=== PATIENT | female | born 1960 | race Caucasian/White ===

== ENCOUNTER 2021-02-21 13:26 | Emergency (ER) | payer OTHER ==
--- OUTSIDE RECORDS SUMMARY | 2021-02-21 13:32 | XMS REPORT | Encounter Summary ---
Author Author [facility] Address Unknown Phone Unavailable Care Team Providers Care Marine Design Engineer Name Role Phone Evan Sierra MD PCP Ashley Merrill MD Unavailable [phone] Encounter Details Care Team Description Date Type [place] [address] [place] [address] Malignant neoplasm of overlapping sites of both breasts in female, estrogen receptor positive (HCC) (Primary Dx); Encounter for screening laboratory testing for COVID-19 virus in asymptomatic patient 02/07/2021 Prep for Case General Surgery: In [facility] [address] [place] [phone] Social History Date Tobacco Use Types Packs/Day Years Used Former Smoker Smokeless Tobacco: Never Used Comments: quit 19 years ago Comments Alcohol Use Standard Drinks/Week Not Currently 0 (1 standard drink = 0.6 o z pure alcohol) Alcohol Habits Answer Date Recorded How often do you have a drink containing alcohol? Never 06/10/2020 How many drinks containing alcohol do you have on No t asked a typical day when you are drinking? How often do you have six or more drinks on one Not asked occasion? Comment: Not asked Sex Assigned at Date Recorded Female 02/14/2021 9:03 AM SHOP TEACHER Date Recorded COVID-19 Exposure Response 02/10/2021 12:36 PM SHOP TEACHER In the last month, have you been in contact with No / Unsure someone who was confirmed or suspected to have Coronavirus / COVID-19? documented as of this encounter Functional Status Date of Assessment Functional Status Response 06/13/2020 Does the patient have a hearing impairment: No 06/13/2020 Does the patient have a visual impairment: Yes documented as of this encounter Plan of Treatment Order Schedule Name Type Priority Associated Diag noses Expected: 02/15/2021 (Approximate), Expi res: 02/07/2022 COVID-19 (SARS-COV-2) PCR Microbiology Routine Enco unter for screening laboratory testing for COVID-19 virus in asymptomatic patient documented as of this encounter Visit Diagnoses Diagnosis Malignant neoplasm of overlapping sites of both breasts in female, estrogen receptor positive (HCC) - Primary Encounter for screening laboratory test ing for COVID-19 virus in asymptomatic patient documented in this encounter Orders First Ordered Date Case Request Count Last Ordered Date CASE REQUEST 1 02/07/2021 documented in this encounter Additional Health Concerns Noted Time Assessment 02/07/2021 10:00 AM SHOP TEACHER A fall risk assessment has been complet ed for the patient documented as of this encounter Care Teams Start Date End Date Marine Design Engineer Relationship Specialty 06/07/20 Evan Sierra MD PCP - General Family [address] [place] [id number] 07/21/20 Segun Merrill MD [address] [place] [address] documented as of this encounter
--- OUTSIDE RECORDS SUMMARY | 2021-02-21 13:32 | XMS REPORT | Encounter Summary ---
Author Author [facility] Address Unknown Phone Unavailable Care Team Providers Care Intelligence Director Name Role Phone Evan Sierra MD PCP Ashley Merrill MD Unavailable [phone] Encounter Details Care Team Description Date Type Department Sharonda Maya MD [id number] [place], [place] [id number] 02/17/2021 Anesthesia Operating Room: [facility] [place] [phone] Anesthesia Record Responsible Anesthesiologist Anesthesia Start Time Anesthesi a Stop Time Procedure Name Sharonda Maya MD 02/17/21 1334 02/17/21 1407 placement of port-a-cath with fluoroscopy (Right Chest) Date Time Event Comment 1244 1316 AN Equip Check 1333 Out of Pre Procedure 1334 Anes Start 1336 In Room 1337 An Start Data 1338 Start Supplemental O2 1341 Antibiotic Given 1343 Anesthesia Ready 1345 Proc Start 1404 an stop data 1407 Handoff to RN I completed my SBAR handoff to the receiving nurse. 1407 An Stop Meds Name Total midazolam (VERSED) 1 mg/mL injection 2 mg fentaNYL PF (SUBLIMAZE) injection 50 mcg propofol (DIPRIVAN) infusion 149.28 mg ceFAZolin (ANCEF) injection 2 g 2 g lidocaine PF (2%) 100mg/5mL 50 mg lactated ringers infusion 400 mL * Name O2 N2O Inspired * No blood administrations on file. Removal Type Details Placement Wounds 02/17/21; 1351; Surgical incision; 1351 by Severino, Right; Chest MEGGAN Bergman Portacath 02/17/21; 1351; X-ray; Yes; Chest X-ray 02/17/21 1351 by Pacheco Haq RN 02/17/21 1434 by Ginna Sinclair RN Peripheral 02/17/21; 1243; RN; R; Antecubital; 20 02/17/21 1243 by NATE Neville G; 1; 02/17/21; 1434 MEGGAN Wilburn documented in this encounter Social History Date Tobacco Use Types Packs/Day [...] at Date Recorded Female 02/14/2021 9:03 AM JACQUARD CARD CUTTER Date Recorded COVID-19 Exposure Response 02/17/2021 11:19 AM JACQUARD CARD CUTTER In the last month, have you been in contact with No / Unsure someone who was confirmed or suspected to have Coronavirus / COVID-19? documented as of this encounter Functional Status Date of Assessment Functional Status Response 06/13/2020 Does the patient have a hearing impairment: No 06/13/2020 Does the patient have a visual impairment: Yes documented as of this encounter OR Notes * Anesthesia Postprocedure Evaluation - Sharonda Maya MD - 02/20/2021 6:59 AM JACQUARD CARD CUTTER Post-Anesthesia Evaluation Name: Amy Lobato : 1960 Age: 60 y.o. Sex: female Procedure Information Anesthesia Start Date/Time: 02/17/21 1334 Procedure: placement of port-a-cath with fluoroscopy (Right Chest) Location: [facility] RM 7 / [facility] ICC2 OR Surgeons: Jemal Cristobal Jr., MD Post-Anesthesia Vitals Vitals Value Taken Time BP 130/76 02/17/21 1430 Temp 36.5 C (97.7 F) 02/17/21 1430 Pulse 69 02/17/21 1430 Respirations 24 PER MINUTE 02/17/21 1430 SpO2 100 % 02/17/21 1430 ABP ART BP Post Anesthesia Evaluation Note Evaluation location: pre/post Patient participation: recovered; patient participated in evaluation Level of consciousness: alert Pain management: adequate Hydration: normovolemia Temperature: 36.0C - 38.4C Airway patency: adequate Perioperative Events Postoperative Status Cardiovascular status: hemodynamically stable Respiratory status: spontaneous ventilation Additional comments: Post-Anesthesia Evaluation Attestation: I reviewed and agre e the indicated post-anesthesia care was provided. I have reviewed cheema portions of the indicated post anesthesia care. I have examined the patient's vitals, phy sical status, and complications and agree with what is documented. Staff name: Sharonda Maya MD Date: 02/20/2021 Note: late note entry; pt evaluated prior to d/c on 02/17/21 Perioperative Events UARD CARD CUTTER * Anesthesia Preprocedure Evaluation - Sharonda Maya MD - 02/17/2021 12:15 PM JACQUARD CARD CUTTER Anesthesia Pre-Procedure Evaluation Name: Amy Lobato : 1960 Age: 60 y.o. Sex: female Procedure Info: Procedure Information Date/Time: 02/17/21 1300 Procedure: placement of port-a-cath with fluoroscopy (N/A ) Location: [facility] RM 7 / [facility]2 OR Surgeons: Jemal Cristobal Jr., MD Physical Assessment Vital Signs (last filed in past 24 hours): BP: 141/77 (02/17 1221) Temp: 36.9 C (98.4 F) (02/17 1221) Pulse: 74 (02/17 1221) Respirations: 15 PER MINUTE (02/17 1221) SpO2: 100 % (02/17 1221) Height: 154.9 cm (61") (02/17 1221) Weight: 42.6 kg (94 lb) (02/17 1221) Patient History Allergies Allergen Reactions Duloxetine BLISTERS Reported "withdrawl symptoms of agitation, insomnia and development of blister s. Current Medications Medication Directions amitriptyline (ELAVIL) 25 mg tablet Take one tablet by mouth at bedtime daily. I ndications: neuropathic pain loperamide (IMODIUM A-D) 2 mg capsule Take 2 capsules by mouth after first loose /frequent bowel movement, then 1 capsule every 2 hours (2 capsules every 4 hours at night) until 12 hours have passed without a bowel movement. morphine SR (MS CONTIN) 15 mg tablet Take one tablet by mouth every 8 hours ondansetron (ZOFRAN) 8 mg tablet Take one tablet by mouth every 8 hours as neede d for Nausea or Vomiting. oxyCODONE/acetaminophen (ENDOCET) 5/325 mg tablet Take one tablet to two tablets by mouth every 3 hours as needed for Pain senna/docusate (SENOKOT-S) 8.6/50 mg tablet Take 1-2 tablets by mouth twice kary y as needed (constipation). traZODone (DESYREL) 50 mg tablet Take one tablet by mouth at bedtime as needed f or Sleep. If not helpful after 2 weeks, can increase to 100 mg (2 pills) every n ight at bedtime. Review of Systems/Medical History Patient summary reviewed Nursing notes reviewed Pertinent labs reviewed PONV Screening: Female gender, Non-smoker and Postoperative opioids No history of anesthetic complications No family history of anesthetic complications Airway - negative Pulmonary - negative Cardiovascular - negative Exercise tolerance: >4 METS GI/Hepatic/Renal - negative Neuro/Psych - negative Musculoskeletal - negative Endocrine/Other - negative Malignancy: breast CA; s/p mastectomy. Physical Exam Airway Findings Mallampati: I TM distance: >3 FB Neck ROM: full Mouth opening: good Airway patency: adequate Dental Findings: Upper dentures Comments: Lower edentulous Cardiovascular Findings: Negative Pulmonary Findings: Negative Abdominal Findings: Not obese Neurological Findings: Normal mental status Diagnostic Tests Hematology: Lab Results Component Value Date HGB 11.2 02/07/2021 HCT 32.3 02/07/2021 PLTCT 373 02/07/2021 WBC 6.0 02/07/2021 NEUT 73 02/07/2021 ANC 4.40 02/07/2021 ALC 0.70 02/07/2021 SANDEEP 14 02/07/2021 AMC 0.90 02/07/2021 EOSA 0 02/07/2021 ABC 0.00 02/07/2021 MCV 101.0 02/07/2021 MCH 34.9 02/07/2021 MCHC 34.6 02/07/2021 MPV 6.3 02/07/2021 RDW 14.2 02/07/2021 General Chemistry: Lab Results Component Value Date NA 135 02/07/2021 K 4.4 02/07/2021 CL 98 02/07/2021 CO2 27 02/07/2021 GAP 10 02/07/2021 BUN 14 02/07/2021 CR 0.64 02/07/2021 GLU 93 02/07/2021 GLU 102 08/19/2020 CA 9.4 02/07/2021 ALBUMIN 4.1 02/07/2021 MG 2.4 01/25/2021 TOTBILI 0.6 02/07/2021 Coagulation: Lab Results Component Value Date PTT 30.9 01/25/2021 INR 1.0 01/25/2021 Anesthesia Plan ASA score: 3 Plan: MAC NPO status: acceptable Informed Consent Anesthetic plan and risks discussed with patient. Plan discussed with: LIQUEFIED NATURAL GAS PLANT OPERATOR. UARD CARD CUTTER documented in this encounter Plan of Treatment Not on filedocumented as of this encounter Visit Diagnoses Not on filedocumented in this encounter Administered Medications Action Date Dose Rate Site Medication Order MAR Action 02/17/2021 1:41 PM JACQUARD CARD CUTTER 2 g ceFAZolin (ANCEF) injection 2 g Given 2 g, Intravenous, ONCE, 1 dose, On Sat02/17/21 at 1230, Pre-Op 02/17/2021 1:45 PM JACQUARD CARD CUTTER 25 mcg fentaNYL citrate PF (SUBLIMAZE) Given injection Intravenous, INTRA-PROCEDURE MED, Starting on Sat02/17/21 at 1338, Until Sat02/17/21 at 1407, Anesthesia Intra-op 25 mcg Given 02/17/2021 1:38 PM JACQUARD CARD CUTTER 02/17/2021 1:39 PM JACQUARD CARD CUTTER 50 mg lidocaine PF syringe Given Intravenous, INTRA-PROCEDURE MED, Starting on Sat02/17/21 at 1339, Until Sat02/17/21 at 1407, Anesthesia Intra-op 02/17/2021 1:35 PM JACQUARD CARD CUTTER 2 mg midazolam (VERSED) injection Given Intravenous, INTRA-PROCEDURE MED, Starting on Sat02/17/21 at 1335, Until Sat02/17/21 at 1407, Anesthesia Intra-op 02/17/2021 1:39 PM JACQUARD CARD CUTTER 100 mcg/kg/min 25.56 mL/hr propofol (DIPRIVAN) infusion Given - New 20 mL, Intravenous, INTRA-PROCEDURE Bag MED(CONT), Starting on Sat02/17/21 at 1339, Until Sat02/17/21 at 1407, Anesthesia Intra-op 30 mg Given - New Bag 02/17/2021 1:38 PM JACQUARD CARD CUTTER documented in this encounter Additional Health Concerns Noted Time Assessment 02/10/2021 12:36 PM JACQUARD CARD CUTTER A fall risk assessment has been complet ed for the patient documented as of this encounter Care Teams Start Date End Date Intelligence Director Relationship Specialty 06/07/20 Evan Sierra MD PCP - General Family [facility] [place] [address] 07/21/20 Segun Merrill MD [address] [place] [address] documented as of this encounter
--- OUTSIDE RECORDS SUMMARY | 2021-02-21 13:32 | XMS REPORT | Encounter Summary ---
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 [place], [place] Referral ID Status Reason Start Date Expiration Visits Vi sits Date Requested Authorized [id number] Authorized 01/26/2021 01/26/2022 17 17 Encounter Details Care Team Description Date Type Department Jovany Choi MD [address] [place] [address] 02/07/2021 Hospital Oncology: [facility], [facility] [address] [place] [address] Social History Date Tobacco Use Types Packs/Day [...] at Date Recorded Female 02/14/2021 9:03 AM PROFESSIONAL SERVICES MANAGER Date Recorded COVID-19 Exposure Response 02/07/2021 8:19 AM PROFESSIONAL SERVICES MANAGER In the last month, have you been in contact with No / Unsure someone who was confirmed or suspected to have Coronavirus / COVID-19? documented as of this encounter Functional Status Date of Assessment Functional Status Response 06/13/2020 Does the patient have a hearing impairment: No 06/13/2020 Does the patient have a visual impairment: Yes documented as of this encounter Medications at Time of Discharge Start Date End Date Medication Sig Dispensed Refills 02/06/2021 amitriptyline (ELAVIL) 25 Take one 30 tablet 1 mg tabletIndications: tablet by neuropathic pain mouth at bedtime daily. Indications: neuropathic pain 07/12/2020 loperamide (IMODIUM A-D) Take 2 90 capsule 3 2 mg capsuleIndications: capsules by Malignant neoplasm of mouth after overlapping sites of both first breasts in female, loose/frequen estrogen receptor t bowel positive (HCC) movement, then 1 capsule every 2 hours (2 capsules every 4 hours at night) until 12 hours have passed without a bowel movement. 01/26/2021 morphine SR (MS CONTIN) Take one 90 tablet 0 15 mg tablet tablet by mouth every 8 hours 07/21/2020 ondansetron (ZOFRAN) 8 mg Take one 90 tablet 3 tablet tablet by mouth every 8 hours as needed for Nausea or Vomiting. 01/26/2021 oxyCODONE/acetaminophen Take one 90 tablet 0 (ENDOCET) 5/325 mg tablet tablet to two tablets by mouth every 3 hours as needed for Pain senna/docusate Take 1-2 0 (SENOKOT-S) 8.6/50 mg tablets by tablet mouth twice daily as needed (constipation ). 07/21/2020 traZODone (DESYREL) 50 mg Take one 60 tablet 3 tablet tablet by mouth at bedtime as needed for Sleep. If not helpful after 2 weeks, can increase to 100 mg (2 pills) every night at bedtime. documented as of this encounter Discharge Disposition Code Departure Means Destination Disposition Home Home or Self Care documented in this encounter Progress Notes * Angelita Montoya RN - 02/07/2021 11:00 AM PROFESSIONAL SERVICES MANAGER CHEMO NOTE Verified chemo consent signed and in chart. Verified initiate chemo order in O2 Blood return positive via: None BSA and dose double checked (agree with orders as written) with: yes see MAR Labs/applicable tests checked: CBC and Comprehensive Metabolic Panel (CMP) Chemo regime: Drug/cycle/day: C1D1 fam-trastuzumab deruxtecan-nxki (ENHERTU) 237.6 mg in dextrose 5% (D5W) 111.88 m L IVPB Rate verified and armband double checkwith second RN: yes Patient education offered and stated understanding. Denies questions at this santos e. Patient arrived to CC treatment for C1D1 of Enhertu. Patient has no question, co ncerns or complaints at this time. 1400 Pt received treatment as ordered without incidences. Pt's PIV was flushed and removed upon completion. Pt left ambulatory with no further questions. ESSIONAL SERVICES MANAGER documented in this encounter Plan of Treatment Not on filedocumented as of this encounter Visit Diagnoses Diagnosis Malignant neoplasm of overlapping sites of both breasts in female, estrogen receptor positive (HCC) - Primary * Addendum Note - Delaney Galvan - 02/07/2021 11:00 AM PROFESSIONAL SERVICES MANAGER Encounter addended by: Delaney Galvan on: 02/09/2021 8:43 AM Actions taken: Charge Capture section accepted ESSIONAL SERVICES MANAGER documented in this encounter Administered Medications Action Date Dose Rate Site Medication Order MAR Action 02/07/2021 12:29 PM PROFESSIONAL SERVICES MANAGER 120 mg Arm, Rig ht denosumab (XGEVA) injection 120 mg Given 120 mg, Subcutaneous, ONCE, 1 dose, On Sat02/07/21 at 1222, Allow vial to come to room temperature prior to administration. NOTE: This is a HIGH ALERT Medication. 02/07/2021 11:45 AM PROFESSIONAL SERVICES MANAGER 12 mg dexAMETHasone (DECADRON) tablet 12 mg Given 12 mg, Oral, ONCE, 1 dose, On Sat02/07/21 at 1145 02/07/2021 12:31 PM PROFESSIONAL SERVICES MANAGER 237.6 mg 74.6 mL/hr fam-trastuzumab deruxtecan-nxki Given - New (ENHERTU) 237.6 mg in dextrose 5% (D5W) Bag 111.88 mL IVPB 237.6 mg (5.4 mg/kg 44 kg Treatment Plan Recorded weight), Intravenous, 111.88 mL, Administer over 90 Minutes, ONCE, 1 dose, On Sat 1 at 1214, Administer first infusion over 90 minutes. For subsequent infusions, administer over 30 minutes if prior infusions were well tolerated. Slow or interrupt the infusion rate if the patient develops infusion-related symptoms. Permanently discontinue in case of severe infusion reactions. NURSING: Administration required by chemotherapy credentialed nurse when ordered for a cancer indication NOTE: This is a HIGH ALERT Medication. 02/07/2021 11:45 AM PROFESSIONAL SERVICES MANAGER 0.25 mg palonosetron(+) (ALOXI) injection 0.25 Given mg 0.25 mg, Intravenous, ONCE, 1 dose, On Sat02/07/21 at 1145 documented in this encounter Orders First Ordered Date Nursing Count Last Ordered Date [facility] PATIENT CARE 1 04/09/2020 PROTOCOLS documented in this encounter Additional Health Concerns Noted Time Assessment 02/07/2021 10:00 AM PROFESSIONAL SERVICES MANAGER A fall risk assessment has been complet ed for the patient documented as of this encounter Care Teams Start Date End Date Vessel Scrapper Helper Relationship Specialty 06/07/20 Evan Sierra MD PCP - General [address] [address] 07/21/20 Segun Merrill MD Medicine [address] [facility] [place] [address] documented as of this encounter
--- OUTSIDE RECORDS SUMMARY | 2021-02-21 13:32 | XMS REPORT | Encounter Summary ---
Author Author [facility] Organization [facility] Address Unknown Phone Unavailable Care Team Providers Care Test Center Administrator Name Role Phone Evan Sierra MD PCP Ashley Merrill MD Unavailable [phone] Encounter Details Care Team Description Date Type Department Jovany Choi MD [address] [place] [address] 02/17/2021 Orders Only Oncology: [facility] [address] [place], [place] [phone] Social History Date Tobacco Use Types Packs/Day [...] at Date Recorded Female 02/14/2021 9:03 AM SHIRT TRIMMER Date Recorded COVID-19 Exposure Response 02/10/2021 12:36 PM SHIRT TRIMMER In the last month, have you been in contact with No / Unsure someone who was confirmed or suspected to have Coronavirus / COVID-19? documented as of this encounter Functional Status Date of Assessment Functional Status Response 06/13/2020 Does the patient have a hearing impairment: No 06/13/2020 Does the patient have a visual impairment: Yes documented as of this encounter Plan of Treatment Not on filedocumented as of this encounter Visit Diagnoses Not on filedocumented in this encounter Additional Health Concerns Noted Time Assessment 02/10/2021 12:36 PM SHIRT TRIMMER A fall risk assessment has been complet ed for the patient documented as of this encounter Care Teams Start Date End Date Test Center Administrator Relationship Specialty 06/07/20 Evan Sierra MD PCP - General Family [address] [place] [id number] 07/21/20 Segun Merrill MD [address] [facility] [place], [place] [id number] documented as of this encounter
--- OUTSIDE RECORDS SUMMARY | 2021-02-21 13:32 | XMS REPORT | Encounter Summary ---
Author Author [facility] Organization [facility] Address Unknown Phone Unavailable Care Team Providers Care Field Service Analyst Name Role Phone Evan Sierra MD PCP Ashley Merrill MD Unavailable [phone] Reason for Visit * Reason Comments Labs Only Encounter Details Care Team Description Date Type Department Jovany Choi MD [address] [place] [address] 02/07/2021 Hospital Laboratory: [address], [address] [place] [phone] Social History Date Tobacco Use Types Packs/Day [...] at Date Recorded Female 02/14/2021 9:03 AM RETURN [employer] Date Recorded COVID-19 Exposure Response 02/07/2021 8:19 AM [employer] In the last month, have you been [...] or Self Care documented in this encounter Plan of Treatment Not on filedocumented as of this encounter Procedures Comments Procedure Name Priority Date/Time Associated Diag nosis HC CBC W/ AUTOMATED DIFF Routine 02/07/2021 Malig nant neoplasm of 8:55 AM [employer]URN [employer] overlapping sites of both breasts in female, estrogen receptor positive (HCC) HC COMPREHENSIVE Routine 02/07/2021 Malignant sam plasm of METABOLIC PANEL 8:55 AM RETURN [employer] overlapping sites o f both breasts in female, estrogen receptor positive (HCC) documented in this encounter Results * COMPREHENSIVE METABOLIC PANEL (02/07/2021 8:55 AM RETURN [employer]) Sodium 135 (L) 137 - 147 MMOL/L [facility] Potassium 4.4 3.5 - 5.1 MMOL/L [facility] Chloride 98 98 - 110 MMOL/L [facility] Glucose 93 70 - 100 MG/DL [facility] Blood Urea 14 7 - 25 MG/DL [facility] Nitrogen Creatinine 0.64 0.4 - 1.00 MG/DL [facility] Calcium 9.4 8.5 - 10.6 MG/DL [facility] Total Protein 7.1 6.0 - 8.0 G/DL [facility] Total Bilirubin 0.6 0.3 - 1.2 MG/DL [facility] Albumin 4.1 3.5 - 5.0 G/DL [facility] Alk Phosphatase 376 (H) 25 - 110 U/L [facility] AST (SGOT) 124 (H) 7 - 40 U/L [facility] CO2 27 21 - 30 MMOL/L [facility] ALT (SGPT) 90 (H) 7 - 56 U/L [facility] Anion Gap 10 3 - 12 [facility] eGFR Non >60 >60 mL/min [facility] Comment: [place] The eGFR is not validated f or use in drug dosing adjustments. Continue to use estimated creatinine clearance per dosing reference text. Please contact the Clinical Pharmacist for questions. eGFR >60 >60 mL/min [facility] [place] Comment: The eGFR is not validated for use in drug dosing adjustments. Continue to use estimated creatinine clearance per dosing reference text. Please contact the Clinical Pharmacist for questions. Specimen Blood Performing Organization Address City/State/ZIP Code P chad Number [facility] [address] [place] [address] * CBC AND DIFF (02/07/2021 8:55 AM RETURN [employer]) White Blood 6.0 4.5 - 11.0 K/UL [facility] Cells RBC 3.19 (L) 4.0 - 5.0 M/UL [facility] Hemoglobin 11.2 (L) 12.0 - 15.0 GM/DL [facility] Hematocrit 32.3 (L) 36 - 45 % [facility] MCV 101.0 (H) 80 - 100 FL [facility] MCH 34.9 (H) 26 - 34 PG [facility] MCHC 34.6 32.0 - 36.0 G/DL [facility] RDW 14.2 11 - 15 % [facility] Platelet Count 373 150 - 400 K/UL [facility] MPV 6.3 (L) 7 - 11 FL [facility] Neutrophils 73 41 - 77 % [facility] Lymphocytes 12 (L) 24 - 44 % [facility] Monocytes 14 (H) 4 - 12 % [facility] Eosinophils 0 0 - 5 % [facility] Basophils 1 0 - 2 % [facility] Absolute 4.40 1.8 - 7.0 K/UL [facility] Neutrophil Count Absolute Lymph 0.70 (L) 1.0 - 4.8 K/UL [facility] Count Absolute 0.90 (H) 0 - 0.80 K/UL [facility] Monocyte Count Absolute 0.00 0 - 0.45 K/UL [facility] Eosinophil Count Absolute 0.00 0 - 0.20 K/UL [facility] Basophil Count Specimen Blood Performing Organization Address City/State/ZIP Code P chad Number [facility] [address] [place] [address] documented in this encounter Visit Diagnoses Diagnosis Malignant neoplasm of overlapping sites of both breasts in female, estrogen receptor positive (HCC) - Primary documented in this encounter Additional Health Concerns Noted Time Assessment 02/07/2021 10:00 AM [employer]URN [employer] A fall risk assessment has been complet ed for the patient documented as of this encounter Care Teams Start Date End Date Field Service Analyst Relationship Specialty 06/07/20 Evan Sierra MD PCP - General Family [facility] [place] [address] 07/21/20 Segun Merrill MD [address] [facility] [place], [place] [phone] documented as of this encounter
--- OUTSIDE RECORDS SUMMARY | 2021-02-21 13:32 | XMS REPORT | Encounter Summary ---
Author Author [facility] Organization [facility] Address Unknown Phone Unavailable Care Team Providers Care Telephone Solicitor Supervisor Name Role Phone Evan Sierra MD PCP Ashley Merrill MD Unavailable [phone] Encounter Details Care Team Description Date Type Department Jovany Choi MD [address] [place] [address] 02/06/2021 Orders Only Oncology: [facility] [address] 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
--- OUTSIDE RECORDS SUMMARY | 2021-02-21 13:32 | XMS REPORT | Clinical Summary ---
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 If you d o not see the information that you expected, contact Release of Information in [facility] [employer] Information Management department at [phone] for further assistan ce in locating additional records.[facility] Allergies Comments Active Allergy Reactions Severity Noted Date Reported "withdrawl symptoms of agitation, insomnia and development of blisters. Duloxetine BLISTERS High 02/03/2021 Medications End Date Status Medication Sig Dispensed Refills Start Date Active senna/docusate Take 1-2 0 (SENOKOT-S) 8.6/50 mg tablets by tablet mouth twice daily as needed (constipation ). Active loperamide (IMODIUM A-D) Take 2 90 capsule 3 0 2 mg capsuleIndications: capsules by 1 Malignant neoplasm of mouth after overlapping sites of both first breasts in female, loose/frequen estrogen receptor t bowel positive (HCC) movement, then 1 capsule every 2 hours (2 capsules every 4 hours at night) until 12 hours have passed without a bowel movement. Active traZODone (DESYREL) 50 mg Take one 60 tablet 3 tablet tablet by 1 mouth at bedtime as needed for Sleep. If not helpful after 2 weeks, can increase to 100 mg (2 pills) every night at bedtime. Active ondansetron (ZOFRAN) 8 mg Take one 90 tablet 3 tablet tablet by 1 mouth every 8 hours as needed for Nausea or Vomiting. Active oxyCODONE/acetaminophen Take one 90 tablet 0 (ENDOCET) 5/325 mg tablet tablet to two 1 tablets by mouth every 3 hours as needed for Pain Active morphine SR (MS CONTIN) Take one 90 tablet 0 15 mg tablet tablet by 1 mouth every 8 hours Active amitriptyline (ELAVIL) 25 Take one 30 tablet 1 mg tabletIndications: tablet by 1 neuropathic pain mouth at bedtime daily. Indications: neuropathic pain Active HYDROcodone/acetaminophen Take one 10 tablet 0 (NORCO) 5/325 mg tablet tablet by 1 mouth every 4 hours as needed for Pain 01/26/2021 Discontinued (Reorder) oxyCODONE/acetaminophen Take one 90 tablet 0 (ENDOCET) 5/325 mg tablet tablet to two 1 tablets by mouth every 3 hours as needed for Pain 01/26/2021 Discontinued (Reorder) morphine SR (MS CONTIN) Take one 90 tablet 0 15 mg tablet tablet by 1 mouth every 8 hours 02/03/[address] (CYMBALTA) Take one 30 capsule 3 1 30 mg capsule capsule by 1 mouth daily. Active Problems Problem Noted Date Research study patient 01/20/2021 Last Assessment & Plan: Formatting of this note might be differ ent from the original. No ocular findings to prevent patient f rom getting treatment F/U per study recommendations Malignant neoplasm of overlapping sites of both breas ts in female, estrogen 07/12/2020 receptor positive Cancer Staging: Clinical stage from 06/30: Stage IV (cT1c, cN1, pM1, ER+, IL+, HER2-) - Signed by Mckenzie Ashraf APRN-ALVA on 07/12/2020 Encounters Care Team Description Date Type Specialty Sharonda Maya MD 02/17/2021 Anesthesia Event Jemal Cristobal Jr., MD placement of port-a-cath with fluoroscop y 02/17/2021 Surgery Jemal Cristobal Jr., MD Arrived 02/17/2021 Hospital Radiology Encounter Jemal Cristobal Jr., MD Malignant neoplasm of overlapping sites of both breasts in female, estrogen receptor positive (HCC) 02/17/2021 Hospital Encounter 02/17/2021 Jovany Ochoa MD 02/17/2021 Orders Only Oncology 02/10/2021 Jovany Ochoa MD 02/07/2021 Hospital Oncology Encounter Jovany Choi MD Malignant neoplasm of left breast in fem [place], estrogen receptor positive, unspecified site of breast (HCC) (Primary Dx) 02/07/2021 Office Visit Jovany Monroy MD 02/07/2021 Hospital Lab Encounter Jemal Cristobal Jr., MD Surgery 02/07/2021 Telephone General Surgery Jemal Cristobal Jr., MD Malignant neoplasm of overlapping sites of both breasts in female, estrogen receptor positive (HCC) (Primary Dx); Encounter for screening laboratory testing for COVID-19 virus in asymptomatic patient 02/07/2021 Prep for [facility] General Surgery 02/07/2021 Jovany Ochoa MD 02/06/2021 Orders Only Oncology Jovany Choi MD 02/06/2021 Orders Only Oncology Ashley Merrill MD Palliative Care 02/06/2021 Telephone Palliative Care Yessica Lu, PHARMD 02/04/2021 Orders Only Oncology Ashley Merrill MD Palliative Care 02/03/2021 Telephone Palliative Care Ashley Merrill MD Palliative Care 01/26/2021 Telephone Palliative Care Ashley Merrill MD 01/26/2021 Orders Only Oncology Yessica Lu, PHARMD 01/26/2021 Orders Only Oncology Jovany Choi MD 01/25/2021 Hospital Radiology Encounter Jovany Choi MD 01/25/2021 Hospital Radiology Encounter Jovany Choi MD 01/25/2021 Hospital Radiology Encounter Jovany Choi MD 01/25/2021 Hospital Radiology Encounter Jovany Choi MD 01/25/2021 Hospital Encounter Jovany Choi MD Research 01/25/2021 Telephone Oncology 01/25/2021 Ratna Brito APRN-FISH FILLETER Results 01/23/2021 Telephone Oncology Jovany Choi MD 01/20/2021 Hospital Cardiology Encounter Joselyn Fisher MD Research study patient 01/20/2021 Office Visit Ophthalmology 01/20/2021 Travel Jovany Choi MD 01/17/2021 Orders Only Oncology Jovany Choi MD Malignant neoplasm of overlapping sites of both breasts in female, estrogen receptor positive (HCC) (Primary Dx); Clinical trial participant 01/17/2021 Orders Only Oncology Hali Yuusf PHARMD 01/17/2021 Documentation Oncology Jovany Choi MD Malignant neoplasm of overlapping sites of both breasts in female, estrogen receptor positive (HCC) (Primary Dx); Clinical trial participant 01/16/2021 Orders Only Oncology Jovany Choi MD 01/16/2021 Orders Only Oncology Jovany Choi MD 01/16/2021 Orders Only Oncology Jovany Choi MD Bilateral malignant neoplasm of breast i n female, estrogen receptor positive, unspecified site of breast (HCC) (Primary Dx) 01/13/2021 Office Visit Oncology Jovany Choi MD 01/13/2021 Hospital Oncology Encounter Jovany Choi MD 01/13/2021 [facility] Radiology Encounter Jovany Choi MD 01/13/2021 [facility] Radiology Encounter Jovany Choi MD 01/13/2021 Documentation Oncology Jovany Choi MD Malignant neoplasm of overlapping sites of both breasts in female, estrogen receptor positive (HCC) (Primary Dx); Clinical trial participant 01/13/2021 Orders Only Oncology 01/13/2021 Travel Ashley Merrill MD Palliative Care 01/11/2021 Telephone Palliative Care Ashley Merrill MD Pain 01/06/2021 Telephone Palliative Care Ashley Merrill MD 12/30/2020 Refill Palliative Care Ashley Merrill MD Palliative Care 12/21/2020 Telephone Palliative Care Jovany Choi MD Malignant neoplasm of overlapping sites of both breasts in female, estrogen receptor positive (HCC) (Primary Dx) 12/21/2020 Orders Only Oncology Jovany Choi MD Appointment Request 12/19/2020 Telephone Oncology Ratna Ashraf APRN-FISH FILLETER 12/19/2020 Orders Only Oncology Ashley Merrill MD 12/16/2020 Hospital Oncology Encounter Ashley Merrill MD Neoplasm related pain (Primary Dx); Counseled about COVID-19 virus infection; Neuropathic pain; Chemotherapy induced nausea and vomiting 12/16/2020 Office Visit Palliative Care 12/16/2020 Travel Jovany Choi MD 12/13/2020 Documentation Oncology Ratna Ashraf APRN-FISH FILLETER 12/08/2020 Orders Only Oncology Ratna Ashraf APRN-FISH FILLETER 12/02/2020 Orders Only Oncology Jovany Choi MD Appointment Request 12/01/2020 Telephone Oncology Jovany Choi MD 12/01/2020 Documentation Oncology Ashley Merrill MD 11/30/2020 Refill Oncology Ashley Merrill MD Covid-19 Exposure 11/30/2020 Telephone Palliative Care from Last 3 Months Surgical History Surgery Date Site/Laterality Comments MASTECTOMY Medical History Medical History Date Comments Breast cancer (HCC) Family History Medical History Relation Name Comments Dementia Father Hypertension Father Parkinson's Father Cancer Mother Heart problem Mother Hypertension Mother Stroke Mother Relation Name Status Comments Father Alive Mother Alive Social History Date Tobacco Use Types Packs/Day Years Used Former Smoker Smokeless Tobacco: Never Used Tobacco Cessation: Counseling Given: No Comments: quit 19 years ago Comments Alcohol [...] at Date Recorded Female 02/14/2021 9:03 AM WINCH DERRICK OPERATOR Date Recorded COVID-19 Exposure Response 02/17/2021 11:19 AM WINCH DERRICK OPERATOR In the last month, have you been in contact with No / Unsure someone who was confirmed or suspected to have Coronavirus / COVID-19? Last Filed Vital Signs Reading Time Taken Comments Vital Sign 130/76 02/17/2021 2:30 PM WINCH DERRICK OPERATOR Blood Pressure 69 02/17/2021 2:30 PM WINCH DERRICK OPERATOR Pulse 36.5 C (97.7 F) 02/17/2021 2:30 PM WINCH DERRICK OPERATOR Temperature 16 02/07/2021 10:01 AM WINCH DERRICK OPERATOR Respiratory Rate 100% 02/17/2021 2:30 PM WINCH DERRICK OPERATOR Oxygen Saturation - - Inhaled Oxygen Concentration 42.6 kg (94 lb) 02/17/2021 12:21 PM WINCH DERRICK OPERATOR Weight 154.9 cm (5' 1") 02/17/2021 12:21 PM WINCH DERRICK OPERATOR Height 17.76 02/17/2021 12:21 PM WINCH DERRICK OPERATOR Body Mass Index Plan of Treatment Health Maintenance Due Date Last Done Comments DTAP/TDAP VACCINES (1 - 12/03/1977 Tdap) PHYSICAL (COMPREHENSIVE) 12/03/1977 EXAM CERVICAL CANCER SCREENING 12/03/1980 BREAST CANCER SCREENING 1999 COLORECTAL CANCER 12/03/2009 SCREENING SHINGLES RECOMBINANT 12/03/2009 VACCINE (1 of 2) INFLUENZA VACCINE 10/30/2020 HEPATITIS C SCREENING Completed 01/25/2021 HIV SCREENING Completed 01/25/2021 Implants Device Identifier Shelf Expiration Date Model / Serial / L ot Implanted Type Area Manufactur er 03/31/2022 [id number] / NA / [id number] [employer] Right: Chest Implanted: Qty: 1 on 02/17/2021 by Jemal Cristobal Jr., MD at [facility] Procedures Comments Procedure Name Priority Date/Time Associated Diag nosis FLUORO MOBILE IN OR Routine 02/17/2021 Malignant neoplasm of 1:58 PM WINCH DERRICK OPERATOR overlapping sites of both breasts in female, estrogen receptor positive (HCC) INSERTION TUNNELED 02/17/2021 Malignant neoplasm of CENTRAL VENOUS ACCESS 1:36 PM WINCH DERRICK OPERATOR overlapping sit es of both DEVICE WITH SUBCUTANEOUS breasts in female, PORT - AGE 4 YEARS AND estrogen receptor OVER positive (HCC) ECG-SCAN 02/17/2021 12:00 AM WINCH DERRICK OPERATOR HC COMPREHENSIVE Routine 02/07/2021 Malignant sam plasm of METABOLIC PANEL 8:55 AM WINCH DERRICK OPERATOR overlapping sites o f both breasts in female, estrogen receptor positive (HCC) HC CBC W/ AUTOMATED DIFF Routine 02/07/2021 Malig nant neoplasm of 8:55 AM WINCH DERRICK OPERATOR overlapping sites of both breasts in female, estrogen receptor positive (HCC) NM BONE SCAN WHOLEBODY Routine 01/25/2021 Maligna nt neoplasm of 12:46 PM CDT overlapping sites of both breasts in female, estrogen receptor positive (HCC) Clinical trial participant CT CHEST WO CONTRAST Routine 01/25/2021 Malignant neoplasm of 9:32 AM CDT overlapping sites of both breasts in female, estrogen receptor positive (HCC) Clinical trial participant CT HEAD WO/W CONTRAST Routine 01/25/2021 Malignan t neoplasm of 9:32 AM CDT overlapping sites of both breasts in female, estrogen receptor positive (HCC) Clinical trial participant HC URINE MACRO CCC Routine 01/25/2021 Malignant n eoplasm of 8:43 AM CDT overlapping sites of both breasts in female, estrogen receptor positive (HCC) Clinical trial participant HC MAGNESIUM Routine 01/25/2021 Malignant neopl asm of 8:10 AM CDT overlapping sites of both breasts in female, estrogen receptor positive (HCC) Clinical trial participant HC PT(INR) Routine 01/25/2021 Malignant neopl asm of 8:10 AM CDT overlapping sites of both breasts in female, estrogen receptor positive (HCC) Clinical trial participant HC PTT(APTT) Routine 01/25/2021 Malignant neopl asm of 8:10 AM CDT overlapping sites of both breasts in female, estrogen receptor positive (HCC) Clinical trial participant HC LDH Routine 01/25/2021 Malignant neopl asm of 8:10 AM CDT overlapping sites of both breasts in female, estrogen receptor positive (HCC) Clinical trial participant HC HIV 1/2 MANDY AG SCREEN Routine 01/25/2021 Malig nant neoplasm of 8:10 AM CDT overlapping sites of both breasts in female, estrogen receptor positive (HCC) Clinical trial participant HC HEP C PCR-QUANT Routine 01/25/2021 Malignant n eoplasm of 8:10 AM CDT overlapping sites of both breasts in female, estrogen receptor positive (HCC) Clinical trial participant HC HEPATITIS B-S ANTIGEN Routine 01/25/2021 Malig nant neoplasm of 8:10 AM CDT overlapping sites of both breasts in female, estrogen receptor positive (HCC) Clinical trial participant HC COMPREHENSIVE Routine 01/25/2021 Malignant sam plasm of METABOLIC PANEL 8:10 AM CDT overlapping sites o f both breasts in female, estrogen receptor positive (HCC) Clinical trial participant HC CBC W/ AUTOMATED DIFF Routine 01/25/2021 Malig nant neoplasm of 8:10 AM CDT overlapping sites of both breasts in female, estrogen receptor positive (HCC) Clinical trial participant HC TROPONIN-I Routine 01/25/2021 Malignant neopl asm of 8:10 AM CDT overlapping sites of both breasts in female, estrogen receptor positive (HCC) Clinical trial participant PFT COMPLETE PULM Routine 01/25/2021 Malignant ne oplasm of FUNCTION 7:25 AM CDT overlapping sites o f both breasts in female, estrogen receptor positive (HCC) Clinical trial participant 2D + DOPPLER ECHO W/ Routine 01/20/2021 Malignant neoplasm of STRAIN NO CONTRAST 3:43 PM CDT overlapping sites of both breasts in female, estrogen receptor positive (HCC) Clinical trial participant CT ABD/PELV W CONTRAST Routine 01/13/2021 Maligna nt neoplasm of 8:51 AM CDT left breast in female, estrogen receptor positive, unspecified site of breast (HCC) CT CHEST W CONTRAST Routine 01/13/2021 Malignant neoplasm of 8:51 AM CDT left breast in female, estrogen receptor positive, unspecified site of breast (HCC) POC CREATININE, RAD 01/13/2021 8:22 AM CDT HC COMPREHENSIVE Routine 01/13/2021 Malignant sam plasm of METABOLIC PANEL 8:15 AM CDT left breast in fema le, estrogen receptor positive, unspecified site of breast (HCC) HC CBC W/ AUTOMATED DIFF Routine 01/13/2021 Malig nant neoplasm of 8:15 AM CDT left breast in female, estrogen receptor positive, unspecified site of breast (HCC) ECG-SCAN 01/13/2021 12:00 AM CDT ECG-SCAN 01/13/2021 12:00 AM CDT ECG-SCAN 01/13/2021 12:00 AM CDT HC COMPREHENSIVE Routine 12/16/2020 Malignant sam plasm of METABOLIC PANEL 11:20 AM CDT overlapping sites o f both breasts in female, estrogen receptor positive (HCC) HC CBC W/ AUTOMATED DIFF Routine 12/16/2020 Malig nant neoplasm of 11:20 AM CDT overlapping sites of both breasts in female, estrogen receptor positive (HCC) from Last 3 Months Results * FLUORO MOBILE IN OR (02/17/2021 1:58 PM WINCH DERRICK OPERATOR) Modality Anatomical Region Laterality Radio Fluoroscopy Specimen Narrative [facility] - 02/17/2021 2:04 PM WINCH DERRICK OPERATOR This order has been auto finalized and does not contain a result. Performing Organization Address City/State/ZIP Code P chad Number [facility] * ECG-SCAN (02/17/2021 12:00 AM WINCH DERRICK OPERATOR) Narrative 02/17/2021 12:00 AM WINCH DERRICK OPERATOR Ordered by an unspecified provider. * CBC AND DIFF (02/07/2021 8:55 AM WINCH DERRICK OPERATOR) Only the most recent of 4 results within the time period is included. White Blood 6.0 4.5 - 11.0 K/UL [...] Code P chad Number [facility] [id number] [place] [address] * COMPREHENSIVE METABOLIC PANEL (02/07/2021 8:55 AM WINCH DERRICK OPERATOR) Only the most recent of 4 results within the time period is included. [facility] Signature Sodium 135 (L) 137 - 147 MMOL/L [...] Non >60 >60 mL/min [facility] Comment: [place] The eGFR is not validated f or use in drug dosing adjustments. Continue to use estimated creatinine clearance per dosing reference text. Please contact the Clinical Pharmacist for questions. eGFR >60 >60 mL/min [facility] [place] Comment: The eGFR is not validated for use in drug dosing adjustments. Continue to use estimated creatinine clearance per dosing reference text. Please contact the Clinical Pharmacist for questions. Specimen Blood Performing Organization Address City/State/ZIP Code P chad Number [facility] [address] [place] [address] * NM BONE SCAN WHOLEBODY (01/25/2021 12:46 PM CDT) Modality Anatomical Region Laterality Nuclear Medicine Body Specimen Impressions [facility]ULTS - 01/25/2021 4:53 PM CDT Improving and worsening multifocal scattered osseous metastatic disease with mixed response. Approved by CHRISTOPHER BRADLEY D.O. on 01/25/2021 3:05 PM By my electronic signature, I attest that I have personally reviewed the images for this examination and formulated the interpretations and opinions expressed in this report Finalized by Elroy Cunha M.D. on 01/25/2021 4:53 PM. Dictated by CHRISTOPHER BRADLEY D.O. on 01/25/2021 1:19 PM. Narrative [facility] RESULTS - 01/25/2021 4:53 PM CDT BONE SCINTIGRAPHY (WHOLE-BODY) Radiopharmaceutical: 22.4 mCi Tc-99m MDP IV. Clinical Indication: Malignant neoplasm of overlapping sites of both breasts in female, estrogen receptor positive (HCC) [C50.811, C50.812, Z17.0 (ICD-10-CM)] Clinical trial participant [Z00.6 (ICD-10-CM)]. Clinical trial HSC [id number]. Technique: Delayed whole-body scintigrams were obtained. In addition, spot planar images of the calvarium, rib cage and pelvis were obtained in the right and left lateral projections. Comparison: Whole-body bone scan 06/27/2020. Same day CT head and chest. FINDINGS: There is physiologic uptake throughout the axial and appendicular skeleton. There is physiologic uptake by both kidneys with excretion into the urinary bladder. Redemonstration of abnormal foci of increased uptake involving the right frontal calvarium and junction of the left sphenoid bone and pterygoid base. Foci of abnormal uptake are also seen involving the thoracolumbar and sacral spine, bilateral rib cage, pelvic bones, right mid humeral diaphysis and bilateral proximal femur (right greater than left). Some of these lesions demonstrate more intense activity, for example involving the left intertrochanteric region. Other lesions demonstrate improved activity, for example within the spine. Procedure Note Elroy Cunha MD - 01/25/2021 BONE SCINTIGRAPHY (WHOLE-BODY) Radiopharmaceutical: 22.4 mCi Tc-99m MDP IV. Clinical Indication: Malignant neoplasm of overlapping sites of both breasts in female, estrogen receptor positive (HCC) [C50.811, C50.812, Z17.0 (ICD-10-CM)] Clinical trial participant [Z00.6 (ICD-10-CM)]. Clinical trial [facility] [id number]. Technique: Delayed whole-body scintigrams were obtained. In addition, spot planar images of the calvarium, rib cage and pelvis were obtained in the right and left lateral projections. Comparison: Whole-body bone scan 06/27/2020. Same day CT head and chest. FINDINGS: There is physiologic uptake throughout the axial and appendicular skeleton. There is physiologic uptake by both kidneys with excretion into the urinary bladder. Redemonstration of abnormal foci of increased uptake involving the right frontal calvarium and junction of the left sphenoid bone and pterygoid base. Foci of abnormal uptake are also seen involving the thoracolumbar and sacral spine, bilateral rib cage, pelvic bones, right mid humeral diaphysis and bilateral proximal femur (right greater than left). Some of these lesions demonstrate more intense activity, for example involving the left intertrochanteric region. Other lesions demonstrate improved activity, for example within the spine. IMPRESSION Improving and worsening multifocal scattered osseous metastatic disease with mixed response. Approved by CHRISTOPHER BRADLEY D.O. on 01/25/2021 3:05 PM By my electronic signature, I attest that I have personally reviewed the images for this examination and formulated the interpretations and opinions expressed in this report Finalized by Elroy Cunha M.D. on 01/25/2021 4:53 PM. Dictated by CHRISTOPHER BRADLEY D.O. on 01/25/2021 1:19 PM. Performing Organization Address City/State/ZIP Code P chad Number [facility]ULTS * CT CHEST WO CONTRAST (01/25/2021 9:32 AM CDT) Modality Anatomical Region Laterality Computed Tomography Chest Specimen Impressions [facility] RESULTS - 01/25/2021 10:08 AM CDT No significant change in pulmonary, osseous and hepatic metastatic disease since 12 days prior. Finalized by Jordan Tapia M.D. on 01/25/2021 10:08 AM. Dictated by Jordan Tapia M.D. on 01/25/2021 10:01 AM. Narrative [facility] RESULTS - 01/25/2021 10:[address] Chest Clinical Indication: Breast cancer. Lung metastases. Technique: Multiple contiguous axial CT images were obtained through the chest without IV contrast. Post processing coronal and sagittal reconstruction images were made from the axial images. Comparison: January 13, [address] Findings: Axilla, Mediastinum and Leila: There is no axillary, mediastinal or hilar lymphadenopathy. Calcified mediastinal and left hilar granulomas are noted. Heart and Great Vessels: The heart size is normal. There is no pericardial effusion. Lungs and Pleura: Mild postradiation changes are seen in the anterior left lung. There has been no significant change in scattered small pulmonary metastases. The previously measured patient intake representative right lower lobe nodule again measures up to 1.0 cm as seen on series 4, image 53. No pleural effusions. Chest Wall and Osseous Structures: There is no significant change in extensive osseous metastatic disease, mostly sclerotic. Bilateral mastectomy changes are noted. Visualized Upper Abdomen: Hepatic metastatic disease appears similar, incompletely evaluated by noncontrast chest CT. Procedure Note Jordan Tapia MD - 01/25/2021 CT Chest Clinical Indication: Breast cancer. Lung metastases. Technique: Multiple contiguous axial CT images were obtained through the chest without IV contrast. Post processing coronal and sagittal reconstruction images were made from the axial images. Comparison: January 13, [address] Findings: Axilla, Mediastinum and Leila: There is no axillary, mediastinal or hilar lymphadenopathy. Calcified mediastinal and left hilar granulomas are noted. Heart and Great Vessels: The heart size is normal. There is no pericardial effusion. Lungs and Pleura: Mild postradiation changes are seen in the anterior left lung. There has been no significant change in scattered small pulmonary metastases. The previously measured patient intake representative right lower lobe nodule again measures up to 1.0 cm as seen on series 4, image 53. No pleural effusions. Chest Wall and Osseous Structures: There is no significant change in extensive osseous metastatic disease, mostly sclerotic. Bilateral mastectomy changes are noted. Visualized Upper Abdomen: Hepatic metastatic disease appears similar, incompletely evaluated by noncontrast chest CT. IMPRESSION No significant change in pulmonary, osseous and hepatic metastatic disease since 12 days prior. Finalized by Jordan Tapia M.D. on 01/25/2021 10:08 AM. Dictated by Jordan Tapia M.D. on 01/25/2021 10:01 AM. Performing Organization Address City/State/ZIP Code P chad Number [facility] * CT HEAD WO/W CONTRAST (01/25/2021 9:32 AM CDT) Modality Anatomical Region Laterality Computed Tomography Head Specimen Impressions [facility] RESULTS - 01/25/2021 10:17 AM CDT [address]. No CT evidence of intracranial metast atic disease. (MRI is more sensitive for detection of small intracranial lesions). 2. Subtle groundglass attenuation densit y within the right frontal bone. This correlates with the approximate location of the hypermetabolic focus seen on the bone scan from June 27, 2018 suggestive of an osseous metastasis. Additionally, a small sclerotic focus at the junction of the left sphenoid bone and pterygoid base may correlate with the prior hypermetabolic focus projecting just below the level of the left orbit. Attention to these areas on the planned follow-up bone scan is suggested Finalized by Adam Castelan M.D. on 01/25/2021 10:17 AM. Dictated by Adam Castelan M.D. on 01/25/2021 10:02 AM. Narrative [facility] - 01/25/2021 10:[address] head HISTORY: Malignant neoplasm of overlapping sites of both breasts in female, estrogen receptor positive. Clinical trial participant. TECHNIQUE: Multiple contiguous axial images were obtained through the head with and without contrast. MultiHance was injected. FINDINGS: The cerebral and cerebellar volumes are normal. The ventricle sizes are normal. There is no acute intracranial hemorrhage. There is no midline shift, mass effect, or extra-axial fluid collection. There is no enhancing intracranial cerebral or cerebellar parenchymal lesion or mass. Platt-white interfaces are maintained. Basilar cisterns are patent. There is a subtle nearly groundglass attenuation density within the right frontal calvarium measuring up to 1.7 cm transverse (image 18 of series 3). This is slightly less dense than the adjacent calvarium. This correlates with the approximate location of a hypermetabolic focus on the prior bone scan from June 272018. There is slightly asymmetric sclerosis at the junction of the left sphenoid bone and pterygoid base on image 3 of series 3 which could correlate with the prior metabolic focus projecting just below the left orbit on the prior bone scan. Procedure Note Adam Castelan MD - 01/25/2021 CT head HISTORY: Malignant neoplasm of overlapping sites of both breasts in female, estrogen receptor positive. Clinical trial participant. TECHNIQUE: Multiple contiguous axial images were obtained through the head with and without contrast. MultiHance was injected. FINDINGS: The cerebral and cerebellar volumes are normal. The ventricle sizes are normal. There is no acute intracranial hemorrhage. There is no midline shift, mass effect, or extra-axial fluid collection. There is no enhancing intracranial cerebral or cerebellar parenchymal lesion or mass. Platt-white interfaces are maintained. Basilar cisterns are patent. There is a subtle nearly groundglass attenuation density within the right frontal calvarium measuring up to 1.7 cm transverse (image 18 of series 3). This is slightly less dense than the adjacent calvarium. This correlates with the approximate location of a hypermetabolic focus on the prior bone scan from June 272018. There is slightly asymmetric sclerosis at the junction of the left sphenoid bone and pterygoid base on image 3 of series 3 which could correlate with the prior metabolic focus projecting just below the left orbit on the prior bone scan. IMPRESSION 1. No CT evidence of intracranial metast atic disease. (MRI is more sensitive for detection of small intracranial lesions). 2. Subtle groundglass attenuation densit y within the right frontal bone. This correlates with the approximate location of the hypermetabolic focus seen on the bone scan from June 27, 2018 suggestive of an osseous metastasis. Additionally, a small sclerotic focus at the junction of the left sphenoid bone and pterygoid base may correlate with the prior hypermetabolic focus projecting just below the level of the left orbit. Attention to these areas on the planned follow-up bone scan is suggested Finalized by Adam Castelan M.D. on 01/25/2021 10:17 AM. Dictated by Adam Castelan M.D. on 01/25/2021 10:02 AM. Performing Organization Address City/[facility]/ZIP Code P chad Number [facility] * URINALYSIS DIPSTICK (01/25/2021 8:43 AM CDT) Color,UA YELLOW [facility] Turbidity,UA CLEAR CLEAR-CLEAR [facility] Specific 1.010 1.003 - 1.035 [facility] [place]-Urine pH,UA 5.5 5.0 - 8.0 [facility] Protein,UA NEG NEG-NEG [facility] Glucose,UA NEG NEG-NEG [facility] Ketones,UA NEG NEG-NEG [facility] Bilirubin,UA NEG NEG-NEG [facility] Blood,UA NEG NEG-NEG [facility] Urobilinogen,UA NORMAL NORM-NORMAL [facility] Nitrite,UA NEG NEG-NEG [facility] Leukocytes,UA NEG NEG-NEG [facility] Specimen Urine specimen (specimen) - Urine Performing Organization Address [facility] P chad Number [facility] [address] [place] [address] * HIV 1& 2 AG-AB SCRN W REFLEX HIV 1 PCR QUANT (01/25/2021 8:10 AM CDT) [facility] HIV 1 and 2 AG NONREACTIVEComment: Negative NR-NONREACTIVE [facility] LAB AB Screen for HIV-1 Ag and HIV-1/2 specific antibodies. Specimen Blood Performing Organization Address City/[facility]/ZIP Code P chad Number MAIN LAB [address] [place] [address] * TROPONIN-I (01/25/2021 8:10 AM CDT) [facility] Troponin-I 0.00 0.0 - 0.05 NG/ML MAIN LAB Specimen Blood Performing Organization Address [facility]/ZIP [facility] P chad Number MAIN LAB [address] [place] [address] * HEPATITIS C VIRAL LOAD PCR QUANT (01/25/2021 8:10 AM CDT) [facility] Hepatitis C HCV RNA Not Detected <12 IU/mL [facility] L AB Virus, IU/mL Comment: The test method detects HCV viral load using the Ray RealTime assay. Please correlate results with the clinical status of the patient. Specimen Blood Performing Organization Address [facility] Code P chad Number MAIN LAB [address] [place] [address] * HEPATITIS B SURFACE AG (01/25/2021 8:10 AM CDT) Pathologist [facility] HBsAg NONREACTIVEComment: HBs NR-NONREACTIVE [facility] N LAB antigen not detected. Specimen Blood Performing Organization Address [facility]/ZIP Code P chad Number MAIN LAB [address] [place] [address] * PTT (APTT) (01/25/2021 8:10 AM CDT) [facility] APTT 30.9 24.0 - 36.5 SEC MAIN LAB Specimen Blood Performing Organization Address [facility] P chad Number MAIN LAB [address] [place] [address] * PROTIME INR (PT) (01/25/2021 8:10 AM CDT) [facility] INR 1.0 0.8 - 1.2 [facility] LAB Specimen Blood Performing Organization Address [facility] P chad Number MAIN LAB [address] [place] [address] * MAGNESIUM (01/25/2021 8:10 AM CDT) [facility] Magnesium 2.4 1.6 - 2.6 mg/dL [facility] Specimen Blood Performing Organization Address [facility] Code P chad Number [facility] [address] [place] [address] * LDH-LACTATE DEHYDROGENASE (01/25/2021 8:10 AM CDT) [facility] Lactate 383 (H) 100 - 210 U/L [facility] Dehydrogenase Specimen Blood Performing Organization Address [facility] Code P chad Number [facility] [address] [place] [address] * PFT COMPLETE PULM FUNCTION (01/25/2021 7:25 AM CDT) [facility] FVC-Pre 2.14 L [facility] FVC-%Pred-pre 78 % [facility] FEV1-Pre 1.72 L [facility] FEV1-%Pred-Pre 79 % [facility] FEV1/FVC-Pre 80 % [facility] [id number] 68 % [facility] [id number] 1.79 L/sec [facility] [id number]-%Pred-P 87 % [facility] re RVPleth-Pre 1.25 L [facility] RVPleth-%Pred-P 69 % [facility] re TLCPleth-Pre 3.47 L [facility] TLCPleth-%Pred- 77 % [facility] Pre DLCOunc-Pre 13.81 ml/min/mmHg [facility] DLCOunc-%Pred-P 69 % [facility] re DLCOunc-#SD -1.620 ml/min/mmHg [facility] DLCOcor-#SD -1.497 ml/min/mmHg [facility] DLVA-Pred 4.61 ml/min/mmHg/L [facility] DLVA-Pre 4.49 ml/min/mmHg/L [facility] DLVA-%Pred-Pre 97 % [facility] DLVA-SD 0.80 ml/min/mmHg/L [facility] DLVA-LLN 3.01 ml/min/mmHg/L [facility] DLVA-ULN 6.21 ml/min/mmHg/L [facility] DLVA-#SD -0.144 ml/min/mmHg/L [facility] [id number] 76 % [facility] Specimen Narrative Performing Organization Address City/State/ZIP Code P chad Number [facility]IN [address] [place], [place] [address] * 2D + DOPPLER ECHO W/ STRAIN NO CONTRAST (01/20/2021 3:43 PM CDT) Left Ventricle 50.00 46 - 106 mL OTHER OUTSIDE Diastolic LAB Volume Left Ventricle 18.00 14 - 42 mL OTHER OUTSIDE Systolic Volume LAB IVS 0.80 0.6 - 0.9 cm OTHER OUTSIDE LAB LVIDD 3.70 3.8 - 5.2 cm OTHER OUTSIDE LAB LVIDS 2.90 2.2 - 3.5 cm OTHER OUTSIDE LAB PW 1.00 0.6 - 0.9 cm OTHER OUTSIDE LAB TDI lateral e' 0.10 m/s OTHER OUTSIDE LAB TDI Medial e' 0.08 m/s OTHER OUTSIDE LAB LA volume 21.90 22 - 52 mL OTHER OUTSIDE LAB LA size 3.00 2.7 - 3.8 cm OTHER OUTSIDE LAB MV vena 0.10 cm OTHER OUTSIDE contracta LAB AV peak 1.10 m/s OTHER OUTSIDE velocity LAB Sinus 2.50 2.4 - 3.6 cm OTHER OUTSIDE LAB MV vena 0.20 cm OTHER OUTSIDE contracta LAB MV Peak A Laurent 0.70 m/s OTHER OUTSIDE LAB MV Peak E Laurent 0.78 m/s OTHER OUTSIDE PW LAB Proximal aorta 2.60 1.9 - 3.5 cm OTHER OUTSIDE LAB Right Heart 1.31 >1.7 cm OTHER OUTSIDE Systolic Mmode LAB TAPSE Right 2.70 1.9 - 3.5 cm OTHER OUTSIDE Ventricular Mid LAB Diameter Right 3.10 2.5 - 4.1 cm OTHER OUTSIDE Ventricular LAB Basal Diameter Right Atrial 8.84 <18 cm2 OTHER OUTSIDE Area LAB Right Heart 0.06 m/s OTHER OUTSIDE Systolic TDI S' LAB BSA 1.36 m2 OTHER OUTSIDE LAB FS 21.62 28 - 44 % OTHER OUTSIDE LAB EF 36.76 % OTHER OUTSIDE LAB LV mass 97 67 - 162 g OTHER OUTSIDE LAB RWT 0.54 <=0.42 OTHER OUTSIDE LAB E/A ratio 1.11 OTHER OUTSIDE LAB Lateral E/E' 7.80 OTHER OUTSIDE ratio LAB Left Atrium 16.10 16 - 34 OTHER OUTSIDE Index LAB Cardiology [employer] OTHER OUTSIDE Ultrasound LAB Machine Left Ventricle 71 43 - 95 g/m2 OTHER OUTSIDE Mass Index LAB Left Ventricle 37 29 - 61 mL OTHER OUTSIDE Diastolic LAB Volume Index Left Ventricle 13 8 - 24 mL OTHER OUTSIDE Systolic Volume LAB Index Medial E/E' 9.75 OTHER OUTSIDE ratio LAB LEFT VENTRICLE -19 OTHER OUTSIDE GLOBAL LAB LONGITUDINAL STRAIN RA PRESSURE 3 OTHER OUTSIDE LAB KING'S 65 % OTHER OUTSIDE BIPLANE EF LAB Modality Anatomical Region Laterality Ultrasound Specimen Narrative OTHER OUTSIDE LAB - 01/20/2021 4:03 PM CDT 1. Normal left ventricular size and systolic function. Calculated ejection fraction 65% using King's biplane method. Average global longitudinal strain -18.6% using Honorio Epiqsystem. Normal diastolic function. 2. Normal right ventricular size and sys tolic function. 3. Normal left and right atrial sizes. 4. Mild mitral valve regurgitation. 5. Trivial aortic valve regurgitation. 6. No significant pericardial effusion. No prior studies available for comparison. Performing Organization Address City/State/ZIP Code P chad Number OTHER OUTSIDE LAB * CT ABD/PELV W CONTRAST (01/13/2021 8:51 AM CDT) Modality Anatomical Region Laterality Computed Tomography Abdomen, Pelvis Specimen Impressions [facility] - 01/13/2021 11:16 AM CDT CHEST: 1. Multiple bilateral pulmonary metast ases, the majority of which have slightly increased in size. Previously cavitary lesions are stable or decreased in size but appear completely solid now. 2. No thoracic lymphadenopathy. 3. Progressive osseous metastatic dise ase. ABDOMEN AND PELVIS: 1. Increase in size of multifocal hepa tic metastases. 2. No abdominopelvic lymphadenopathy o r ascites. 3. Progressive osseous metastatic dise ase. Finalized by Gela Hernández M.D. on 01/13/2021 11:16 AM. Dictated by Gela Hernández M.D. on 01/13/2021 10:59 AM. Narrative [facility] RESULTS - 01/13/2021 11:[address] CHEST, ABDOMEN AND PELVIS Clinical Indication: Left breast cancer. Technique: Multiple contiguous axial images were obtained through the chest, abdomen and pelvis following the administration of IV contrast material. Portal venous phase of postcontrast imaging was obtained. Post processing coronal and sagittal reconstruction images were made from the axial images. IV contrast: Yes Bowel contrast: None Comparison: CT CAP 10/07/2020. CHEST FINDINGS: Lower Neck: Unremarkable Axilla, Mediastinum and Leila: Unchanged prominent left hilar lymph node. No new or enlarging thoracic lymphadenopathy. Calcified left hilar granulomas. Heart and Great Vessels: Heart size is normal without pericardial effusion. The great vessels are normal in caliber. Airway, Lungs and Pleura: Anterior left upper lobe subpleural reticulation, compatible with post radiation fibrosis. Multiple bilateral pulmonary metastases, overall stable to slightly increased in size since the prior exam. Decrease in size of cavitary nodules, which now appear solid. A reference right lower lobe nodule is now completely solid and measures 1 cm, previously 1 cm (series 6 image 54). A right upper lobe nodule has increased in size (series 6 image 40). No pleural effusion. Chest Wall and Osseous Structures: Prior bilateral mastectomies. Increase in size and sclerosis of multifocal osseous metastatic disease. ABDOMEN AND PELVIS FINDINGS: Liver and Biliary system: Normal sized liver. Increase in size of multifocal hepatic metastases. A reference segment 7 lesion measures 4.4 cm, previously 3.2 cm (series 3 image 12). The major portal veins are patent. No calcified gallstones. Spleen: Unremarkable. Adrenal Glands and Kidneys: Unremarkable adrenal glands. No hydronephrosis. Pancreas and Retroperitoneum: Diffuse pancreatic atrophy. No retroperitoneal lymphadenopathy. Aorta and Major Vessels: Normal caliber abdominal aorta with trace calcific atherosclerotic plaque. Bowel, Mesentery and Peritoneal space: The small and large bowel loops are normal in caliber. Normal appendix. No ascites or mesenteric adenopathy. Pelvis: The bladder is mildly distended. The uterus is present. No pelvic lymphadenopathy. Abdominal wall and Osseous Structures: Progression of sclerotic multifocal osseous metastatic disease. Mild upper curvature of the lumbar spine. Procedure Note Gela Hernández MD - 01/13/2021 CT CHEST, ABDOMEN AND PELVIS Clinical Indication: Left breast cancer. Technique: Multiple contiguous axial images were obtained through the chest, abdomen and pelvis following the administration of IV contrast material. Portal venous phase of postcontrast imaging was obtained. Post processing coronal and sagittal reconstruction images were made from the axial images. IV contrast: Yes Bowel contrast: None Comparison: CT CAP 10/07/2020. CHEST FINDINGS: Lower Neck: Unremarkable Axilla, Mediastinum and Leila: Unchanged prominent left hilar lymph node. No new or enlarging thoracic lymphadenopathy. Calcified left hilar granulomas. Heart and Great Vessels: Heart size is normal without pericardial effusion. The great vessels are normal in caliber. Airway, Lungs and Pleura: Anterior left upper lobe subpleural reticulation, compatible with post radiation fibrosis. Multiple bilateral pulmonary metastases, overall stable to slightly increased in size since the prior exam. Decrease in size of cavitary nodules, which now appear solid. A reference right lower lobe nodule is now completely solid and measures 1 cm, previously 1 cm (series 6 image 54). A right upper lobe nodule has increased in size (series 6 image 40). No pleural effusion. Chest Wall and Osseous Structures: Prior bilateral mastectomies. Increase in size and sclerosis of multifocal osseous metastatic disease. ABDOMEN AND PELVIS FINDINGS: Liver and Biliary system: Normal sized liver. Increase in size of multifocal hepatic metastases. A reference segment 7 lesion measures 4.4 cm, previously 3.2 cm (series 3 image 12). The major portal veins are patent. No calcified gallstones. Spleen: Unremarkable. Adrenal Glands and Kidneys: Unremarkable adrenal glands. No hydronephrosis. Pancreas and Retroperitoneum: Diffuse pancreatic atrophy. No retroperitoneal lymphadenopathy. Aorta and Major Vessels: Normal caliber abdominal aorta with trace calcific atherosclerotic plaque. Bowel, Mesentery and Peritoneal space: The small and large bowel loops are normal in caliber. Normal appendix. No ascites or mesenteric adenopathy. Pelvis: The bladder is mildly distended. The uterus is present. No pelvic lymphadenopathy. Abdominal wall and Osseous Structures: Progression of sclerotic multifocal osseous metastatic disease. Mild upper curvature of the lumbar spine. IMPRESSION CHEST: 1. Multiple bilateral pulmonary metasta ses, the majority of which have slightly increased in size. Previously cavitary lesions are stable or decreased in size but appear completely solid now. 2. No thoracic lymphadenopathy. 3. Progressive osseous metastatic disea se. ABDOMEN AND PELVIS: 1. Increase in size of multifocal hepat ic metastases. 2. No abdominopelvic lymphadenopathy or ascites. 3. Progressive osseous metastatic disea se. Finalized by Gela Hernández M.D. on 01/13/2021 11:16 AM. Dictated by Gela Hernández M.D. on 01/13/2021 10:59 AM. Performing Organization Address City/State/ZIP Code P chad Number [facility] RESULTS * CT CHEST W CONTRAST (01/13/2021 8:51 AM CDT) Modality Anatomical Region Laterality Computed Tomography Chest Specimen Impressions [facility] RESULTS - 01/13/2021 11:16 AM CDT CHEST: 1. Multiple bilateral pulmonary metast ases, the majority of which have slightly increased in size. Previously cavitary lesions are stable or decreased in size but appear completely solid now. 2. No thoracic lymphadenopathy. 3. Progressive osseous metastatic dise ase. ABDOMEN AND PELVIS: 1. Increase in size of multifocal hepa tic metastases. 2. No abdominopelvic lymphadenopathy o r ascites. 3. Progressive osseous metastatic dise ase. Finalized by Gela Hernández M.D. on 01/13/2021 11:16 AM. Dictated by Gela Hernández M.D. on 01/13/2021 10:59 AM. Narrative [facility] RESULTS - 01/13/2021 11:[address] CHEST, ABDOMEN AND PELVIS Clinical Indication: Left breast cancer. Technique: Multiple contiguous axial images were obtained through the chest, abdomen and pelvis following the administration of IV contrast material. Portal venous phase of postcontrast imaging was obtained. Post processing coronal and sagittal reconstruction images were made from the axial images. IV contrast: Yes Bowel contrast: None Comparison: CT CAP 10/07/2020. CHEST FINDINGS: Lower Neck: Unremarkable Axilla, Mediastinum and Leila: Unchanged prominent left hilar lymph node. No new or enlarging thoracic lymphadenopathy. Calcified left hilar granulomas. Heart and Great Vessels: Heart size is normal without pericardial effusion. The great vessels are normal in caliber. Airway, Lungs and Pleura: Anterior left upper lobe subpleural reticulation, compatible with post radiation fibrosis. Multiple bilateral pulmonary metastases, overall stable to slightly increased in size since the prior exam. Decrease in size of cavitary nodules, which now appear solid. A reference right lower lobe nodule is now completely solid and measures 1 cm, previously 1 cm (series 6 image 54). A right upper lobe nodule has increased in size (series 6 image 40). No pleural effusion. Chest Wall and Osseous Structures: Prior bilateral mastectomies. Increase in size and sclerosis of multifocal osseous metastatic disease. ABDOMEN AND PELVIS FINDINGS: Liver and Biliary system: Normal sized liver. Increase in size of multifocal hepatic metastases. A reference segment 7 lesion measures 4.4 cm, previously 3.2 cm (series 3 image 12). The major portal veins are patent. No calcified gallstones. Spleen: Unremarkable. Adrenal Glands and Kidneys: Unremarkable adrenal glands. No hydronephrosis. Pancreas and Retroperitoneum: Diffuse pancreatic atrophy. No retroperitoneal lymphadenopathy. Aorta and Major Vessels: Normal caliber abdominal aorta with trace calcific atherosclerotic plaque. Bowel, Mesentery and Peritoneal space: The small and large bowel loops are normal in caliber. Normal appendix. No ascites or mesenteric adenopathy. Pelvis: The bladder is mildly distended. The uterus is present. No pelvic lymphadenopathy. Abdominal wall and Osseous Structures: Progression of sclerotic multifocal osseous metastatic disease. Mild upper curvature of the lumbar spine. Procedure Note Gela Hernández MD - 01/13/2021 CT CHEST, ABDOMEN AND PELVIS Clinical Indication: Left breast cancer. Technique: Multiple contiguous axial images were obtained through the chest, abdomen and pelvis following the administration of IV contrast material. Portal venous phase of postcontrast imaging was obtained. Post processing coronal and sagittal reconstruction images were made from the axial images. IV contrast: Yes Bowel contrast: None Comparison: CT CAP 10/07/2020. CHEST FINDINGS: Lower Neck: Unremarkable Axilla, Mediastinum and Leila: Unchanged prominent left hilar lymph node. No new or enlarging thoracic lymphadenopathy. Calcified left hilar granulomas. Heart and Great Vessels: Heart size is normal without pericardial effusion. The great vessels are normal in caliber. Airway, Lungs and Pleura: Anterior left upper lobe subpleural reticulation, compatible with post radiation fibrosis. Multiple bilateral pulmonary metastases, overall stable to slightly increased in size since the prior exam. Decrease in size of cavitary nodules, which now appear solid. A reference right lower lobe nodule is now completely solid and measures 1 cm, previously 1 cm (series 6 image 54). A right upper lobe nodule has increased in size (series 6 image 40). No pleural effusion. Chest Wall and Osseous Structures: Prior bilateral mastectomies. Increase in size and sclerosis of multifocal osseous metastatic disease. ABDOMEN AND PELVIS FINDINGS: Liver and Biliary system: Normal sized liver. Increase in size of multifocal hepatic metastases. A reference segment 7 lesion measures 4.4 cm, previously 3.2 cm (series 3 image 12). The major portal veins are patent. No calcified gallstones. Spleen: Unremarkable. Adrenal Glands and Kidneys: Unremarkable adrenal glands. No hydronephrosis. Pancreas and Retroperitoneum: Diffuse pancreatic atrophy. No retroperitoneal lymphadenopathy. Aorta and Major Vessels: Normal caliber abdominal aorta with trace calcific atherosclerotic plaque. Bowel, Mesentery and Peritoneal space: The small and large bowel loops are normal in caliber. Normal appendix. No ascites or mesenteric adenopathy. Pelvis: The bladder is mildly distended. The uterus is present. No pelvic lymphadenopathy. Abdominal wall and Osseous Structures: Progression of sclerotic multifocal osseous metastatic disease. Mild upper curvature of the lumbar spine. IMPRESSION CHEST: 1. Multiple bilateral pulmonary metasta ses, the majority of which have slightly increased in size. Previously cavitary lesions are stable or decreased in size but appear completely solid now. 2. No thoracic lymphadenopathy. 3. Progressive osseous metastatic disea se. ABDOMEN AND PELVIS: 1. Increase in size of multifocal hepat ic metastases. 2. No abdominopelvic lymphadenopathy or ascites. 3. Progressive osseous metastatic disea se. Finalized by Gela Hernández M.D. on 01/13/2021 11:16 AM. Dictated by Gela Hernández M.D. on 01/13/2021 10:59 AM. Performing Organization Address City/State/ZIP Code P chad Number [facility] RES[facility] * POC CREATININE, RAD (01/13/2021 8:22 AM CDT) Creatinine, POC 1.0 0.4 - 1.00 MG/DL [facility] Specimen Performing Organization Address City/State/ZIP Code P chad Number [facility] [address] [place] [address] * ECG-SCAN (01/13/2021 12:00 AM CDT) Narrative 01/13/2021 12:00 AM CDT Ordered by an unspecified provider. * ECG-SCAN (01/13/2021 12:00 AM CDT) Narrative 01/13/2021 12:00 AM CDT Ordered by an unspecified provider. * ECG-SCAN (01/13/2021 12:00 AM CDT) Narrative 01/13/2021 12:00 AM CDT Ordered by an unspecified provider. from Last 3 Months Insurance Type Payer Benefit Subscriber ID Effective Phone Address Plan / Dates Group Indemnity GENERIC COMMERCIAL GENERIC [id number] 2019- [phone] [address]CIAL Present [address] [place] [address] [phone] amily (Home) [place], [place] [address] Advance Directives Patient Corn Miller Explanation Type Date Recorded Advance 06/22/2020 11:43 AM Directive/DPOA Date Inactivated Comments Code Status Date Activated 06/27/2020 2:04 AM Full Code 06/22/2020 1:14 PM Provider has discussed Code Status Yes w/Patient or Family? 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
--- OUTSIDE RECORDS SUMMARY | 2021-02-21 13:32 | XMS REPORT | Encounter Summary ---
Author Author [facility] Organization [facility] Address Unknown Phone Unavailable Care Team Providers Care Forestry Instructor Name Role Phone Evan Sierra MD PCP Ashley Merrill MD Unavailable [phone] Reason for Visit * Reason Comments Cancer Encounter Details Care Team Description Date Type Department Jovany Choi MD [address] [place] [address] Malignant neoplasm of left breast in fem celeste, estrogen receptor positive, unspecified site of breast (HCC) (Primary Dx) 02/07/2021 Office Visit Oncology: [address] [place], [place] [phone] Social History Date Tobacco Use Types Packs/Day [...] at Date Recorded Female 02/14/2021 9:03 AM UNDERWRITER Date Recorded COVID-19 Exposure Response 02/10/2021 12:36 PM UNDERWRITER In the last month, have you been in contact with No / Unsure someone who was confirmed or suspected to have Coronavirus / COVID-19? documented as of this encounter Last Filed Vital Signs Reading Time Taken Comments Vital Sign 117/70 02/07/2021 10:01 AM UNDERWRITER Blood Pressure 98 02/07/2021 10:01 AM UNDERWRITER Pulse 36.5 C (97.7 F) 02/07/2021 10:01 AM UNDERWRITER Temperature 16 02/07/2021 10:01 AM UNDERWRITER Respiratory Rate 100% 02/07/2021 10:01 AM UNDERWRITER Oxygen Saturation - - Inhaled Oxygen Concentration 44.9 kg (99 lb) 02/07/2021 10:01 AM UNDERWRITER Weight 152.4 cm (5') 02/07/2021 10:01 AM UNDERWRITER Height 19.33 02/07/2021 10:01 AM UNDERWRITER Body Mass Index documented in this encounter Functional Status Date of Assessment Functional Status Response 06/13/2020 Does the patient have a hearing impairment: No 06/13/2020 Does the patient have a visual impairment: Yes documented as of this encounter Plan of Treatment Not on filedocumented as of this encounter Visit Diagnoses Diagnosis Malignant neoplasm of left breast in fe male, estrogen receptor positive, unspecified site of breast (HCC) - Primary documented in this encounter Additional Health Concerns Noted Time Assessment 02/07/2021 10:00 AM UNDERWRITER A fall risk assessment has been complet ed for the patient documented as of this encounter Care Teams Start Date End Date Forestry Instructor Relationship Specialty 06/07/20 Evan Sierra MD PCP - General [address] [address] 07/21/20 Segun Merrlil MD [address] [place] [address] documented as of this encounter
--- OUTSIDE RECORDS SUMMARY | 2021-02-21 13:32 | XMS REPORT | Encounter Summary ---
Author Author [facility] Organization [facility] Address Unknown Phone Unavailable Care Team Providers Care Preparer Name Role Phone Evan Sierra MD PCP Ashley Merrill MD Unavailable [phone] Encounter Details Care Team Description Date Type Department 02/17/2021 Travel Social History Date Tobacco Use Types Packs/Day [...] at Date Recorded Female 02/14/2021 9:03 AM HAY BALER Date Recorded COVID-19 Exposure Response 02/17/2021 11:19 AM HAY BALER In the last month, have you been [...] Concerns Noted Time Assessment 02/10/2021 12:36 PM HAY BALER A fall risk assessment has been complet ed for the patient documented as of this encounter Care Teams Start Date End Date Preparer Relationship Specialty 06/07/20 Evan Sierra MD PCP - General Family [address] [facility] [place] [address] 07/21/20 Segun Merrill MD [address] [place] [address] documented as of this encounter
--- OUTSIDE RECORDS SUMMARY | 2021-02-21 13:32 | XMS REPORT | Encounter Summary ---
Author Author [facility] Organization [facility] Address Unknown Phone Unavailable Care Team Providers Care Cycle Counter Name Role Phone Evan Sierra MD PCP Ashley Merrill MD Unavailable [phone] Encounter Details Care Team Description Date Type Department 02/10/2021 Travel Social History Date Tobacco Use Types [...] at Date Recorded Female 02/14/2021 9:03 AM BLUEPRINT TRACER Date Recorded COVID-19 Exposure Response 02/10/2021 12:36 PM BLUEPRINT TRACER In the last month, have you been [...] Concerns Noted Time Assessment 02/10/2021 12:36 PM BLUEPRINT TRACER A fall risk assessment has been complet ed for the patient documented as of this encounter Care Teams Start Date End Date Cycle Counter Relationship Specialty 06/07/20 Evan Sierra MD PCP - General Family [address] [facility] [place] [address] 07/21/20 Segun Merrill MD [address] [place] [address] documented as of this encounter
--- OUTSIDE RECORDS SUMMARY | 2021-02-21 13:32 | XMS REPORT | Encounter Summary ---
Author Author [facility] Organization [facility] Address Unknown Phone Unavailable Care Team Providers Care Diplomatic Courier Name Role Phone Evan Sierra MD PCP Ashley Merrill MD Unavailable [phone] Reason for Visit * Reason Onset Date Comments Surgery 02/07/2021 Encounter Details Care Team Description Date [place] [address] [place] [address] Surgery 02/07/2021 Telephone General Surgery: [facility], [facility] [address] [place] [phone] Social History Date Tobacco Use Types Packs/Day [...] at Date Recorded Female 02/14/2021 9:03 AM JANITOR HELPER Date Recorded COVID-19 Exposure Response 02/07/2021 8:19 AM JANITOR HELPER In the last month, have you been in contact with No / Unsure someone who was confirmed or suspected to have Coronavirus / COVID-19? documented as of this encounter Functional Status Date of Assessment Functional Status Response 06/13/2020 Does the patient have a hearing impairment: No 06/13/2020 Does the patient have a visual impairment: Yes documented as of this encounter Miscellaneous Notes * Telephone Encounter - Priya Hassan RN - 02/07/2021 2:59 PM JANITOR HELPER Pt scheduled for Port Insert with Dr. Cristobal on 02/17/21 at [facility]. Instructed use of anesthesia vs. local only would be determined the morning of s urgery. Instructions given, pt states understanding. TOR HELPER documented in this encounter Plan of Treatment Not on filedocumented as of this encounter Visit Diagnoses Not on filedocumented in this encounter Additional Health Concerns Noted Time Assessment 02/07/2021 10:00 AM JANITOR HELPER A fall risk assessment has been complet ed for the patient documented as of this encounter Care Teams Start Date End Date Diplomatic Courier Relationship Specialty 06/07/20 Evan Sierra MD PCP - General Family [address] [place] [address] 07/21/20 Segun Merrill MD [address] [place] [address] documented as of this encounter
--- OUTSIDE RECORDS SUMMARY | 2021-02-21 13:32 | XMS REPORT | Encounter Summary ---
Author Author [facility] Organization [facility] Address Unknown Phone Unavailable Care Team Providers Care Supervisor Plastic Sheets Name Role Phone Evan Sierra MD PCP Ashley Merrill MD Unavailable Reason for Referral * Radiology Services (Routine) - New Request Diagnoses / Procedures Referred By Contact Referred To Conta ct Specialty Diagnoses Malignant neoplasm of overlapping sites of both breasts in female, estrogen receptor positive (HCC) Procedures [place] [address] [place] [address] Radiology Referral ID Status Reason Start Date Expiration Visits Vi sits Date Requested Authorized [id number] New Request 02/17/2021 02/17/2022 1 1 Y GRADER AND BLENDER Reason for Visit * Auth/Cert Diagnoses / Procedures Referred By Contact Referred To Conta ct Specialty Diagnoses Malignant neoplasm of overlapping sites of both breasts in female, estrogen receptor positive (HCC) Malignant neoplasm of overlapping sites of both breasts in female, estrogen receptor positive (HCC) [C50.811, C50.812, Z17.0] Procedures UT INSJ TUNNELED CTR VAD W/SUBQ PORT AGE 5 YR/> UT FLUORO CENTRAL VENOUS ACCESS DEV PLACEMENT placement of port-a-cath with fluoroscopy Referral ID Status Reason Start Date Expiration Visits Vi sits Date Requested Authorized [id number] 1 1 Encounter Details Care Team Description Date [place] [address] [place] [address] Arrived 02/17/2021 Hospital Imaging: [facility], Encounter [facility] [address] [place] [phone] Social History Date Tobacco Use Types Packs/Day [...] at Date Recorded Female 02/14/2021 9:03 AM HONEY GRADER AND BLENDER Date Recorded COVID-19 Exposure Response 02/17/2021 11:19 AM HONEY GRADER AND BLENDER In the last month, have you been [...] Routine 02/17/2021 Malignant neoplasm of 1:58 PM HONEY GRADER AND BLENDER overlapping sites of both breasts in female, estrogen receptor positive (HCC) documented in this encounter Results * FLUORO MOBILE IN OR (02/17/2021 1:58 PM HONEY GRADER AND BLENDER) Modality Anatomical Region Laterality Radio Fluoroscopy Specimen Narrative [facility] - 02/17/2021 2:04 PM HONEY GRADER AND BLENDER This order has been auto finalized and does not contain a result. Performing Organization Address City/State/ZIP Code P chad Number [facility] documented in this encounter Visit Diagnoses Diagnosis Malignant neoplasm of overlapping sites of both breasts in female, estrogen receptor positive (HCC) documented in this encounter Additional Health Concerns Noted Time Assessment 02/10/2021 12:36 PM HONEY GRADER AND BLENDER A fall risk assessment has been complet ed for the patient documented as of this encounter Care Teams Start Date End Date Supervisor Plastic Sheets Relationship Specialty 06/07/20 Evan Sierra MD PCP - General Family [address] [facility] [place] [address] 07/21/20 Segun Merrill MD [address] [place] [address] documented as of this encounter
--- OUTSIDE RECORDS SUMMARY | 2021-02-21 13:32 | XMS REPORT | Encounter Summary ---
Author Author [facility] Organization [facility] Address Unknown Phone Unavailable Care Team Providers Care Plastic Parts Fabricator Trimmer Name Role Phone Evan Sierra MD PCP Ashley Merrill MD Unavailable [phone] Reason for Visit * Reason Onset Date Comments Palliative Care 02/06/2021 Encounter Details Care Team Description Date Type Department Ashley Merrill MD [address] [place] [address] Palliative Care 02/06/2021 Telephone Palliative Care: We [address] [place] [phone] Social History Date Tobacco Use Types Packs/Day [...] at Date Recorded Female 02/14/2021 9:03 AM FACILITIES SPECIALIST Date Recorded COVID-19 Exposure Response 01/25/2021 7:12 [...] impairment: Yes documented as of this encounter Ordered Prescriptions Start Date End Date Prescription Sig Dispensed Refills 02/06/2021 amitriptyline (ELAVIL) 25 Take one 30 tablet 1 mg tabletIndications: tablet by neuropathic pain mouth at bedtime daily. Indications: neuropathic pain documented in this encounter Miscellaneous Notes * Telephone Encounter - Eusebia Olsen RN - 02/06/2021 11:21 AM FACILITIES SPECIALIST Discussed with Amy that Dr Merrill would like to try Amitriptyline 25 mg at hs for her nerve pain. The dose might need increased to be effective but this is the starting dose. Educated on the medicaition. Amy is intereste d in trying it and Rx sent to her local pharmacy. Amy sees Dr Choi's office tomorrow and will ask them to try to coordinate futu re returns to Fridays so she can see Dr Merrill at the same time. LITIES SPECIALIST documented in this encounter Plan of Treatment Not on filedocumented as of this encounter Visit Diagnoses Not on filedocumented in this encounter Additional Health Concerns Noted Time Assessment 01/13/2021 11:23 AM CDT A fall risk assessment has been complet ed for the patient documented as of this encounter Care Teams Start Date End Date Plastic Parts Fabricator Trimmer Relationship Specialty 06/07/20 Evan Sierra MD PCP - General Family [facility] [place] [address] 07/21/20 Segun Merrill MD [address] [place] [address] documented as of this encounter
--- OUTSIDE RECORDS SUMMARY | 2021-02-21 13:32 | XMS REPORT | Encounter Summary ---
Author Author [facility] Organization [facility] Address Unknown Phone Unavailable Care Team Providers Care Cash Sales Audit Clerk Name Role Phone Evan Sierra MD PCP Ashley Merrill MD Unavailable [phone] Reason for Visit * Reason Onset Date Comments Palliative Care 02/03/2021 Encounter Details Care Team Description Date Type Department Ashley Merrill MD [address] [place] [address] Palliative Care 02/03/2021 Telephone Palliative Care: We [address] [place] [address] Social History Date Tobacco Use Types Packs/Day [...] at Date Recorded Female 02/14/2021 9:03 AM CIRCULAR SAWYER STONE Date Recorded COVID-19 Exposure Response 01/25/2021 7:12 [...] Telephone Encounter - Eusebia Olsen RN - 02/03/2021 2:57 PM CDT Amy called to say she wasn't able to tolerate the duloxetine. She took it for three days and stated it caused withdrawal like symptoms of aggegation, insomnia and skin issues with blisters that eventually scabbed over. She stopped taking it. She is "making it" with the heating pad, MS Contin 15 mg tid and prn Endoc et. She expects new treatment appointments to be scheduled week after next. Th ey are waiting for her lab counts to improve. She states she can make do with t hings till then. I told her I'd let Dr Crook know and call back if Dr Merrill had other recommendations. documented in this encounter Plan of Treatment Not on filedocumented as of this encounter Visit Diagnoses Not on filedocumented in this encounter Discontinued Medications Start Date End Date Medication Sig Discontinue Reason 01/06/2021 02/03/2021 duloxetine (CINDY) Take one 30 mg capsule capsule by mouth daily. documented as of this encounter Additional Health Concerns Noted Time Assessment 01/13/2021 11:23 AM CDT A fall risk assessment has been complet ed for the patient documented as of this encounter Care Teams Start Date End Date Cash Sales Audit Clerk Relationship Specialty 06/07/20 Evan Sierra MD PCP - General Family [address] [place] [address] 07/21/20 Segun Merrill MD [address] [place] [address] documented as of this encounter
--- OUTSIDE RECORDS SUMMARY | 2021-02-21 13:32 | XMS REPORT | Encounter Summary ---
Author Author [facility] Organization [facility] Address Unknown Phone Unavailable Care Team Providers Care Computer Art Instructor Name Role Phone Evan Sierra MD PCP Ashley Merrill MD Unavailable [phone] Reason for Visit * Reason Onset Date Comments Palliative Care 01/26/2021 Encounter Details Care Team Description Date Type Department Ashley Merrill MD [address] [place] [address] Palliative Care 01/26/2021 Telephone Palliative Care: We [address] [place] [phone] Social History Date Tobacco Use Types Packs/Day [...] at Date Recorded Female 02/14/2021 9:03 AM SDV PILOT/NAVIGATOR/DDS OPERATOR Date Recorded COVID-19 Exposure Response 01/25/2021 7:12 [...] Telephone Encounter - Eusebia Olsen RN - 01/26/2021 12:49 PM CDT Left message for patient stating we were alerted of change in treatment plans an d appointment schedules. MSSR and Endocet refills sent to local [facility]. We will plan to attempt to corroodinate a return appt with her upcoming Cancer Cent er appts. documented in this encounter Plan of Treatment Not on filedocumented as of this encounter Visit Diagnoses Not on filedocumented in this encounter Additional Health Concerns Noted Time Assessment 01/13/2021 11:23 AM CDT A fall risk assessment has been complet ed for the patient documented as of this encounter Care Teams Start Date End Date Computer Art Instructor Relationship Specialty 06/07/20 Evan Sierra MD PCP - General Family [address] [place] [address], [place] [address] 07/21/20 Segun Merrill MD [address] [place] [address] documented as of this encounter
--- OUTSIDE RECORDS SUMMARY | 2021-02-21 13:32 | XMS REPORT | Encounter Summary ---
Author Author [facility] Organization [facility] Address Unknown Phone Unavailable Care Team Providers Care Supervisor [employer]ision Optical Elements Name Role Phone Evan Sierra MD PCP Ashley Merrill MD Unavailable [phone] Encounter Details Care Team Description Date Type Department Yessica Lu, PHARMD 02/04/2021 Orders Only The [address] [phone] Social History Date Tobacco Use Types Packs/Day [...] at Date Recorded Female 02/14/2021 9:03 AM YOUTH LEADER Date Recorded COVID-19 Exposure Response 01/25/2021 7:12 [...] Care Teams Start Date End Date Supervisor [employer] Optical [employer] Relationship Specialty 06/07/20 Evan Sierra MD PCP - [address] [place] [address] 07/21/20 Segun Merrill MD [address] [place] [address] documented as of this encounter
--- OUTSIDE RECORDS SUMMARY | 2021-02-21 13:32 | XMS REPORT | Encounter Summary ---
Author Author [facility] Organization [facility] Address Unknown Phone Unavailable Care Team Providers Care Family Coach Name Role Phone Evan Sierra MD PCP Ashley Merrill MD Unavailable [phone] Reason for Visit * Auth/Cert Diagnoses / Procedures Referred By Contact Referred To Conta ct Specialty Diagnoses Malignant neoplasm of overlapping sites of both breasts in female, estrogen receptor positive (HCC) Malignant neoplasm of overlapping sites of both breasts in female, estrogen receptor positive (HCC) [C50.811, C50.812, Z17.0] Procedures VA INSJ TUNNELED CTR VAD W/SUBQ PORT AGE 5 YR/> VA FLUORO CENTRAL VENOUS ACCESS DEV PLACEMENT placement of port-a-cath with fluoroscopy Referral ID Status Reason Start Date Expiration Visits Vi sits Date Requested Authorized [id number] 1 1 Encounter Details Care Team Description Date [place] [address] [place] [address] placement of port-a-cath with fluoroscop y 02/17/2021 Surgery Operating Room: [facility] [address] [place] [address] Surgery Details Trauma Case? Date/Time Status Location OR Service Patient Class Case Class Case Type 02/17/21 Posted ASC ICC2 OR ASC ICC RM Surgery Outpatient El ective - 1:00 PM 7 General Surgery Treating conditions that are not life or limb threatenin g Panel 1 Procedure LRB Anes Op Region Wound Class Com ments placement of port-a-cath Right Monitored Chest C lean with fluoroscopy Anesthesia Care (MAC) Panel Surgeon Surgeon Role Service 1 Jemal Cristobal Jr., MD Primary Surgery Gene ral Social History Date Tobacco Use Types Packs/Day [...] at Date Recorded Female 02/14/2021 9:03 AM EC TEACHER Date Recorded COVID-19 Exposure Response 02/17/2021 11:19 AM EC TEACHER In the last month, have you been in contact with No / Unsure someone who was confirmed or suspected to have Coronavirus / COVID-19? documented as of this encounter Last Filed Vital Signs Reading Time Taken Comments Vital Sign 141/77 02/17/2021 12:21 PM EC TEACHER Blood Pressure 74 02/17/2021 12:21 PM EC TEACHER Pulse 36.9 C (98.4 F) 02/17/2021 12:21 PM EC TEACHER Temperature - - Respiratory Rate 100% 02/17/2021 12:21 PM EC TEACHER Oxygen Saturation - - Inhaled Oxygen Concentration 42.6 kg (94 lb) 02/17/2021 12:21 PM EC TEACHER Weight 154.9 cm (5' 1") 02/17/2021 12:21 PM EC TEACHER Height 17.76 02/17/2021 12:21 PM EC TEACHER Body Mass Index documented in this encounter Functional Status Date of Assessment Functional Status Response 06/13/2020 Does the patient have a hearing impairment: No 06/13/2020 Does the patient have a visual impairment: Yes documented as of this encounter Ordered Prescriptions Start Date End Date Prescription Sig Dispensed Refills 02/17/2021 HYDROcodone/acetaminophen Take one 10 tablet 0 (NORCO) 5/325 mg tablet tablet by mouth every 4 hours as needed for Pain documented in this encounter H&P Notes * Jemal Cristobal Jr., MD - 02/17/2021 11:19 AM EC TEACHER Images from the original note were not included. Reason for Visit: Cancer Amytanya Luer is a 60 y.o. female. Cancer Staging Malignant neoplasm of overlapping sites of both breasts in female, estrogen rece ptor positive (HCC) Staging form: Breast, AJCC 8th Edition - Clinical stage from 07/12/2020: Stage IV (cT1c, cN1, pM1, ER+, VA+, HER2-) - Si gned by Ratna Ashraf APRN-DRYER OPERATOR on 07/12/2020 History of Present Illness Amy Lobato is a 60-year-old postmenopausal female who was diagnosed with a lef t breast cancer in October 2017 and received treatment in [place], [place]. She u nderwent bilateral mastectomy and left sided sentinel lymph node biopsy on 2017. Tumor size was 1.3 cm, 1 out of 7 lymph nodes was positive. ER was 95%, VA 0%, HER-2 1+ by IHC. MammaPrint score was high risk. She underwent adjuvant chemotherapy with 4 cycles of TC. She was then started on anastrozole which she is currently taking regularly. She has been having low back pain for a year and has been using BC powder. Three weeks ago, pain worsened. An MRI of the lumbar spine was performed on 06/03/2020. This showed numerous T1 hypointense lesions with corresponding increased signal, seen throughout the lower thoracic spine and lumbar spine and some in the sac rum, consistent with metastatic disease. There was a posterior soft tissue exte nsion of the metastasis at the level of T12. No other imaging has been performe d. She is currently taking anastrozole and hfhk-obw-lgsgdye pain medicines and tramadol with inadequate pain control. She has recently moved to [facility], and wants to receive therapy here. No family history of breast cancer. Brother had colon cancer. Another brother had neuroendocrine carcinoma. She underwent a CT-guided biopsy of left iliac bone. This showed metastatic car cinoma consistent with mammary origin. ER was 16%, VA 0%, HER-2 1+ by IHC. Bon e scan showed findings compatible with multifocal scattered osseous metastatic d isease. CT of the chest abdomen and pelvis showed multifocal focal osseous meta stasis. Also multifocal hepatic metastatic disease. Liver biopsy from 07/07/2020 showed metastatic carcinoma consistent with breast primary ER 99%, VA 0%, HER2 1 + IHC, Ki67 42%. Faslodex monthly (07/15/2020) Verzenio 150mg BID (07/16/2020). CT CAP 01/13/2021 showed disease progression. PRESENT THERAPY: Xgeva every 4 weeks. Enhertu start 02/07/2021. Ms. Lobato is here today for cycle #1 of Enhertu. Review of Systems Constitutional: Positive for fatigue. Gastrointestinal: Positive for constipation. Psychiatric/Behavioral: Positive for sleep disturbance. Allergies Allergen Reactions Duloxetine BLISTERS Reported "withdrawl symptoms of agitation, insomnia and development of bli sters. Objective: amitriptyline (ELAVIL) 25 mg tablet Take one tablet by mouth at bedtime kary jacobo Indications: neuropathic pain loperamide (IMODIUM A-D) 2 mg capsule Take 2 capsules by mouth after first l oose/frequent bowel movement, then 1 capsule every 2 hours (2 capsules every 4 h ours at night) until 12 hours have passed without a bowel movement. morphine SR (MS CONTIN) 15 mg tablet Take one tablet by mouth every 8 hours ondansetron (ZOFRAN) 8 mg tablet Take one tablet by mouth every 8 hours as n eeded for Nausea or Vomiting. oxyCODONE/acetaminophen (ENDOCET) 5/325 mg tablet Take one tablet to two tab lets by mouth every 3 hours as needed for Pain senna/docusate (SENOKOT-S) 8.6/50 mg tablet Take 1-2 tablets by mouth twice daily as needed (constipation). traZODone (DESYREL) 50 mg tablet Take one tablet by mouth at bedtime as need ed for Sleep. If not helpful after 2 weeks, can increase to 100 mg (2 pills) nica ry night at bedtime. Vitals: 02/07/21 1000 02/07/21 1001 BP: 117/70 BP Source: Arm, Right Upper Patient Position: Sitting Pulse: 98 Resp: 16 Temp: 36.5 C (97.7 F) TempSrc: Temporal SpO2: 100% Weight: 44.9 kg (99 lb) Height: 152.4 cm (60") PainSc: Ten Body mass index is 19.33 kg/m. Pain Score: Ten Pain Loc: Leg Fatigue Scale: 0-None Pain Addressed: Prescription provided for pain management Patient Evaluated for a Clinical Trial: No treatment clinical trial available fo r this patient. Eastern Cooperative Oncology Group performance status is 0, Fully active, able t o carry on all pre-disease performance without restriction.. Physical Exam Vitals and nursing note reviewed. Pulmonary: Effort: No respiratory distress. Chest: Breasts: Right: No swelling, bleeding, mass, skin change or tenderness. Left: No swelling, bleeding, mass, skin change or tenderness. Lymphadenopathy: Cervical: No cervical adenopathy. LABS/RADIOLOGY: CBC w diff Lab Results Component Value Date/Time WBC 6.0 02/07/2021 08:55 AM RBC 3.19 (L) 02/07/2021 08:55 AM HGB 11.2 (L) 02/07/2021 08:55 AM HCT 32.3 (L) 02/07/2021 08:55 AM MCV 101.0 (H) 02/07/2021 08:55 AM MCH 34.9 (H) 02/07/2021 08:55 AM MCHC 34.6 02/07/2021 08:55 AM RDW 14.2 02/07/2021 08:55 AM PLTCT 373 02/07/2021 08:55 AM MPV 6.3 (L) 02/07/2021 08:55 AM Lab Results Component Value Date/Time NEUT 73 02/07/2021 08:55 AM ANC 4.40 02/07/2021 08:55 AM LYMA 12 (L) 02/07/2021 08:55 AM ALC 0.70 (L) 02/07/2021 08:55 AM SANDEEP 14 (H) 02/07/2021 08:55 AM AMC 0.90 (H) 02/07/2021 08:55 AM EOSA 0 02/07/2021 08:55 AM AEC 0.00 02/07/2021 08:55 AM BASA 1 02/07/2021 08:55 AM ABC 0.00 02/07/2021 08:55 AM Comprehensive Metabolic Profile Lab Results Component Value Date/Time NA 135 (L) 02/07/2021 08:55 AM K 4.4 02/07/2021 08:55 AM CL 98 02/07/2021 08:55 AM CO2 27 02/07/2021 08:55 AM GAP 10 02/07/2021 08:55 AM BUN 14 02/07/2021 08:55 AM CR 0.64 02/07/2021 08:55 AM GLU 93 02/07/2021 08:55 AM GLU 102 (H) 08/19/2020 01:49 PM Lab Results Component Value Date/Time CA 9.4 02/07/2021 08:55 AM ALBUMIN 4.1 02/07/2021 08:55 AM TOTPROT 7.1 02/07/2021 08:55 AM ALKPHOS 376 (H) 02/07/2021 08:55 AM AST 124 (H) 02/07/2021 08:55 AM ALT 90 (H) 02/07/2021 08:55 AM TOTBILI 0.6 02/07/2021 08:55 AM GFR >60 02/07/2021 08:55 AM GFRAA >60 02/07/2021 08:55 AM None of the abnormal lab results from today are clinically significant. CT CAP 10/07/2020: CHEST: 1. Multiple bilateral pulmonary metastases, the majority of which have slightl y decreased in size. A few have developed central cavitation and increased in si ze. 2. No thoracic lymphadenopathy. 3. Progressive sclerosis of multifocal osseous metastatic disease, which may r epresent treatment response. Consider bone scan for further evaluation. ABDOMEN AND PELVIS: 1. Multiple hypoenhancing liver metastases, some of which have decreased in si ze while others have increased in size. 2. No abdominopelvic lymphadenopathy or ascites. 3. Progressive sclerosis of multifocal osseous metastatic disease, which may r epresent treatment response. Consider bone scan for further evaluation. Bone scan 06/27/2020: Findings compatible with multifocal scattered osseous metastatic disease. CT CAP 01/13/2021: 1. Multiple bilateral pulmonary metastases, the majority of which have slightl y increased in size. Previously cavitary lesions are stable or decreased in size but appear completely solid now. 2. No thoracic lymphadenopathy. 3. Progressive osseous metastatic disease. ABDOMEN AND PELVIS: 1. Increase in size of multifocal hepatic metastases. 2. No abdominopelvic lymphadenopathy or ascites. 3. Progressive osseous metastatic disease. Bone scan 01/25/2021: Improving and worsening multifocal scattered osseous metastatic disease with mix ed response. CT C 01/25/2021: No significant change in pulmonary, osseous and hepatic metastatic disease since [address] head 01/25/2021: 1. No CT evidence of intracranial metastatic disease. (MRI is more sensitive for detection of small intracranial lesions). 2. Subtle groundglass attenuation density within the right frontal bone. This co rrelates with the approximate location of the hypermetabolic focus seen on the b one scan from June 27, 2018 suggestive of an osseous metastasis. Additionally, a small sclerotic focus at the junction of the left sphenoid bone and pterygoid base may correlate with the prior hypermetabolic focus projecting just below the level of the left orbit. Attention to these areas on the planned follow-up bone scan is suggested ECHO 01/20/2021: EF 65% Assessment and Plan: 1. Amy is a 60-year-old postmenopausal female with history of node positive br east cancer in 2018. Status post chemotherapy and adjuvant therapy. She progre ssed on Arimidex with within 2 years of diagnosis. 2. Recurrent metastatic disease to the liver as well as widespread osseous metas tatic disease. Biopsy of left iliac bone was positive for metastatic carcinoma. However, estrogen expression was very low, at 16%. Also HER-2 negative. Liver biopsy from 07/07/2020 showed metastatic carcinoma consistent with breast primary ER 99%, VA 0%, HER2 1+ IHC, Ki67 42%. We recommended Faslodex and Verzenio; sta rted 07/15/2020. 3. Results of scans from 01/13/2021 explained. She was told that there was progr ession and we will stop Faslodex and Verzenio. We are recommending Enhertu every 3 weeks. She will start today. Repeat scan in 3 months. 4. 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 5. Bone mets; she will continue Xgeva every 4 weeks. She was told to take Calciu m and Vitamin D. 6. Pain; continue MS Contin and oxycodone. She will continue to follow with pall iative care. 7. Diarrhea; continue Imodium as needed. 8. RTC in 3 weeks with labs and treatment. Risks vs benefits of port placement were discussed in detail including possible infection and pneumothorax. She wishes to proceed. TEACHER documented in this encounter OR Notes * Operative Report (Direct Entry) - Jemal Cristobal Jr., MD - 02/17/2021 1:00 PM EC TEACHER OPERATIVE REPORT Name: Amy Lobato is a 60 y.o. female : 1960 DATE OF OPERATION: 02/17/2021 Surgeon(s) and Role: * Jemal Cristobal Jr., MD - Primary Preoperative Diagnosis: Malignant neoplasm of overlapping sites of both breasts in female, estrogen rece ptor positive (HCC) [C50.811, C50.812, Z17.0] Post-op Diagnosis * Malignant neoplasm of overlapping sites of both breasts in female, estrogen receptor positive (HCC) [C50.811, C50.812, Z17.0] Procedure(s) (LRB): placement of port-a-cath with fluoroscopy (Right) Description and Findings of Operative Procedure: The patient was taken to the op erating room, placed in a supine position on the operating table. After adequat e IV sedation was given, the area of the chest and neck was prepped and draped i n a standard surgical fashion. A 3 cm transverse incision was made in the right upper chest. Skin and soft tissue were dissected through using electrocautery. Dissection in the deltopectoral groove revealed the cephalic vein. This was i solated using 3-0 silk ties. A venotomy was made with blunt blade scalpel and a n 8-Hungarian catheter was threaded through the venotomy into the superior vena cav a under fluoroscopic guidance. The catheter was cut at 16 cm and secured to the port. The hub was secured. A pocket was created above the pectoralis fascia a nd the port was sewn in the pocket using multiple interrupted 2-0 prolene suture s. The port was accessed through the skin and noted to aspirate easily. It was then packed with heparinized saline. The wound was closed in layers using inte rrupted 3-0 Vicryl suture and 4-0 Monocryl in subcuticular fashion. The wound w as dressed using sterile dressings. Sponge, instrument, and needle counts were correct at the end of the case. The patient tolerated the procedure well and wa s transported to the recovery room in good condition. Estimated Blood Loss: No blood loss documented. Specimen(s) Removed/Disposition: * No specimens in log * Attestation: I performed this procedure without the involvement of a resident. Complications: None Implants: None Drains: None Disposition: PACU - stable Jemal Cristobal Jr., MD Pager [phone] TEACHER documented in this encounter Miscellaneous Notes * Pre-Anesthesia Patient Instructions - Mignon Diaz RN - 02/10/2021 12:39 PM EC TEACHER Amy, You are scheduled for your procedure on: 02/17/2021 at 1:00 PM with arrival santos e of 11:30 am With Jemal Beltran Jr., MD Please keep in mind that our surgery schedule is fluid, and affected by multi ple factors, so it is possible that your procedure time could change. We will m loren every effort to maintain your original procedure time, but there are no guar antees. Thank you for your patience and understanding! Please note that the Ambulatory Surgery Center doors open at 6am. If you arriv e earlier, you will need to wait in your vehicle. OUR ADDRESS IS [address] [place] [address] TAKE [facility] TO [address] [place] [address] AND TURN LEFT. TAKE A LEFT AT THE FIRST OR SECOND ENTRANCE AND FOLLOW SIGNAGE TO THE [facility] ([address] [place] [address]). To Reschedule please call your surgeon's office For Questions call: PAT Phone #s: [phone] ONE WEEK PRIOR TO SURGERY: UNLESS INSTRUCTED OTHERWISE, PLEASE HOLD ALL VITAMINS, SUPPLEMENTS, AND NSAIDS ( ASPIRIN, IBUPROFEN, ALEVE, CELEBREX). Below are the instructions for your upcoming procedure. PLEASE HAVE NOTHING TO EAT AFTER MIDNIGHT PRIOR TO YOUR PROCEDURE AVOID SMOKING GUM CANDY AND MINTS AFTER MIDNIGHT PRIOR TO YOUR PROCEDURE YOU MAY HAVE WATER ONLY UNTIL 9:00 AM BATHE, BRUSH TEETH AND GARGLE THE MORNING OF SURGERY, NO MAKEUP, PERFUMES OR LOT ION WEAR CASUAL, COMFORTABLE, LOOSE FITTING CLOTHING THAT ARE EASY TO GET ON AND OFF TAKE OFF ANY JEWELRY, TAKE OUT ANY PIERCINGS, AND LEAVE ALL OTHER VALUABLES AT H OME IF YOU WEAR GLASSES OR CONTACTS PLEASE BRING A CASE FOR THEIR SAFEKEEPING YOU WILL NEED A RESPONSIBLE ADULT (OVER THE AGE OF 18) TO BRING YOU TO YOUR PROC EDURE, DRIVE YOU HOME, AND STAY WITH YOU UNTIL THE NEXT DAY. NO UBERS, TAXIS OR BUSES ARE ALLOWED -- If you do not have a responsible adult ambulette driver we will be u nable to do the procedure. IF YOU'RE HAVING ORTHOPEDIC SURGERY, PLEASE REMOVE NAIL SAMI FROM THE EXTREMIT Y THAT IS GOING TO BE WORKED ON BRING CRUTCHES OR RESPIRATORY INHALERS IF APPLICABLE PLEASE BRING YOUR CELL PHONE WITH YOU TO YOUR PROCEDURE. BRING INSURANCE CARD AND DRIVERS LICENSE, AND BE PREPARED TO PAY ANY COPAY/DEDUC TIBLE ON ARRIVAL WHEN CHECKING IN IF YOU ARE FULLY VACCINATED FOR COVID, PLEASE BRING YOUR VACCINATION CARD FOR [facility] ROXY. Other instructions Notify your surgeon if: There is a possibility that you are You become ill with a cough, fever, sore throat, nausea, vomiting or flu-like sy mptoms You have any open wounds/sores that are red, painful, draining, or are new since you last saw the doctor You need to cancel your procedure KEEPING YOU SAFE THE HEALTH AND SAFETY OF OUR PATIENTS, STAFF AND PHYSICIANS IS OUR TOP PRIORI TY. TO REDUCE THE RISK OF POSSIBLE COVID-19 EXPOSURE WE ARE TAKING THE PROPER VA ECAUTIONS LISTED BELOW YOU ARE PERMITTED 1 VISITOR IN THE WAITING AREA. ALL PATIENTS AND THEIR RESPONSI BLE ADULT (IF ENTERING THE FACILITY) WILL BE SCREENED ON THE DATE OF SERVICE UPO N ARRIVAL AND BE REQUIRED TO WEAR A MASK WHILE INSIDE THE FACILITY. ALL PATIENTS MUST SELF QUARANTINE AFTER COVID-19 TESTING/SCREENING UNTIL THEIR S CHEDULED PROCEDURE. NOTIFY YOUR SURGEON IF YOU HAVE ANY SIGNIFICANT HEALTH STATUS CHANGES OR SHOULD YOU BECOME ILL PRIOR TO SURGERY WITH FEVER (TEMP 100.0 FAHRENHEIT OR GREATER) AN D/OR COUGH, DIFFICULTY BREATHING, CHILLS, MUSCLE PAIN, HEADACHE, SORE THROAT OR NEW ONSET LOSS OF TASTE OR SMELL, OR NEW SUSPECTED EXPOSURE TO COVID-19. COVID-19 TESTING PLEASE SEND A COPY OF YOUR COVID TEST RESULTS TO [email or web address] OR FAX TO NO LATER THAN 02/16/21 OR YOUR PROCEDURE COULD BE CANCELLED. Pre-Admissions Testing (PAT) [facility], [facility] [address] [place] [address] (Main) PAT Phone #s: [phone] (PAT) [email or web address] TEACHER documented in this encounter Plan of Treatment Order Schedule Name Type Priority Associated Diag noses ONE TIME for 1 Occurrences starting 01/30 until 02/17/2021 POC GLUCOSE Point of Care Routine Testing documented as of this encounter Procedures Comments Procedure Name Priority Date/Time Associated Diag nosis INSERTION TUNNELED 02/17/2021 Malignant neoplasm of CENTRAL VENOUS ACCESS 1:36 PM EC TEACHER overlapping sit es of both DEVICE WITH SUBCUTANEOUS breasts in female, PORT - AGE 4 YEARS AND estrogen receptor OVER positive (HCC) ECG-SCAN 02/17/2021 12:00 AM EC TEACHER documented in this encounter Results * ECG-SCAN (02/17/2021 12:00 AM EC TEACHER) Narrative 02/17/2021 12:00 AM EC TEACHER Ordered by an unspecified provider. documented in this encounter Visit Diagnoses Diagnosis Malignant neoplasm of overlapping sites of both breasts in female, estrogen receptor positive (HCC) - Primary Malignant neoplasm of overlapping sites of both breasts in female, estrogen receptor positive (HCC) documented in this encounter Administered Medications Action Date Dose Rate Site Medication Order [facility] 02/17/2021 1:45 PM EC TEACHER 5 mL Chest, R ight bupivacaine 0.25%/EPINEPHrine 1:200,000 Given injection INTRA-PROCEDURE MED, Starting on Sat02/17/21 at 1345, Until Discontinued, Intra-op 02/17/2021 1:58 PM EC TEACHER 500 Units heparin lock flush PF syringe Given INTRA-PROCEDURE MED, Starting on Sat02/17/21 at 1358, Until Discontinued, Intra-op 02/17/2021 1:45 PM EC TEACHER 5 mL Chest, R ight lidocaine 1%/EPINEPHrine 1:100,000 Given injection INTRA-PROCEDURE MED, Starting on Sat02/17/21 at 1345, Until Discontinued, Intra-op 02/17/2021 1:47 PM EC TEACHER 500 mL Chest, R ight sodium chloride 0.9% irrigation bottle Given INTRA-PROCEDURE MED, Starting on Sat02/17/21 at 1347, Until Discontinued, Intra-op Action Date Dose Rate Site Medication Order [facility] 02/17/2021 12:45 PM EC TEACHER 500 mg acetaminophen (TYLENOL EXTRA STRENGTH) Given tablet 500 mg 500 mg, Oral, ONCE, 1 dose, On Sat02/17/21 at 1330, To be given pre-op with a sip of water immediately upon arrival to bay (>30 minutes prior to scheduled surgery time). TOTAL ACETAMINOPHEN DOSE NOT TO EXCEED 4 GM DAILY., Pre-Op 02/17/2021 12:47 PM EC TEACHER 20 mL/hr lactated ringers infusion Given - New 1,000 mL, Intravenous, at 20 mL/hr, Bag CONTINUOUS, Starting on Sat02/17/21 at 1300, Until Sat02/19/21 at 1259, Pre-O p documented in this encounter Orders First Ordered Date Medications Ordered That Might Not Have Count Last Ordered Date Been Administered acetaminophen (TYLENOL EXTRA STRENGTH) 1 02/17/2021 tablet 1,000 mg ceFAZolin (ANCEF) injection 2 g 1 2020 diphenhydrAMINE HCL (BENADRYL) injection 1 02/17/2021 25 mg fentaNYL citrate PF (SUBLIMAZE) 1 2020 injection 50 mcg haloperidol lactate (HALDOL) injection 1 1 02/17/2021 mg HYDROmorphone injection (DILAUDID) 1 mg 1 02/17/2021 lidocaine PF 1% (10 mg/mL) injection 0.2 1 02/17/2021 mL oxyCODONE (ROXICODONE) tablet 5-10 mg 1 02/17/2021 First Ordered Date Diet Count Last Ordered Date DISCHARGE DIET REGULAR 1 02/17/2021 First Ordered Date Nursing Count Last Ordered Date BATHING INSTRUCTIONS 1 02/17/2021 DISCHARGE ACTIVITY DRIVING 1 02/17/2021 DISCHARGE ACTIVITY LIFTING 1 02/17/2021 DISCHARGE ACTIVITY NORMAL 1 02/17/2021 DISCHARGE SIGNS/SYMPTOMS 1 02/17/2021 DISCHARGE WOUND CARE 1 02/17/2021 EXTUBATE PATIENT PER ENDOTRACHIAL TUBE 2 02/17/2021 REMOVAL GUIDELINE IMPLEMENT ASC DAY OF SURGERY PROTOCOL 1 02/17/2021 IMPLEMENT FLUID REPLACEMENT, CARE OF THE 2 02/17/2021 PATIENT REQUIRING DURING PHAS INITIATE TRIPP YU 2 02/17/2021 NOTIFY PHYSICIAN 1 02/17/2021 NURSE COMMUNICATION 1 02/17/2021 PERIPHERAL IV MAINTENANCE 1 02/17/2021 First Ordered Date Discharge Count Last Ordered Date DISCHARGE PATIENT NOW 1 02/17/2021 First Ordered Date Vital Signs Count Last Ordered Date VITAL SIGNS 1 02/17/2021 documented in this encounter Additional Health Concerns Noted Time Assessment 02/10/2021 12:36 PM EC TEACHER A fall risk assessment has been complet ed for the patient documented as of this encounter Care Teams Start Date End Date Family Coach Relationship Specialty 06/07/20 Evan Sierra MD PCP - General Family [facility] [place] [address] 07/21/20 Segun Merrill MD [address] [place] [address] documented as of this encounter
--- OUTSIDE RECORDS SUMMARY | 2021-02-21 13:32 | XMS REPORT | Encounter Summary ---
Author Author [facility] Address Unknown Phone Unavailable Care Team Providers Care Field Support Specialist Name Role Phone Evan Sierra MD PCP Ashley Merrill MD Unavailable [phone] Encounter Details Care Team Description Date Type Department 02/07/2021 Travel Social History Date Tobacco Use Types [...] at Date Recorded Female 02/14/2021 9:03 AM NURSING ADMIN Date Recorded COVID-19 Exposure Response 02/07/2021 8:19 AM NURSING ADMIN In the last month, have you been [...] Concerns Noted Time Assessment 02/07/2021 10:00 AM NURSING ADMIN A fall risk assessment has been complet ed for the patient documented as of this encounter Care Teams Start Date End Date Field Support Specialist Relationship Specialty 06/07/20 Evan Sierra MD PCP - General Family [address] [facility] [place] [place] [address] 07/21/20 Segun Merrill MD [address] [place] [address] documented as of this encounter
--- OUTSIDE RECORDS SUMMARY | 2021-02-21 13:32 | XMS REPORT | Encounter Summary ---
Author Author [facility] Organization [facility] Address Unknown Phone Unavailable Care Team Providers Care Manufacturing Process Technician Name Role Phone Evan Sierra MD PCP Ashley Merrill MD Unavailable [phone] Reason for Visit * Auth/Cert Diagnoses / Procedures Referred By Contact Referred To Cont[facility] ct Specialty Diagnoses Malignant neoplasm of overlapping sites of both breasts in female, estrogen receptor positive (HCC) Malignant neoplasm of overlapping sites of both breasts in female, estrogen receptor positive (HCC) [C50.811, C50.812, Z17.0] Procedures WI INSJ TUNNELED CTR VAD W/SUBQ PORT AGE 5 YR/> WI FLUORO CENTRAL VENOUS ACCESS DEV PLACEMENT placement of port-a-cath with fluoroscopy Referral ID Status Reason Start Date Expiration Visits Vi sits Date Requested Authorized [id number] 1 1 Encounter Details Care Team Description Date Type [place] [address] [place], [place] [address] Malignant neoplasm of overlapping sites of both breasts in female, estrogen receptor positive (HCC) 02/17/2021 Hospital Operating Room: [facility] [address] [facility] [place] [address] Social History Date Tobacco Use Types Packs/Day [...] at Date Recorded Female 02/14/2021 9:03 AM FOOD SELECTOR Date Recorded COVID-19 Exposure Response 02/17/2021 11:19 AM FOOD SELECTOR In the last month, have you been in contact with No / Unsure someone who was confirmed or suspected to have Coronavirus / COVID-19? documented as of this encounter Last Filed Vital Signs Reading Time Taken Comments Vital Sign 130/76 02/17/2021 2:30 PM FOOD SELECTOR Blood Pressure 69 02/17/2021 2:30 PM FOOD SELECTOR Pulse 36.5 C (97.7 F) 02/17/2021 2:30 PM FOOD SELECTOR Temperature - - Respiratory Rate 100% 02/17/2021 2:30 PM FOOD SELECTOR Oxygen Saturation - - Inhaled Oxygen Concentration 42.6 kg (94 lb) 02/17/2021 12:21 PM FOOD SELECTOR Weight 154.9 cm (5' 1") 02/17/2021 12:21 PM FOOD SELECTOR Height 17.76 02/17/2021 12:21 PM FOOD SELECTOR Body Mass Index documented in this encounter [...] Cristobal Jr., MD - 02/17/2021 11:19 AM FOOD SELECTOR Images from the original note were not included. Reason for Visit: Cancer Amy Lobato is a 60 y.o. female. Cancer Staging Malignant neoplasm of overlapping sites of both breasts in female, estrogen rece ptor positive (HCC) Staging form: Breast, AJCC 8th Edition - Clinical stage from 07/12/2020: Stage IV (cT1c, cN1, pM1, ER+, WI+, HER2-) - Si gned by Ratna Ashraf APRN-GUINEA PIG BREEDER on 07/12/2020 History of Present Illness Amy Lobato is a 60-year-old postmenopausal female who was diagnosed with a lef t breast cancer in October 2017 and received treatment in [place], [place]. She u nderwent bilateral mastectomy and left sided sentinel lymph node biopsy on 2017. Tumor size was 1.3 cm, 1 out of 7 lymph nodes was positive. ER was 95%, WI 0%, HER-2 1+ by IHC. MammaPrint score [...] d. She is currently taking anastrozole and gbjh-yyp-hlbhblt pain medicines and tramadol with inadequate pain control. She has recently moved to [facility], and wants to receive therapy here. No family history of breast cancer. Brother had colon cancer. Another brother had neuroendocrine carcinoma. She underwent a CT-guided biopsy of left iliac bone. This showed metastatic car cinoma consistent with mammary origin. ER was 16%, WI 0%, HER-2 1+ by IHC. Bon e scan showed findings compatible with multifocal scattered osseous metastatic d isease. CT of the chest abdomen and pelvis showed multifocal focal osseous meta stasis. Also multifocal hepatic metastatic disease. Liver biopsy from 07/07/2020 showed metastatic carcinoma consistent with breast primary ER 99%, WI 0%, HER2 1 + IHC, Ki67 42%. [...] carcinoma consistent with breast primary ER 99%, WI 0%, HER2 1+ IHC, Ki67 42%. We [...] infection and pneumothorax. She wishes to proceed. SELECTOR documented in this encounter OR Notes * Operative Report (Direct Entry) - Jemal Cristobal Jr., MD - 02/17/2021 1:00 PM FOOD SELECTOR OPERATIVE REPORT Name: Amy Lobato is a [...] with blunt blade scalpel and a n 8-Lebanese catheter was threaded through the venotomy into [...] - stable Jemal Cristobal Jr., MD Pager [phone] SELECTOR documented in this encounter Miscellaneous Notes * Pre-Anesthesia Patient Instructions - Mignon Diaz RN - 02/10/2021 12:39 PM FOOD SELECTOR Amy, You are scheduled for your procedure [...] wait in your vehicle. OUR ADDRESS IS [address] [place] [address] TAKE [facility] TO [address] [place] [address] AND TURN LEFT. TAKE A LEFT AT THE FIRST OR SECOND ENTRANCE AND FOLLOW SIGNAGE TO THE [facility] ([address] [place] [address]). To Reschedule please call your surgeon's office For Questions call: ANKUR Phone #s: [phone] ONE WEEK PRIOR TO SURGERY: UNLESS INSTRUCTED [...] OF 18) TO BRING YOU TO YOUR [facility], DRIVE YOU HOME, AND STAY WITH YOU UNTIL THE NEXT DAY. NO UBERS, TAXIS OR BUSES ARE ALLOWED -- If you do not have a responsible adult regional owner operator truck driver we will be u nable to do the procedure. IF YOU'RE HAVING ORTHOPEDIC SURGERY, PLEASE REMOVE NAIL SYRIAN FROM THE EXTREMIT Y THAT IS GOING TO BE WORKED ON BRING CRUTCHES OR RESPIRATORY INHALERS IF APPLICABLE PLEASE BRING YOUR CELL PHONE WITH YOU TO YOUR PROCEDURE. BRING INSURANCE CARD AND DRIVERS LICENSE, AND BE PREPARED TO PAY ANY COPAY/DEDUC TIBLE ON ARRIVAL WHEN CHECKING IN IF YOU ARE FULLY VACCINATED FOR COVID, PLEASE BRING YOUR VACCINATION CARD FOR WI ROXY. Other instructions Notify your surgeon if: [...] COVID-19 EXPOSURE WE ARE TAKING THE PROPER WI ECAUTIONS LISTED BELOW YOU ARE PERMITTED 1 [...] COPY OF YOUR COVID TEST RESULTS TO [email or web address] FAX TO [phone] NO LATER THAN 02/16/21 OR YOUR PROCEDURE COULD BE CANCELLED. Pre-Admissions Testing (PAT) [facility], [facility] [employer] [address] [place] [address] (Main) PAT Phone #s: [phone] (PAT) [email or web address] An Affiliate of [facility] SELECTOR documented in this encounter Plan of Treatment Order Schedule Name Type Priority Associated Diag noses ONE TIME for 1 Occurrences starting 01/30 until 02/17/2021 POC GLUCOSE Point of Care Routine Testing documented as of this encounter Procedures Comments Procedure Name Priority Date/Time Associated Diag nosis INSERTION TUNNELED 02/17/2021 Malignant neoplasm of CENTRAL VENOUS ACCESS 1:36 PM FOOD SELECTOR overlapping sit es of both DEVICE WITH SUBCUTANEOUS breasts in female, PORT - AGE 4 YEARS AND estrogen receptor OVER positive (HCC) ECG-SCAN 02/17/2021 12:00 AM FOOD SELECTOR documented in this encounter Results * ECG-SCAN (02/17/2021 12:00 AM FOOD SELECTOR) Narrative 02/17/2021 12:00 AM FOOD SELECTOR Ordered by an unspecified provider. documented in this encounter Visit Diagnoses Diagnosis Malignant neoplasm of overlapping sites of both breasts in female, estrogen receptor positive (HCC) - Primary documented in this encounter Administered Medications Action Date Dose Rate Site Medication Order MAR Action 02/17/2021 12:45 PM FOOD SELECTOR 500 mg acetaminophen (TYLENOL EXTRA STRENGTH) Given tablet 500 mg 500 mg, Oral, ONCE, 1 dose, On Sat02/17/21 at 1330, To be given pre-op with a sip of water immediately upon arrival to bay (>30 minutes prior to scheduled surgery time). TOTAL ACETAMINOPHEN DOSE NOT TO EXCEED 4 GM DAILY., Pre-Op 02/17/2021 12:47 PM FOOD SELECTOR 20 mL/hr lactated ringers infusion Given - New 1,000 mL, Intravenous, at 20 mL/hr, Bag CONTINUOUS, Starting on Sat02/17/21 at 1300, Until Sat02/19/21 at 1259, Pre-O p documented in this encounter Orders First Ordered Date Medications Ordered That Might Not Have Count Last Ordered Date Been Administered acetaminophen (TYLENOL EXTRA STRENGTH) 1 02/17/2021 tablet 1,000 mg bupivacaine 0.25%/EPINEPHrine 1:200,000 1 02/17/2021 injection ceFAZolin (ANCEF) injection 2 g 1 2020 diphenhydrAMINE HCL (BENADRYL) injection 1 02/17/2021 25 mg fentaNYL citrate PF (SUBLIMAZE) 1 2020 injection 50 mcg haloperidol lactate (HALDOL) injection 1 1 02/17/2021 mg heparin lock flush PF syringe 1 02/18/20 HYDROmorphone injection (DILAUDID) 1 mg 1 02/17/2021 lidocaine 1%/EPINEPHrine 1:100,000 1 injection lidocaine PF 1% (10 mg/mL) injection 0.2 1 02/17/2021 mL oxyCODONE (ROXICODONE) tablet 5-10 mg 1 02/17/2021 sodium chloride 0.9% irrigation bottle 1 02/17/2021 First Ordered Date Diet Count [...] 02/17/2021 PATIENT REQUIRING DURING PHAS INITIATE TRIPP HUGGER 2 02/17/2021 NOTIFY PHYSICIAN 1 02/17/2021 NURSE COMMUNICATION 1 02/17/2021 PERIPHERAL IV MAINTENANCE 1 02/17/2021 First Ordered Date Discharge Count Last Ordered Date DISCHARGE PATIENT NOW 1 02/17/2021 First Ordered Date Vital Signs Count Last Ordered Date VITAL SIGNS 1 02/17/2021 documented in this encounter Additional Health Concerns Noted Time Assessment 02/10/2021 12:36 PM FOOD SELECTOR A fall risk assessment has been complet ed for the patient documented as of this encounter Care Teams Start Date End Date Manufacturing Process Technician Relationship Specialty 06/07/20 Evan Sierra MD PCP - General Family [address] [place] [address] 07/21/20 Segun Merrill MD [address] [place] [address] documented as of this encounter
--- OUTSIDE RECORDS SUMMARY | 2021-02-21 13:32 | XMS REPORT | Encounter Summary ---
Author Author [facility] Organization [facility] Address Unknown Phone Unavailable Care Team Providers Care Cinder Crew Worker Name Role Phone Evan Sierra MD PCP Ashley Merrill MD Unavailable [phone] Encounter Details Care Team Description Date Type Department Ashley Merrill MD [address] [place], [place] 01/26/2021 Orders Only Oncology: [facility] [address] [place], [place] [phone] Social History Date Tobacco Use Types Packs/Day [...] at Date Recorded Female 02/14/2021 9:03 AM FAMILY REUNIFICATION SPECIALIST Date Recorded COVID-19 Exposure Response 01/25/2021 [...] Date End Date Prescription Sig Dispensed Refills 01/26/2021 morphine SR (MS CONTIN) Take one 90 tablet 0 15 mg tablet tablet by mouth every 8 hours 01/26/2021 oxyCODONE/acetaminophen Take one 90 tablet 0 (ENDOCET) 5/325 mg tablet tablet to two tablets by mouth every 3 hours as needed for Pain documented in this encounter Plan of Treatment Not on filedocumented as of this encounter Visit Diagnoses Not on filedocumented in this encounter Discontinued Medications Start Date End Date Medication Sig Discontinue Reason 08/12/2020 01/26/2021 oxyCODONE/acetaminophen Take one Reorder (ENDOCET) 5/325 mg tablet tablet to two tablets by mouth every 3 hours as needed for Pain 12/30/2020 01/26/2021 morphine SR (MS CONTIN) Take one Reorder 15 mg tablet tablet by mouth every 8 hours documented as of this encounter Additional Health Concerns Noted Time Assessment 01/13/2021 11:23 AM CDT A fall risk assessment has been complet ed for the patient documented as of this encounter Care Teams Start Date End Date Cinder Crew Worker Relationship Specialty 06/07/20 Evan Sierra MD PCP - General Family [address] [place] [address] 07/21/20 Segun Merrill MD [address] [place] [address] documented as of this encounter
--- OUTSIDE RECORDS SUMMARY | 2021-02-21 13:32 | XMS REPORT | Encounter Summary ---
Author Author [facility] Organization [facility] Address Unknown Phone Unavailable Care Team Providers Care Insurance Agent Name Role Phone Evan Sierra MD PCP Ashley Merrill MD Unavailable [phone] Encounter Details Care Team Description Date Type Department Jovany Choi MD [address] [place] [address] 02/06/2021 Orders Only Oncology: [facility] [address] 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
--- OUTSIDE RECORDS SUMMARY | 2021-02-21 13:32 | XMS REPORT | Encounter Summary ---
Author Author [facility] Organization [facility] Address Unknown Phone Unavailable Care Team Providers Care Beverage Steward Name Role Phone Evan Sierra MD PCP Ashley Merrill MD Unavailable [phone] Encounter Details Care Team Description Date Type Department Yessica Lu, PHARMD 01/26/2021 Orders Only The [address] [address] Social History Date Tobacco Use Types Packs/Day [...] at Date Recorded Female 02/14/2021 9:03 AM DEVELOPMENT SPEC Date Recorded COVID-19 Exposure Response 01/25/2021 7:12 [...] encounter Care Teams Start Date End Date Beverage Steward Relationship Specialty 06/07/20 Evan Sierra MD PCP - [address] [place] [address] 07/21/20 Segun Merrill MD [address] [place] [address] documented as of this encounter
--- OUTSIDE RECORDS SUMMARY | 2021-02-21 13:33 | XMS REPORT | Encounter Summary ---
Author Author [facility] Organization [facility] Address Unknown Phone Unavailable Care Team Providers Care Food Adviser Name Role Phone Evan Sierra MD PCP Ashley Merrill MD Unavailable Reason for Referral * Test (Routine) - Authorized Diagnoses / Procedures Referred By Contact Referred To [facility] ct Specialty Diagnoses Malignant neoplasm of overlapping sites of both breasts in female, estrogen receptor positive (HCC) Clinical trial participant Procedures 2D + DOPPLER ECHO WI ECHO TTHRC R-T 2D W/WOM-MODE COMPL SPEC&COLR D Jovany Choi MD [address] [place] [address] [facility] [address] [facility] [address] [place] [address] Cardiology Referral ID Status Reason Start Date Expiration Visits Vi sits Date Requested Authorized [id number] Authorized 01/13/2021 01/13/2022 1 1 Reason for Visit * Test (Routine) - Authorized Diagnoses / Procedures Referred By Contact Referred To [facility] ct Specialty Diagnoses Malignant neoplasm of overlapping sites of both breasts in female, estrogen receptor positive (HCC) Clinical trial participant Procedures 2D + DOPPLER ECHO WI ECHO TTHRC R-T 2D W/WOM-MODE COMPL SPEC&COLR D Jovany Choi MD [address] [place] [address] [facility] [address] [place] [address] Cardiology Referral ID Status Reason Start Date Expiration Visits Vi sits Date Requested Authorized [id number] Authorized 01/13/2021 01/13/2022 1 1 Encounter Details Care Team Description Date Type Department Jovany Choi MD [address] [facility] [place] [address] 01/20/2021 Hospital Cardiology:Center f or Encounter [facility] [address] [facility] [facility] [address] [place] [address] Social History Date Tobacco Use Types Packs/Day [...] at Date Recorded Female 02/14/2021 9:03 AM RECORDING ARTIST Date Recorded COVID-19 Exposure Response 01/20/2021 9:59 AM CDT In the last month, have you been in contact with No / Unsure someone who was confirmed or suspected to have Coronavirus / COVID-19? documented as of this encounter Last Filed Vital Signs Reading Time Taken Comments Vital Sign - - Blood Pressure - - Pulse - - Temperature - - Respiratory Rate - - Oxygen Saturation - - Inhaled Oxygen Concentration 44 kg (97 lb) 01/20/2021 3:43 PM CDT Weight 152.4 cm (5') 01/20/2021 3:43 PM CDT Height 18.94 01/20/2021 3:43 PM CDT Body Mass Index documented in this encounter Functional Status Date of Assessment Functional Status Response 06/13/2020 Does the patient have a hearing impairment: No 06/13/2020 Does the patient have a visual impairment: Yes documented as of this encounter Medications at Time of Discharge Start Date End Date Medication Sig Dispensed Refills 07/12/2020 loperamide (IMODIUM A-D) Take 2 90 capsule 3 2 mg capsuleIndications: capsules by Malignant neoplasm of mouth after overlapping sites of both first breasts in female, loose/frequen estrogen receptor t bowel positive (HCC) movement, then 1 capsule every 2 hours (2 capsules every 4 hours at night) until 12 hours have passed without a bowel movement. 07/21/2020 ondansetron (ZOFRAN) 8 mg Take one 90 tablet 3 tablet tablet by mouth every 8 hours as needed for Nausea or Vomiting. senna/docusate Take 1-2 0 (SENOKOT-S) 8.6/50 mg tablets by tablet mouth twice daily as needed (constipation ). 07/21/2020 traZODone (DESYREL) 50 mg Take one 60 tablet 3 tablet tablet by mouth at bedtime as needed for Sleep. If not helpful after 2 weeks, can increase to 100 mg (2 pills) every night at bedtime. 01/06/2021 02/03/[address] (CYMBALTA) Take one 30 capsule 3 30 mg capsule capsule by mouth daily. 12/30/2020 01/26/2021 morphine SR (MS CONTIN) Take one 90 tablet 0 15 mg tablet tablet by mouth every 8 hours 08/12/2020 01/26/2021 oxyCODONE/acetaminophen Take one 90 tablet 0 (ENDOCET) 5/325 mg tablet tablet to two tablets by mouth every 3 hours as needed for Pain documented as of this encounter Discharge Disposition Code Departure Means Destination Disposition Home Home or Self Care documented in this encounter Plan of Treatment Not on filedocumented as of this encounter Procedures Comments Procedure Name Priority Date/Time Associated Diag nosis 2D + DOPPLER ECHO W/ Routine 01/20/2021 Malignant neoplasm of STRAIN NO CONTRAST 3:43 PM CDT overlapping sites of both breasts in female, estrogen receptor positive (HCC) Clinical trial participant documented in this encounter Results * 2D + DOPPLER ECHO W/ STRAIN [...] STRAIN RA PRESSURE 3 OTHER OUTSIDE LAB GODINEZ'S 65 % OTHER OUTSIDE BIPLANE EF LAB Modality Anatomical Region Laterality Ultrasound Specimen Narrative OTHER OUTSIDE LAB - 01/20/2021 4:03 PM CDT 1. Normal left ventricular size and systolic function. Calculated ejection fraction 65% using Godinez's biplane method. Average global longitudinal strain -18.6% using [employer] Epiqsystem. Normal diastolic function. 2. Normal right ventricular size and sys tolic function. 3. Normal left and right atrial sizes. 4. Mild mitral valve regurgitation. 5. Trivial aortic valve regurgitation. 6. No significant pericardial effusion. No prior studies available for comparison. Performing Organization Address City/State/ZIP Code P chad Number OTHER OUTSIDE LAB documented in this encounter Visit Diagnoses Diagnosis Malignant neoplasm of overlapping sites of both breasts in female, estrogen receptor positive (HCC) Clinical trial participant documented in this encounter Additional Health Concerns Noted Time Assessment 01/13/2021 11:23 AM CDT A fall risk assessment has been complet ed for the patient documented as of this encounter Care Teams Start Date End Date Food Adviser Relationship Specialty 06/07/20 Evan Sierra MD PCP - General [address] [address] 07/21/20 Segun Merrill MD [address] [place] [address] documented as of this encounter
--- OUTSIDE RECORDS SUMMARY | 2021-02-21 13:33 | XMS REPORT | Encounter Summary ---
Author Author [facility] Organization [facility] Address Unknown Phone Unavailable Care Team Providers Care Value Stream Manager Name Role Phone Evan Sierra MD PCP Ashley Merrill MD Unavailable [phone] Encounter Details Care Team Description Date Type Department Jovany Choi MD [address] [place] [address] 01/17/2021 Orders Only Oncology: [facility] [address] [place], [place] [phone] Social History Date Tobacco Use Types Packs/Day [...] at Date Recorded Female 02/14/2021 9:03 AM COMPLAINT INSPECTOR Date Recorded COVID-19 Exposure Response 01/13/2021 8:06 AM CDT In the last month, have [...] encounter Care Teams Start Date End Date Value Stream Manager Relationship Specialty 06/07/20 Evan Sierra MD PCP - General [address] [address] 07/21/20 Segun Merrill MD [address] [facility] [place], [place] [phone] documented as of this encounter
--- OUTSIDE RECORDS SUMMARY | 2021-02-21 13:33 | XMS REPORT | Encounter Summary ---
Author Author [facility] Organization [facility] Address Unknown Phone Unavailable Care Team Providers Care Integration Solution Architect Name Role Phone Evan Sierra MD PCP Ashley Merrill MD Unavailable [phone] Reason for Referral * Radiology Services (Routine) - Authorized Diagnoses / Procedures Referred By Contact Referred To Conta ct Specialty Diagnoses Malignant neoplasm of overlapping sites of both breasts in female, estrogen receptor positive (HCC) Clinical trial participant Procedures NM BONE SCAN Jovany Prajapati MD [address] [place] [address] Nuclear Med [address] [place] [address]. Level 1, [address] [place] [address] Radiology Referral ID Status Reason Start Date Expiration Visits Vi sits Date Requested Authorized [id number] Authorized 01/13/2021 01/13/2022 7 7 Reason for Visit * Radiology Services (Routine) - Authorized Diagnoses / Procedures Referred By Contact Referred To Conta ct Specialty Diagnoses Malignant neoplasm of overlapping sites of both breasts in female, estrogen receptor positive (HCC) Clinical trial participant Procedures NM BONE SCAN Jovany Prajapati MD [address] [place] [address] Nuclear Med [address] [place] [address]. Level 1, [address] [place] [address] Radiology Referral ID Status Reason Start Date Expiration Visits Vi sits Date Requested Authorized [id number] Authorized 01/13/2021 01/13/2022 7 7 Encounter Details Care Team Description Date Type Department Jovany Choi MD [address] [facility] [place] [address] 01/25/2021 Hospital Imaging, Nuclear Encounter Medicine: [facility] [address] [place] [address]. Level 1, [address] [place], [place] [phone] Social History Date Tobacco Use Types Packs/Day [...] at Date Recorded Female 02/14/2021 9:03 AM REEXAMINER Date Recorded COVID-19 Exposure Response 01/25/2021 7:12 [...] Procedure Name Priority Date/Time Associated Diag nosis NM BONE SCAN WHOLEBODY Routine 01/25/2021 Maligna nt neoplasm of 12:46 PM CDT overlapping sites of both breasts in female, estrogen receptor positive (HCC) Clinical trial participant documented in this encounter Results * NM BONE SCAN WHOLEBODY (01/25/2021 12:46 [...] Clinical trial participant [Z00.6 (ICD-10-CM)]. Clinical trial [facility] [id number]. Technique: Delayed whole-body scintigrams were obtained. In [...] trial participant [Z00.6 (ICD-10-CM)]. Clinical trial [facility] [id number]. Technique: Delayed whole-body scintigrams were obtained. In [...] on 01/25/2021 4:53 PM. Dictated by CHRISTOPHER RBADLEY D.O. on 01/25/2021 1:19 PM. Performing Organization Address City/State/ZIP Code P chad Number [facility] RESULTS documented in this encounter Visit Diagnoses Diagnosis Malignant neoplasm of overlapping sites of both breasts in female, estrogen receptor positive (HCC) Clinical trial participant documented in this encounter Administered Medications Action Date Dose Rate Site Medication Order MAR Action 01/25/2021 9:04 AM CDT 22.4 millicuries RP DX Tc-99m medronate (MDP) injection Given 25 millicurie 25 millicurie, Intravenous, ONCE, 1 dose, On Sat01/25/21 at 1000 documented in this encounter Orders First Ordered Date Medications Ordered That Might Not Have Count Last Ordered Date Been Administered RP DX Tc-99m medronate (MDP) injection 1 01/25/2021 25 millicurie documented in this encounter Additional Health Concerns Noted Time Assessment 01/13/2021 11:23 AM CDT A fall risk assessment has been complet ed for the patient documented as of this encounter Care Teams Start Date End Date Integration Solution Architect Relationship Specialty 06/07/20 Evan Sierra MD PCP - General Family [facility] [place], [place] [address] 07/21/20 Segun Merrill MD [address] [place] [address] documented as of this encounter
--- OUTSIDE RECORDS SUMMARY | 2021-02-21 13:33 | XMS REPORT | Encounter Summary ---
Author Author [facility] Organization [facility] Address Unknown Phone Unavailable Care Team Providers Care Senior Graphic Designer Name Role Phone Evan Sierra MD PCP Ashley Merrill MD Unavailable [phone] Reason for Visit * Radiology Services (Routine) - Authorized Diagnoses / Procedures Referred By Contact Referred To Conta ct Specialty Diagnoses Malignant neoplasm of overlapping sites of both breasts in female, estrogen receptor positive (HCC) Clinical trial participant Procedures NM BONE SCAN WHOLEBODY Jovany Choi MD [address] [place] [address] [place] [address]. Level 1, [address] [place], [place] Radiology Referral ID Status Reason Start Date Expiration Visits Vi sits Date Requested Authorized [id number] Authorized 01/13/2021 01/13/2022 7 7 Encounter Details Care Team Description Date Type Department Jovany Choi MD [address] [place] [address] 01/25/2021 Hospital Imaging, Nuclear Encounter Medicine: 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 Clinical trial [facility] [id number]. Technique: Delayed whole-body scintigrams were obtained. In [...] trial participant [Z00.6 (ICD-10-CM)]. Clinical trial [facility] [id number]. Technique: Delayed whole-body scintigrams were obtained. In [...] RESULTS documented in this encounter Visit Diagnoses Not on filedocumented in this encounter Additional Health Concerns Noted Time Assessment 01/13/2021 11:23 AM CDT A fall risk assessment has been complet ed for the patient documented as of this encounter Care Teams Start Date End Date Senior Graphic Designer Relationship Specialty 06/07/20 Evan Sierra MD PCP - General [address] [address] 07/21/20 Segun Merrill MD [address] [facility] [place], [place] [id number] documented as of this encounter
--- OUTSIDE RECORDS SUMMARY | 2021-02-21 13:33 | XMS REPORT | Encounter Summary ---
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 Date Recorded COVID-19 Exposure Response 01/25/2021 7:12 [...] Procedure Name Priority Date/Time Associated Diag nosis PFT COMPLETE PULM Routine 01/25/2021 Malignant ne oplasm of FUNCTION 7:25 AM CDT overlapping sites o f both breasts in female, estrogen receptor positive (HCC) Clinical trial participant documented in this encounter Results * PFT COMPLETE PULM FUNCTION (01/25/2021 7:25 AM CDT) FVC-Pre 2.14 L [facility] FVC-%Pred-pre 78 % [facility] FEV1-Pre 1.72 L [facility] FEV1-%Pred-Pre 79 % [facility] FEV1/FVC-Pre 80 % [facility] [id number] 68 % [facility] [id number] 1.79 L/sec [facility] [id number]-P 87 % [facility] re RVPleth-Pre [...] MAIN DLVA-#SD -0.144 ml/min/mmHg/L [facility] [id number] 76 % [facility] Specimen Narrative Performing Organization Address City/State/ZIP Code P chad Number [facility] [address] [place], [place] [address] documented in this encounter Visit Diagnoses Diagnosis Malignant neoplasm of overlapping sites of both breasts in female, estrogen receptor positive (HCC) Clinical trial participant documented in this encounter Additional Health Concerns Noted Time Assessment 01/13/2021 11:23 AM CDT A fall risk assessment has been complet ed for the patient documented as of this encounter Care Teams Start Date End Date Kitchen And Counter Worker Relationship Specialty 06/07/20 Evan Sierra MD PCP - General [address] [place] [address] 07/21/20 Segun Merrill MD [address] [facility] [place], [place] [id number] documented as of this encounter
--- OUTSIDE RECORDS SUMMARY | 2021-02-21 13:33 | XMS REPORT | Encounter Summary ---
Author Author [facility] Organization [facility] Address Unknown Phone Unavailable Care Team Providers Care Human Resources Executive Assistant Name Role Phone Evan Sierra MD PCP Ashley Merrill MD Unavailable [phone] Reason for Visit * Reason Comments Eye Problem Study [facility] [id number], DENISE 2yrs ago. Pt has a Hx of Bone cancer, diagnosed 6-7months ago. Eye Pain No pain or discomfort OU. Other Pt finds that her eyes tend to water alot. Pt just off of Versinio drug as of last week. Eye Problem No eye drops being used cur rently Other No previous eye surgeries. Cancer in back is making nerves in legs hurt. 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 female . Subjective Eye Problem (Study [facility] [id number], DENISE 2yrs ago. Pt has a Hx of Bone cancer, diagnos ed 6-7months ago. ), Eye Pain (No pain or discomfort OU. ), Other (Pt finds that her eyes tend to water alot. Pt just off of Versinio drug as of last week. ), E ye Problem (No eye drops being used currently ), and Other (No previous eye surg eries. Cancer in back is making nerves in legs hurt. ) HPI Patient here for baseline exam for study Never had good eyes, has a lazy eye per patient No prior eye surgeries Wears glasses, just got glasses a couple of months ago Objective Base Eye Exam Visual Acuity (Snellen - Linear) Right Left Dist cc 20/25 20/25 Dist ph cc NI NI Correction: Glasses Tonometry ([facility], 10:12 AM) Right Left Pressure 10 12 Pupils Dark Light React APD Right 3.0 2.0 + 0 Left 3.0 2.0 + 0 Visual Lowry Left Right Full Full Extraocular Movement Right Left Ortho Ortho -- -- -- -- -- -- -- -- -- -- -- -- -- -- -- -- Neuro/Psych Oriented x3: Yes Mood/Affect: Normal Dilation Both eyes: 1.0% Tropicamide, 2.5% Phenylephrine @ 10:33 AM Additional Tests Glare Testing Medium Right 20/30 Left 20/30 Slit Lamp and Fundus Exam External Exam Right Left External Normal Normal Slit Lamp Exam Right Left Lids/Lashes Normal Normal Conjunctiva/Sclera White and quiet White and quiet Cornea Clear Clear, pigment Anterior Chamber Deep and quiet Deep and quiet Iris Flat Flat Lens 1+ NSC 1+ NSC Vitreous Posterior vitreous detachment Posterior vitreous detachment Fundus Exam Right Left Disc Sharp, healthy rim Sharp, healthy rim C/D Ratio 0.3 0.3 Macula Flat Flat Vessels Normal caliber and number Normal caliber and number Periphery Attached, no breaks or tears Attached, no breaks or tears Refraction Wearing Rx Sphere Cylinder [place] Add Right +5.50 DS +2.00 Left +3.00 +0.50 010 +2.00 Age: 2-3mos Type: PAL Manifest Refraction Sphere Cylinder [place] Dist VA Add Near VA Right +4.75 DS 20/20-2 +2.00 J2 Left +3.50 +0.50 135 20/25 +2.00 J2 Problem Research Study Patient Research study patient No ocular findings to prevent patient from getting treatment F/U per study recommendations Joselyn Fisher MD Staff Finishing And Shipping Supervisor documented in this encounter Plan of Treatment Not on filedocumented as of this encounter Visit Diagnoses Diagnosis Research study patient * Assessment & Plan Note - Joselyn Fisher MD - 01/20/2021 10:59 AM CDT Associated Problem(s): Research study patient No ocular findings to prevent patient from getting treatment F/U per study recommendations documented in this encounter Additional Health Concerns Noted Time Assessment 01/13/2021 11:23 AM CDT A fall risk assessment has been complet ed for the patient documented as of this encounter Eye Exam Right eye Left eye Dist cc 20/25 20/25 Dist ph cc NI NI Correction: Glasses Right eye Left eye Pressure 10 12 Light React APD Dark 2.0 + 0 Right eye 3.0 2.0 + 0 Left eye 3.0 Right eye Left eye Full Full Right eye Left eye Ortho Ortho Up gaze -- | -- | -- -- | -- | -- Right/left gaze -- | -- | -- -- | -- | -- Down gaze -- | -- | -- -- | -- | -- Oriented x3: Yes Mood/Affect: Normal Both eyes: 1.0% Tropicamide, 2.5% Phenyl ephrine @ 10:33 AM Medium Right eye 20/30 Left eye 20/30 Right eye Left eye External Normal Normal Right eye Left eye Lids/Lashes Normal Normal Conjunctiva/Sclera White and quiet White and quiet Cornea Clear Clear, pigment Anterior Chamber Deep and quiet Deep and quiet Iris Flat Flat Lens 1+ NSC 1+ NSC Vitreous Posterior vitreous detachment Posterio r vitreous detachment Right eye Left eye Disc Sharp, healthy rim Sharp, healthy rim C/D Ratio 0.3 0.3 Macula Flat Flat Vessels Normal caliber and number Normal calib er and number Periphery Attached, no breaks or tears Attached, no breaks or tears Cylinder [place] Add Sphere DS +2.00 Right eye +5.50 +0.50 010 +2.00 Left eye +3.00 Age: 2-3mos Type: PAL [place] Dist VA Add Near VA Sphere Cylinder 20/20-2 +2.00 J2 Right eye +4.75 DS 135 20/25 +2.00 J2 Left eye +3.50 +0.50 Care Teams Start Date End Date Human Resources Executive Assistant Relationship Specialty 06/07/20 Evan Sierra MD PCP - General Family [address] [place] [address] 07/21/20 Segun Merrill MD [address] [place] [address] documented as of this encounter"
--- OUTSIDE RECORDS SUMMARY | 2021-02-21 13:33 | XMS REPORT | Encounter Summary ---
Author Author [facility] Organization [facility] Address Unknown Phone Unavailable Care Team Providers Care Sounding Device Operator Name Role Phone Evan Sierra MD PCP Ashley Merrill MD Unavailable [phone] Reason for Visit * Reason Onset Date Comments Results 01/23/2021 Encounter Details Care Team Description Date Type Department Ratna Ashraf, GASTROENTEROLOGY PROFESSOR-EMERGENCY MEDICAL TECHNICIAN [address] [place] [address] Results 01/23/2021 Telephone Oncology: [address] 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 Patient asking if she ca n be prescribed medical marijuana. Told patient it is not legal in [place] to prescri be medical marijuana. Patient verbalized understanding. No further needs at this time. Encouraged her to call with any other questions or concerns. documented in this encounter Plan of Treatment Not on filedocumented as of this encounter Visit Diagnoses Not on filedocumented in this encounter Additional Health Concerns Noted Time Assessment 01/13/2021 11:23 AM CDT A fall risk assessment has been complet ed for the patient documented as of this encounter Care Teams Start Date End Date Sounding Device Operator Relationship Specialty 06/07/20 Evan Sierra MD PCP - General Family [address] [place] [address], [place] [address] 07/21/20 Segun Merrill MD [address] [place] [address] documented as of this encounter
--- OUTSIDE RECORDS SUMMARY | 2021-02-21 13:33 | XMS REPORT | Encounter Summary ---
Author Author [facility] Organization [facility] Address Unknown Phone Unavailable Care Team Providers Care Mirror Department Supervisor Name Role Phone Evan Sierra MD PCP Ashley Merrill MD Unavailable [phone] Reason for Referral * Radiology Services (Routine) - Authorized Diagnoses / Procedures Referred By Contact Referred To Conta ct Specialty Diagnoses Malignant neoplasm of overlapping sites of both breasts in female, estrogen receptor positive (HCC) Clinical trial participant Procedures CT CHEST WO CONTRAST Jovany Choi MD [address] [place] [address] [place], [place] [address]gun[address]. Level [address], [address] [place] [address] Radiology Referral ID Status Reason Start Date Expiration Visits Vi sits Date Requested Authorized [id number] Authorized 01/16/2021 07/17/2022 1 1 * Radiology Services (Routine) - Authorized Diagnoses / Procedures Referred By Contact Referred To Conta ct Specialty Diagnoses Malignant neoplasm of overlapping sites of both breasts in female, estrogen receptor positive (HCC) Clinical trial participant Procedures CT HEAD WO/W CONTRAST Jovany Choi MD [address] [place] [address] [facility] [place] [address], [address] [place] [address] Radiology Referral ID Status Reason Start Date Expiration Visits Vi sits Date Requested Authorized [id number] Authorized 01/13/2021 01/13/2022 1 1 Reason for Visit * Radiology Services (Routine) - Authorized Diagnoses / Procedures Referred By Contact Referred To Conta ct Specialty Diagnoses Malignant neoplasm of overlapping sites of both breasts in female, estrogen receptor positive (HCC) Clinical trial participant Procedures CT HEAD WO/W CONTRAST Jovany Choi MD [address] [place] [address] [place] [address]. [address], [address] [place] [address] Radiology Referral ID Status Reason Start Date Expiration Visits Vi sits Date Requested Authorized [id number] Authorized 01/13/2021 01/13/2022 1 1 Encounter Details Care Team Description Date [place] [address] [place] [address] 01/25/2021 Hospital Imaging, CT: [place] Encounter Medical 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 The previously measured teleservices representative right lower lobe nodule again measures [...] scattered small pulmonary metastases. The previously measured teleservices representative right lower lobe nodule again measures [...] on 01/25/2021 10:02 AM. Performing Organization Address [facility] Code P chad Number [facility] RAD RESULTS * URINALYSIS DIPSTICK (01/25/2021 8:43 AM CDT) Color,UA YELLOW [facility] Turbidity,UA CLEAR CLEAR-CLEAR [facility] Specific 1.010 1.003 - 1.035 [facility] [place]-Urine pH,UA 5.5 5.0 - 8.0 [facility] Protein,UA NEG NEG-NEG [facility] Glucose,UA NEG NEG-NEG [facility] Ketones,UA NEG NEG-NEG [facility] Bilirubin,UA NEG NEG-NEG [facility] Blood,UA NEG NEG-NEG [facility] Urobilinogen,UA NORMAL NORM-NORMAL [facility] Nitrite,UA NEG NEG-NEG [facility] Leukocytes,UA NEG NEG-NEG [facility] Specimen Urine specimen (specimen) - Urine Performing Organization Address [facility] P chad Number [facility] [place] [address] * MAGNESIUM (01/25/2021 8:10 AM CDT) Magnesium 2.4 1.6 - 2.6 mg/dL [facility] Specimen Blood Performing Organization Address [facility] P chad Number [facility] [address] [place] [phone] * PROTIME INR (PT) (01/25/2021 8:10 AM CDT) INR 1.0 0.8 - 1.2 [facility] Specimen Blood Performing Organization Address [facility]/State/ZIP Code P chad Number MAIN LAB [address] [place] [address] * PTT (APTT) (01/25/2021 8:10 AM CDT) APTT 30.9 24.0 - 36.5 SEC [facility] Specimen Blood Performing Organization Address City/[facility]/ZIP Code P chad Number MAIN LAB [address] [place] [address] * LDH-LACTATE DEHYDROGENASE (01/25/2021 8:10 AM CDT) Lactate 383 (H) 100 - 210 U/L [facility] Dehydrogenase Specimen Blood Performing Organization Address City/[facility]/ZIP Code P chad Number [facility] [address] [place] [address] * HIV 1& 2 AG-AB SCRN W REFLEX HIV 1 PCR QUANT (01/25/2021 8:10 AM CDT) Pathologist [facility] HIV 1 and 2 AG NONREACTIVEComment: Negative NR-NONREACTIVE K MAIN LAB AB Screen for HIV-1 Ag and HIV-1/2 specific antibodies. Specimen Blood Performing Organization Address City/[facility] Code P chad Number MAIN LAB [address] [place] [address] * HEPATITIS C VIRAL LOAD PCR QUANT (01/25/2021 8:10 AM CDT) Pathologist [facility] Hepatitis C HCV RNA Not Detected <12 IU/mL [facility] L AB Virus, IU/mL Comment: The test method detects HCV viral load using the Ray RealTime assay. Please correlate results with the clinical status of the patient. Specimen Blood Performing Organization Address City/[facility]/ZIP Code P chad Number [facility] [address] [place] [address] * HEPATITIS B SURFACE AG (01/25/2021 8:10 AM CDT) Pathologist [facility] HBsAg NONREACTIVEComment: HBs NR-NONREACTIVE [facility] antigen not detected. Specimen Blood Performing Organization Address City/[facility]/ZIP Code P chad Number MAIN LAB [address] [place] [address] * COMPREHENSIVE METABOLIC PANEL (01/25/2021 8:10 AM CDT) Pathologist [facility] Sodium 133 (L) 137 - 147 MMOL/L [facility] Potassium 3.8 3.5 - 5.1 MMOL/L [facility] Chloride 98 98 - 110 MMOL/L [facility] Glucose 111 (H) 70 - 100 MG/DL [facility] Blood Urea 13 7 - 25 MG/DL [facility] Nitrogen Creatinine 0.76 0.4 - 1.00 MG/DL [facility] Calcium 9.2 8.5 - 10.6 MG/DL [facility] Total Protein 7.2 6.0 - 8.0 G/DL [facility] Total Bilirubin 0.4 0.3 - 1.2 MG/DL [facility] Albumin 4.2 3.5 - 5.0 G/DL [facility] Alk Phosphatase 243 (H) 25 - 110 U/L [facility] AST (SGOT) 76 (H) 7 - 40 U/L [facility] CO2 27 21 - 30 MMOL/L [facility] ALT (SGPT) 33 7 - 56 U/L [facility] Anion Gap 8 3 - 12 [facility] eGFR Non >60 >60 mL/min [facility] Comment: Jamaican The eGFR is not validated f or use in drug dosing adjustments. Continue to use estimated creatinine clearance per dosing reference text. Please contact the Clinical Pharmacist for questions. eGFR >60 >60 mL/min [facility] Jamaican Comment: The eGFR is not validated for use in drug dosing adjustments. Continue to use estimated creatinine clearance per dosing reference text. Please contact the Clinical Pharmacist for questions. Specimen Blood Performing Organization Address City/State/ZIP Code P chad Number [facility] [address] [place] [address] * CBC AND DIFF (01/25/2021 8:10 AM CDT) White Blood 2.3 (L) 4.5 - 11.0 K/UL [facility] Cells RBC 2.96 (L) 4.0 - 5.0 M/UL [facility] Hemoglobin 10.5 (L) 12.0 - 15.0 GM/DL [facility] Hematocrit 30.5 (L) 36 - 45 % [facility] MCV 103.1 (H) 80 - 100 FL [facility] MCH 35.3 (H) 26 - 34 PG [facility] MCHC 34.3 32.0 - 36.0 G/DL [facility] RDW 15.2 (H) 11 - 15 % [facility] Platelet Count 229 150 - 400 K/UL [facility] MPV 6.7 (L) 7 - 11 FL [facility] Neutrophils 57 41 - 77 % [facility] Lymphocytes 25 24 - 44 % [facility] Monocytes 15 (H) 4 - 12 % [facility] Eosinophils 1 0 - 5 % [facility] Basophils 2 0 - 2 % [facility] Absolute 1.30 (L) 1.8 - 7.0 K/UL [facility] Neutrophil Count Absolute Lymph 0.60 (L) 1.0 - 4.8 K/UL [facility] Count Absolute 0.40 0 - 0.80 K/UL [facility] Monocyte Count Absolute 0.00 0 - 0.45 K/UL [facility] Eosinophil Count Absolute 0.00 0 - 0.20 K/UL [facility] Basophil Count Specimen Blood Performing Organization Address City/State/ZIP Code P chad Number [facility] [address] [place] [address] * TROPONIN-I (01/25/2021 8:10 AM CDT) Troponin-I 0.00 0.0 - 0.05 NG/ML [facility] Specimen Blood Performing Organization Address City/State/ZIP Code P chad Number [facility] [address] [place] [address] documented in this encounter Visit Diagnoses Diagnosis Malignant neoplasm of overlapping sites of both breasts in female, estrogen receptor positive (HCC) Clinical trial participant documented in this encounter Administered Medications Action Date Dose Rate Site Medication Order MAR Action 01/25/2021 9:27 AM CDT 80 mL iohexoL (OMNIPAQUE-350) 350 mg/mL Given injection 80 mL 80 mL, Intravenous, ONCE, 1 dose, On We d 01/25/21 at 0900, NOTE: This is a HIGH ALERT Medication. 01/25/2021 9:28 AM CDT 50 mL sodium chloride PF 0.9% injection 50 mL Given 50 mL, Intravenous, ONCE, 1 dose, On We d 01/25/21 at 0900, Intra-procedure (IR) documented in this encounter Additional Health Concerns Noted Time Assessment 01/13/2021 11:23 AM CDT A fall risk assessment has been complet ed for the patient documented as of this encounter Care Teams Start Date End Date Mirror Department Supervisor Relationship Specialty 06/07/20 Evan Sierra MD PCP - General Family [address] [place] [address] 07/21/20 Segun Merrill MD [place] [address] [facility] [place] [address] documented as of this encounter
--- OUTSIDE RECORDS SUMMARY | 2021-02-21 13:33 | XMS REPORT | Encounter Summary ---
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
--- OUTSIDE RECORDS SUMMARY | 2021-02-21 13:33 | XMS REPORT | Encounter Summary ---
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 Patient has discontinued taking abemaciclib. The patient's provider, Dr. Choi, has noted the above information in their note. The patient may be re-enrolled at any time by contacting [phone]. Hali Yusuf PHARMD Clinical Pharmacist 01/17/2021 documented in this encounter Plan of Treatment Not on filedocumented as of this encounter Visit Diagnoses Not on filedocumented in this encounter Discontinued Medications Start Date End Date Medication Sig Discontinue Reason 12/21/2020 01/17/2021 abemaciclib (VERZENIO) Take one 150 mg tabletIndications: tablet by Malignant neoplasm of mouth twice overlapping sites of both daily. breasts in female, estrogen receptor positive (HCC) documented as of this encounter Additional Health Concerns Noted Time Assessment 01/13/2021 11:23 AM CDT A fall risk assessment has been complet ed for the patient documented as of this encounter Care Teams Start Date End Date Inside Sales Account Executive Relationship Specialty 06/07/20 Evan Sierra MD PCP - General Family [facility] [place] [address] 07/21/20 Segun Merrill MD [address] [place] [address] documented as of this encounter
--- OUTSIDE RECORDS SUMMARY | 2021-02-21 13:33 | XMS REPORT | Encounter Summary ---
Author Author [facility] Organization [facility] Address Unknown Phone Unavailable Care Team Providers Care Product Tester Fiberglass Name Role Phone Evan Sierra MD PCP Ashley Merrill MD Unavailable [phone] Reason for Visit * Reason Onset Date Comments Research 01/25/2021 Encounter Details Care Team Description Date Type Department Jovany Choi MD [address] [place] [address] Research 01/25/2021 Telephone Oncology: [address] 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 Date Recorded COVID-19 Exposure Response 01/25/2021 7:12 [...] as of this encounter Miscellaneous Notes * Research - Fadia Mcmillan - 01/25/2021 3:33 PM CDT CLINICAL RESEARCH NOTE FOR [facility] #[id number] "A Phase III, Randomized, Multi-center, Open-label Study of Trastuzumab Deruxtecan (T-DXd) Versus Investigators Barba ce Chemotherapy in HER2-low, Hormone Receptor Positive Breast Cancer Patients wh ose Disease has Progressed on Endocrine Therapy in the Metastatic Setting (DESTI [id number])" NADYA #[id number] Pt will be considered Screen Failure for clinical trial. HER2 local testing does not match central laboratory testing from 07/07/20 liver, right lobe mass biopsy tissue. Local pathology: HER2 Low (HER2 IHC 1+) Central laboratory testing: HER2 >0 <1+ Spoke with pt over phone. She verbalized understanding. Her appts were cancelled for 01/25. documented in this encounter Plan of Treatment Not on filedocumented as of this encounter Visit Diagnoses Not on filedocumented in this encounter Additional Health Concerns Noted Time Assessment 01/13/2021 11:23 AM CDT A fall risk assessment has been complet ed for the patient documented as of this encounter Care Teams Start Date End Date Product Tester Fiberglass Relationship Specialty 06/07/20 Evan Sierra MD PCP - General Family [facility] [place] [address] 07/21/20 Segun Merrill MD [address] [place] [address] documented as of this encounter
--- OUTSIDE RECORDS SUMMARY | 2021-02-21 13:33 | XMS REPORT | Encounter Summary ---
Author Author [facility] Organization [facility] Address Unknown Phone Unavailable Care Team Providers Care Financial Services Agent Name Role Phone Evan Sierra MD PCP Ashley Merrill MD Unavailable [phone] Encounter Details Care Team Description Date Type Department Jovany Choi MD [address] [place] [address] 01/25/2021 Hospital Imaging, CT: [place] Encounter [facility] [address] [facility]. [address], [address] [place] [phone] Social History Date Tobacco Use Types Packs/Day [...] at Date Recorded Female 02/14/2021 9:03 AM MANAGEMENT SME Date Recorded COVID-19 Exposure Response 01/25/2021 7:12 [...] encounter Care Teams Start Date End Date Financial Services Agent Relationship Specialty 06/07/20 Evan Sierra MD PCP - General [address] [address] 07/21/20 Segun Merrill MD [address] [place] [address] documented as of this encounter
--- OUTSIDE RECORDS SUMMARY | 2021-02-21 13:33 | XMS REPORT | Encounter Summary ---
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
--- OUTSIDE RECORDS SUMMARY | 2021-02-21 13:33 | XMS REPORT | Encounter Summary ---
Author Author [facility] Organization [facility] Address Unknown Phone Unavailable Care Team Providers Care Internet Assessor Name Role Phone Evan Sierra MD PCP Ashley Merrill MD Unavailable [phone] Encounter Details Care Team Description Date Type Department Jovany Choi MD [address] [place] [address] Malignant neoplasm of overlapping sites of both breasts in female, estrogen receptor positive (HCC) (Primary Dx); Clinical trial participant 01/17/2021 Orders Only Oncology: [address] 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 Date Recorded COVID-19 Exposure Response 01/20/2021 9:59 [...] Not on filedocumented as of this encounter Results * TROPONIN-I (01/25/2021 8:10 AM CDT) Troponin-I 0.00 0.0 - 0.05 NG/ML [facility] Specimen Blood Performing Organization Address City/State/ZIP Code P chad Number [facility] [address] [place] [address] documented in this encounter Visit Diagnoses Diagnosis Malignant neoplasm of overlapping sites of both breasts in female, estrogen receptor positive (HCC) - Primary Clinical trial participant documented in this encounter Additional Health Concerns Noted Time Assessment 01/13/2021 11:23 AM CDT A fall risk assessment has been complet ed for the patient documented as of this encounter Care Teams Start Date End Date Internet Assessor Relationship Specialty 06/07/20 Evan Sierra MD PCP - General Family [address] [place] [address] 07/21/20 Segun Merrill MD [address] [facility] [place], [place] [id number] documented as of this encounter
--- OUTSIDE RECORDS SUMMARY | 2021-02-21 13:34 | XMS REPORT | Encounter Summary ---
Author Author [facility] Organization [facility] Address Unknown Phone Unavailable Care Team Providers Care Cycle Repairer Name Role Phone Evan Sierra MD PCP Ashley Merrill MD Unavailable [phone] Encounter Details Care Team Description Date Type Department Jovany Choi MD [address] [place] [address] 01/16/2021 Orders Only Oncology: [facility] [address] 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
--- OUTSIDE RECORDS SUMMARY | 2021-02-21 13:34 | XMS REPORT | Encounter Summary ---
Author Author [facility] Organization [facility] Address Unknown Phone Unavailable Care Team Providers Care Golf Cart Maker Name Role Phone Evan Sierra MD PCP Ashley Merrill MD Unavailable Reason for Referral * Radiology Services (Routine) - Authorized Diagnoses / Procedures Referred By Contact Referred To Conta ct Specialty Diagnoses Malignant neoplasm of overlapping sites of both breasts in female, estrogen receptor positive (HCC) Clinical trial participant Procedures [place] [address] [place] [address] [place] [address]. Level 1, [address] [place], [place] Radiology Referral ID Status Reason Start Date Expiration Visits Vi sits Date Requested Authorized [id number] Authorized 01/16/2021 07/17/2022 1 1 Encounter Details Care Team Description Date Type Department Jovany Choi MD [address] [place] [address] Malignant neoplasm of overlapping sites of both breasts in female, estrogen receptor positive (HCC) (Primary Dx); Clinical trial participant 01/16/2021 Orders Only Oncology: [address] 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 The previously measured community health program representative right lower lobe nodule again measures [...] scattered small pulmonary metastases. The previously measured community health program representative right lower lobe nodule again measures [...] [facility] Specific 1.010 1.003 - 1.035 [facility] [place]-Urine pH,UA 5.5 5.0 - 8.0 [facility] Protein,UA NEG NEG-NEG [facility] Glucose,UA NEG NEG-NEG [facility] Ketones,UA NEG NEG-NEG [facility] Bilirubin,UA NEG NEG-NEG [facility] Blood,UA NEG NEG-NEG [facility] Urobilinogen,UA NORMAL NORM-NORMAL [facility] Nitrite,UA NEG NEG-NEG [facility] Leukocytes,UA NEG NEG-NEG [facility] Specimen Urine specimen (specimen) - Urine Performing Organization Address City/[facility]/ZIP Code P chad Number [facility] [address] [place] [address] * HIV 1& 2 AG-AB SCRN W REFLEX HIV 1 PCR QUANT (01/25/2021 8:10 AM CDT) Pathologist [facility] HIV 1 and 2 AG NONREACTIVEComment: Negative NR-NONREACTIVE [facility] AB Screen for HIV-1 Ag and HIV-1/2 specific antibodies. Specimen Blood Performing Organization Address [facility] P chad Number [facility] [address] [place] [address] * HEPATITIS C VIRAL LOAD PCR QUANT (01/25/2021 8:10 AM CDT) Pathologist [facility] Hepatitis C HCV RNA Not Detected <12 IU/mL [facility] Virus, IU/mL Comment: The test method detects HCV viral load using the Ray RealTime assay. Please correlate results with the clinical status of the patient. Specimen Blood Performing Organization Address [facility] P chad Number [facility] [address] [place] [phone] * HEPATITIS B SURFACE AG (01/25/2021 8:10 AM CDT) Pathologist [facility] HBsAg NONREACTIVEComment: HBs NR-NONREACTIVE [facility] antigen not detected. Specimen Blood Performing Organization Address City/[facility] P chad Number [facility] [address] [place] [address] * PTT (APTT) (01/25/2021 8:10 AM CDT) Pathologist [facility] APTT 30.9 24.0 - 36.5 SEC [facility] Specimen Blood Performing Organization Address City/[facility] Code P chad Number [facility] [address] [place] [address] * PROTIME INR (PT) (01/25/2021 8:10 AM CDT) INR 1.0 0.8 - 1.2 MAIN LAB Specimen Blood Performing Organization Address City/State/ZIP Code P chad Number [facility] [address] [place] [phone] * MAGNESIUM (01/25/2021 8:10 AM CDT) Magnesium 2.4 1.6 - 2.6 mg/dL [facility] Specimen Blood Performing Organization Address City/[facility]/ZIP Code P chad Number [facility] [address] [place] [address] * LDH-LACTATE DEHYDROGENASE (01/25/2021 8:10 AM CDT) Lactate 383 (H) 100 - 210 U/L [facility] Dehydrogenase Specimen Blood Performing Organization Address City/[facility]/ZIP Code P chad Number [facility] [address] [place] [address] * COMPREHENSIVE METABOLIC PANEL (01/25/2021 8:10 AM CDT) Sodium 133 (L) 137 - 147 MMOL/L [facility] Potassium 3.8 3.5 - 5.1 MMOL/L [facility] Chloride 98 98 - 110 MMOL/L [facility] Glucose 111 (H) 70 - 100 MG/DL [facility] Blood Urea 13 7 - 25 MG/DL [facility] Nitrogen Creatinine 0.76 0.4 - 1.00 MG/DL [facility] Calcium 9.2 8.5 - 10.6 MG/DL [facility] Total Protein 7.2 6.0 - 8.0 G/DL [facility] Total Bilirubin 0.4 0.3 - 1.2 MG/DL [facility] Albumin 4.2 3.5 - 5.0 G/DL [facility] Alk Phosphatase 243 (H) 25 - 110 U/L [facility] AST (SGOT) 76 (H) 7 - 40 U/L [facility] CO2 27 21 - 30 MMOL/L [facility] ALT (SGPT) 33 7 - 56 U/L [facility] Anion Gap 8 3 - 12 [facility] eGFR Non >60 >60 mL/min [facility] Comment: Tunisian The eGFR is not validated f or use in drug dosing adjustments. Continue to use estimated creatinine clearance per dosing reference text. Please contact the Clinical Pharmacist for questions. eGFR >60 >60 mL/min [facility] Tun[place]ian Comment: The eGFR is not validated for use in drug dosing adjustments. Continue to use estimated creatinine clearance per dosing reference text. Please contact the Clinical Pharmacist for questions. Specimen Blood Performing Organization Address City/[facility]/ZIP Code P chad Number [facility] [address] [place] [address] * CBC AND DIFF (01/25/2021 8:10 AM [...] City/State/ZIP Code P chad Number [facility] [address] [place] [address] documented in this encounter Visit Diagnoses Diagnosis Malignant neoplasm of overlapping sites of both breasts in female, estrogen receptor positive (HCC) - Primary Clinical trial participant Malignant neoplasm of overlapping sites of both breasts in female, estrogen receptor positive (HCC) Clinical trial participant documented in this encounter Additional Health Concerns Noted Time Assessment 01/13/2021 11:23 AM CDT A fall risk assessment has been complet ed for the patient documented as of this encounter Care Teams Start Date End Date Golf Cart Maker Relationship Specialty 06/07/20 Evan Sierra MD PCP - General Family [address] [place] [address] 07/21/20 Segun eMrrill MD [address] [facility] [place], [place] [phone] documented as of this encounter
--- OUTSIDE RECORDS SUMMARY | 2021-02-21 13:34 | XMS REPORT | Encounter Summary ---
Author Author [facility] Organization [facility] Address Unknown Phone Unavailable Care Team Providers Care Bridge Painter Name Role Phone Evan Sierra MD PCP Ashley Merrill MD Unavailable Reason for Referral * Radiology Services (Routine) - Pending Submission Diagnoses / Procedures Referred By [facility] Malignant neoplasm of left breast in female, estrogen receptor positive, unspecified site of breast (HCC) Procedures CT ABD/PELV W CONTRAST Jovany Choi MD [address] [place] [address] [place] [address]. Level 1, [address] [place] [address] Radiology Referral ID Status Reason Start Date Expiration Visits Vi sits Date Requested Authorized [id number] Pending 11/04/2020 11/04/2021 1 1 Submission * Radiology Services (Routine) - RTA Non Electronic Diagnoses / Procedures Referred By Contact [facility] Malignant neoplasm of left breast in female, estrogen receptor positive, unspecified site of breast (HCC) Procedures CT CHEST W CONTRAST Jovany Choi MD [address] [place] [address] [place] [address]. Level 1, [address] [place], [place] Radiology Referral ID Status Reason Start Date Expiration Visits Vi sits Date Requested Authorized [id number] RTA Non 11/04/2020 05/07/2022 1 1 Electronic Reason for Visit * Radiology Services (Routine) - Pending Submission Diagnoses / Procedures Referred By Contact Referred To Conta ct Specialty Diagnoses Malignant neoplasm of left breast in female, estrogen receptor positive, unspecified site of breast (HCC) Procedures CT ABD/[place] [address] [place] [address] [place] [address]. Level 1, [address] [place] [address] Radiology Referral ID Status Reason Start Date Expiration Visits Vi sits Date Requested Authorized [id number] Pending 11/04/2020 11/04/2021 1 1 Submission Encounter Details Care Team Description Date Type Department Jovany Choi MD [address] [place] [address] 01/13/2021 Hospital Imaging, [facility] [address] [place] [address]. Level 1, [address] [place], [place] [phone] Social History Date Tobacco Use Types Packs/Day [...] at Date Recorded Female 02/14/2021 9:03 AM QUALITY REP Date Recorded COVID-19 Exposure Response 01/13/2021 8:06 [...] mg (2 pills) every night at bedtime. 12/21/2020 01/17/2021 abemaciclib (VERZENIO) Take one 56 tablet 3 150 mg tabletIndications: tablet by Malignant neoplasm of mouth twice overlapping sites of both daily. breasts in female, estrogen receptor positive (HCC) 01/06/2021 02/03/[address] (CYMBALTA) Take one [...] Name Priority Date/Time Associated Diag nosis CT ABD/PELV W CONTRAST Routine 01/13/2021 Maligna nt neoplasm of 8:51 AM CDT left breast in female, estrogen receptor positive, unspecified site of breast (HCC) CT CHEST W CONTRAST Routine 01/13/2021 Malignant neoplasm of 8:51 AM CDT left breast in female, estrogen receptor positive, unspecified site of breast (HCC) POC CREATININE, RAD 01/13/2021 8:22 AM CDT HC CBC W/ AUTOMATED DIFF Routine 01/13/2021 Malig nant neoplasm of 8:15 AM CDT left breast in female, estrogen receptor positive, unspecified site of breast (HCC) HC COMPREHENSIVE Routine 01/13/2021 Malignant sam plasm of METABOLIC PANEL 8:15 AM CDT left breast in fema le, estrogen receptor positive, unspecified site of breast (HCC) documented in this encounter Results * CT ABD/PELV W CONTRAST (01/13/2021 8:51 [...] P chad Number [facility] [address] [place] [address] * COMPREHENSIVE METABOLIC PANEL (01/13/2021 8:15 AM CDT) Sodium 133 (L) 137 - 147 MMOL/L [facility] Potassium 4.5 3.5 - 5.1 MMOL/L [facility] Chloride 96 (L) 98 - 110 MMOL/L [facility] Glucose 112 (H) 70 - 100 MG/DL [facility] Blood Urea 9 7 - 25 MG/DL [facility] Nitrogen Creatinine 1.02 (H) 0.4 - 1.00 MG/DL [facility] Calcium 9.4 8.5 - 10.6 MG/DL [facility] Total Protein 7.3 6.0 - 8.0 G/DL [facility] Total Bilirubin 1.0 0.3 - 1.2 MG/DL [facility] Albumin 4.4 3.5 - 5.0 G/DL [facility] Alk Phosphatase 162 (H) 25 - 110 U/L [facility] AST (SGOT) 46 (H) 7 - 40 U/L [facility] CO2 26 21 - 30 MMOL/L [facility] ALT (SGPT) 13 7 - 56 U/L [facility] Anion Gap 11 3 - 12 [facility] eGFR Non 55 (L) >60 mL/min [facility] Comment: Barbadian The eGFR is not validated f or use in drug dosing adjustments. Continue to use estimated creatinine clearance per dosing reference text. Please contact the Clinical Pharmacist for questions. eGFR >60 >60 mL/min [facility] Barbadian Comment: The eGFR is not validated for use in drug dosing adjustments. Continue to use estimated creatinine clearance per dosing reference text. Please contact the Clinical Pharmacist for questions. Specimen Performing Organization Address City/State/ZIP Code P chad Number [facility] [address] [place] [address] * CBC AND DIFF (01/13/2021 8:15 AM CDT) White Blood 2.2 (L) 4.5 - 11.0 K/UL [facility] Cells RBC 3.47 (L) 4.0 - 5.0 M/UL [facility] Hemoglobin 12.4 12.0 - 15.0 GM/DL [facility] Hematocrit 35.1 (L) 36 - 45 % [facility] MCV 101.1 (H) 80 - 100 FL [facility] MCH 35.6 (H) 26 - 34 PG [facility] MCHC 35.2 32.0 - 36.0 G/DL [facility] RDW 14.1 11 - 15 % [facility] Platelet Count 193 150 - 400 K/UL [facility] MPV 6.9 (L) 7 - 11 FL [facility] Neutrophils 61 41 - 77 % [facility] Lymphocytes 23 (L) 24 - 44 % [facility] Monocytes 13 (H) 4 - 12 % [facility] Eosinophils 1 0 - 5 % [facility] Basophils 2 0 - 2 % [facility] Absolute 1.40 (L) 1.8 - 7.0 K/UL [facility] Neutrophil Count Absolute Lymph 0.50 (L) 1.0 - 4.8 K/UL [facility] Count Absolute 0.30 0 - 0.80 K/UL [facility] Monocyte Count Absolute 0.00 0 - 0.45 K/UL [facility] Eosinophil Count Absolute 0.00 0 - 0.20 K/UL [facility] Basophil Count Specimen Performing Organization Address City/State/ZIP Code P chad Number [facility] [address] [place] [address] documented in this encounter Visit Diagnoses Diagnosis Malignant neoplasm of left breast in fe male, estrogen receptor positive, unspecified site of breast (HCC) documented in this encounter Administered Medications Action Date Dose Rate Site Medication Order MAR Action 01/13/2021 8:48 AM CDT 100 mL iohexoL (OMNIPAQUE-350) 350 mg/mL Given injection 100 mL 100 mL, Intravenous, ONCE, 1 dose, On 01/13/21 at 0815, NOTE: This is a HIGH ALERT Medication. 01/13/2021 8:48 AM CDT 50 mL sodium chloride PF 0.9% injection 50 mL Given 50 mL, Intravenous, ONCE, 1 dose, On Fr i 01/13/21 at 0815, Intra-procedure (IR) documented in this encounter Orders First Ordered Date Medications Ordered That Might Not Have Count Last Ordered Date Been Administered iopamidol 370 (ISOVUE-370) injection 100 1 01/13/2021 mL documented in this encounter Additional Health Concerns Noted Time Assessment 01/13/2021 11:23 AM CDT A fall risk assessment has been complet ed for the patient documented as of this encounter Care Teams Start Date End Date Bridge Painter Relationship Specialty 06/07/20 Evan Sierra MD PCP - General Family [facility] [place] [address] 07/21/20 Segun Merrill MD [address] [place] [address] documented as of this encounter
--- OUTSIDE RECORDS SUMMARY | 2021-02-21 13:34 | XMS REPORT | Encounter Summary ---
Author Author [facility] Organization [facility] Address Unknown Phone Unavailable Care Team Providers Care Hatchery Man Name Role Phone Evan Sierra MD PCP Ashley Merrill MD Unavailable [phone] Reason for Visit * Reason Onset Date Comments Pain 01/06/2021 Encounter Details Care Team Description Date Type Department Ashley Merrill MD [address] [place] [address] Pain 01/06/2021 Telephone Palliative Care: We [address] 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 documented in this encounter Miscellaneous Notes * Telephone Encounter - Eusebia Olsen RN - 01/06/2021 1:19 PM CDT Amy said her leg pain hasn't improved since increasing gabapentin to [address] Merrill feels the drug will not be effective at a higher dose, s tara symptoms haven't improved at 600 mg tid. Instructed to taper off of gabapentin by reducing to 300 mg tid x 3 days, then 3 00 mg bid x 3 days, then 300 mg HS for three days - then STOP. After tapering off of gabapentin Amy is to start duloxetine 30 mg qd. Rx sent to pharmacy. Patient voiced understanding. documented in this encounter Plan of Treatment Not on filedocumented as of this encounter Visit Diagnoses Not on filedocumented in this encounter Additional Health Concerns Noted Time Assessment 12/16/2020 8:57 AM CDT A fall risk assessment has been complet ed for the patient documented as of this encounter Care Teams Start Date End Date Hatchery Man Relationship Specialty 06/07/20 Evan Sierra MD PCP - General Family [facility] [place] [address] 07/21/20 Segun Merrill MD [address] [place] [address] documented as of this encounter
--- OUTSIDE RECORDS SUMMARY | 2021-02-21 13:34 | XMS REPORT | Encounter Summary ---
Author Author [facility] Organization [facility] Address Unknown Phone Unavailable Care Team Providers Care Bearing Inspector Name Role Phone Evan Sierra MD PCP Ashley Merrill MD Unavailable [phone] Encounter Details Care Team Description Date Type Department Jovany Choi MD [address] [place] [address] 01/16/2021 Orders Only Oncology: [facility] [address] 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
--- OUTSIDE RECORDS SUMMARY | 2021-02-21 13:34 | XMS REPORT | Encounter Summary ---
Author Author [facility] Organization [facility] Address Unknown Phone Unavailable Care Team Providers Care Motor And Chassis Inspector Name Role Phone Evan Sierra MD PCP Ashley Merrill MD Unavailable Reason for Referral * Radiology Services (Routine) - Authorized Diagnoses / Procedures Referred By Contact Referred To Conta ct Specialty Diagnoses Malignant neoplasm of overlapping sites of both breasts in female, estrogen receptor positive (HCC) Clinical trial participant Procedures CT HEAD WO/W CONTRAST Jovany Choi MD [address] [place] [address] [place] [address]. Level 1, [address] [place], [place] [phone] Radiology Referral ID Status Reason Start Date Expiration Visits Vi sits Date Requested Authorized [id number] Authorized 01/13/2021 01/13/2022 1 1 * Test (Routine) - Authorized Diagnoses / Procedures Referred By Contact Referred To Conta ct Specialty Diagnoses Malignant neoplasm of overlapping sites of both breasts in female, estrogen receptor positive (HCC) Clinical trial participant Procedures 2D + DOPPLER ECHO CT ECHO TTHRC R-T 2D W/WOM-MODE COMPL SPEC&COLR D Jovany Choi MD [address] [place] [address] [facility] [employer] [address], [address] [place] [address] Cardiology Referral ID Status Reason Start Date Expiration Visits Vi sits Date Requested Authorized [id number] Authorized 01/13/2021 01/13/2022 1 1 * Radiology Services (Routine) - Authorized Diagnoses / Procedures Referred [facility] Malignant neoplasm of overlapping sites of both breasts in female, estrogen receptor positive (HCC) Clinical trial participant Procedures NM BONE SCAN WHOLEBODY Jovany Choi MD [address] [place] [address] Level [address], [address] [place], [place] Radiology Referral ID Status Reason Start Date Expiration Visits Vi sits Date Requested Authorized [id number] Authorized 01/13/2021 01/13/2022 7 7 Encounter Details Care Team Description Date Type Department Jovany Choi MD [address] [place] [address] Malignant neoplasm of overlapping sites of both breasts in female, estrogen receptor positive (HCC) (Primary Dx); Clinical trial participant 01/13/2021 Orders Only Oncology: [facility] [place] [address] [place] [address] Social History Date Tobacco Use Types Packs/Day [...] at Date Recorded Female 02/14/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 Clinical trial [id number] [id number]. Technique: Delayed whole-body scintigrams were obtained. In [...] Clinical trial participant [Z00.6 (ICD-10-CM)]. Clinical trial [id number] [id number]. Technique: Delayed whole-body scintigrams were obtained. In [...] on 01/25/2021 10:02 AM. Performing Organization Address City/State/ZIP Code P chad Number [facility] RESULTS * PFT COMPLETE PULM FUNCTION (01/25/2021 7:25 AM CDT) FVC-Pre 2.14 L [facility] FVC-%Pred-pre 78 % [facility] FEV1-Pre 1.72 L [facility] FEV1-%Pred-Pre 79 % [facility] FEV1/FVC-Pre 80 % [facility] [id number] 68 % [facility] [id number] 1.79 L/sec [facility] [id number]-P 87 % [facility] re RVPleth-Pre [...] MAIN DLVA-#SD -0.144 ml/min/mmHg/L [facility] [id number] 76 % [facility] Specimen Narrative Performing Organization Address City/State/ZIP Code P chad Number [facility] [address] [place], [place] [address] * 2D + DOPPLER [...] estrogen receptor positive (HCC) Clinical trial participant Malignant neoplasm of overlapping sites of both breasts in female, estrogen receptor positive (HCC) Clinical trial participant Malignant neoplasm of overlapping sites of both breasts in female, estrogen receptor positive (HCC) Clinical trial participant documented in this encounter Additional Health Concerns Noted Time Assessment 01/13/2021 11:23 AM CDT A fall risk assessment has been complet ed for the patient documented as of this encounter Care Teams Start Date End Date Motor And Chassis Inspector Relationship Specialty 06/07/20 Evan Sierra MD PCP - General [address] [address] 07/21/20 Segun Merrill MD [address] [place] [address] documented as of this encounter
--- OUTSIDE RECORDS SUMMARY | 2021-02-21 13:34 | XMS REPORT | Encounter Summary ---
Author Author [facility] Organization [facility] Address Unknown Phone Unavailable Care Team Providers Care Reefer Engineer Name Role Phone Evan Sierra MD PCP Ashley Merrill MD Unavailable [phone] Reason for Visit * Reason Onset Date Comments Medication Refill 12/30/2020 Encounter Details Care Team Description Date Type Department Ashley Merrill MD [address] [place] [address] 12/30/2020 Refill Palliative Care: We [address] 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 Date Recorded COVID-19 Exposure Response 12/16/2020 8:52 [...] Date End Date Prescription Sig Dispensed Refills 12/30/2020 01/26/2021 morphine SR (MS CONTIN) Take one 90 tablet 0 15 mg tablet tablet by mouth every 8 hours documented in this encounter Plan of Treatment Not on filedocumented as of this encounter Visit Diagnoses Not on filedocumented in this encounter Discontinued Medications Start Date End Date Medication Sig Discontinue Reason 11/30/2020 12/30/2020 morphine SR (MS CONTIN) Take one Reorder 15 mg tablet tablet by mouth every 8 hours documented as of this encounter Additional Health Concerns Noted Time Assessment 12/16/2020 8:57 AM CDT A fall risk assessment has been complet ed for the patient documented as of this encounter Care Teams Start Date End Date Reefer Engineer Relationship Specialty 06/07/20 Evan Sierra MD PCP - General Family [address] [place] [address] 07/21/20 Segun Merrill MD [address] [facility] [place], [place] [phone] documented as of this encounter
--- OUTSIDE RECORDS SUMMARY | 2021-02-21 13:34 | XMS REPORT | Encounter Summary ---
Author Author [facility] Organization [facility] Address Unknown Phone Unavailable Care Team Providers Care Brush Holder Assembler Name Role Phone Evan Sierra MD PCP Ashley Merrill MD Unavailable [phone] Encounter Details Care Team Description Date Type Department Jovany Choi MD [address] [place] [address] 01/13/2021 Documentation Oncology: [employer] [facility] [employer] [facility] [address] 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 FITTER Date Recorded COVID-19 Exposure Response 01/13/2021 8:06 [...] Notes * Research - Fadia Mcmillan - 01/13/2021 1:09 PM CDT Study Title: A Phase III, Randomized, Multi-center, Open-label Study of Trastuzu mab Deruxtecan (T-DXd) Versus Investigators Choice Chemotherapy in HER2-low, Hormone Receptor Positive Breast Cancer Patients whose Disease has Progressed on Endocrine Therapy in the Metastatic Setting ([id number]) [facility]: [id number] Consent Version Date: Jul 18, 2020 Clinical trial participation and research nature of the trial were discussed wit h the participant during this visit. Participant was alert and oriented during c onsent discussion. Participant was informed that clinical trial is voluntary and she may withdraw consent at any time for any reason by notifying study team. St lam purpose, procedures, tests, samples to be obtained, potential side effects, benefits, foreseeable risks and duration of study were discussed. HIPAA informat ion, compensation and insurance pre-certification were discussed per consent for rosibel. An appointment with the financial counselor will be scheduled for the partici nahun. Alternative courses of treatment were also discussed per consent. Andrews rush verbalized understanding. Participant was given time to review the consent form and to discuss participati on in this study. Questions asked were answered to her satisfaction and particip adri voiced desire to sign consent today. Participant signed consent without coer cion and undue influence. A copy of the signed consent was given to the particip adri and emailed to [facility] Health Information Management ([facility]) for scanning into e participant's medical record in [facility] [employer]. Contact information for the study tea rosibel was given to the participant. No research specific procedures took place prior to consenting. Participant was informed study participation can be terminated due to disease pr ogression, participant withdrawal, unanticipated toxicity, certified fire investigator discreti on, sponsor or FDA. Participant was informed that new findings involving potential risk will be disc ussed for continuous consenting to trial. Tiffany MCMILLAN [phone] documented in this encounter Plan of Treatment Not on filedocumented as of this encounter Visit Diagnoses Not on filedocumented in this encounter Additional Health Concerns Noted Time Assessment 01/13/2021 11:23 AM CDT A fall risk assessment has been complet ed for the patient documented as of this encounter Care Teams Start Date End Date Brush Holder Assembler Relationship Specialty 06/07/20 Evan Sierra MD PCP - [address] [place] [address] 07/21/20 Segun Merrill MD [address] [place] [address] documented as of this encounter
--- OUTSIDE RECORDS SUMMARY | 2021-02-21 13:34 | XMS REPORT | Encounter Summary ---
Author Author [facility] Organization [facility] Address Unknown Phone Unavailable Care Team Providers Care Chicken And Fish Cleaner Name Role Phone Evan Sierra MD PCP Ashley Merrill MD Unavailable [phone] Reason for Visit * Reason Onset Date Comments Palliative Care 01/11/2021 Encounter Details Care Team Description Date Type Department Ashley Merrill MD [address] [place] [address] Palliative Care 01/11/2021 Telephone Palliative Care: We [address] 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 She is h aving episodes of feeling hot and cold, sweats, irritable and not sleeping well. She tried putting a heating pad on her back, and it really helped with her leg pain. Cautioned about burn risks related to use of heating pad. Discussed that she could slow the taper, but she just wants to "get it over with". She is wo rried that if she starts the duloxetine and it doesn't work, she will have anoth er withdrawal to go through, but she still wants to try it. She says "I can't w alk around with a heating pad all the time." She asked if increasing the morphi ne would be helpful. I will discuss with Dr Merrill. Amy requests that her 01/27 return appt be coordinated with her oncology appt. We are unable to see her on 01/13, when she sees Dr Choi, but we will move her return appt to coordinate with Dr Choi's next appt. documented in this encounter Plan of Treatment Not on filedocumented as of this encounter Visit Diagnoses Not on filedocumented in this encounter Additional Health Concerns Noted Time Assessment 12/16/2020 8:57 AM CDT A fall risk assessment has been complet ed for the patient documented as of this encounter Care Teams Start Date End Date Chicken And Fish Cleaner Relationship Specialty 06/07/20 Evan Sierra MD PCP - General [place] [address] [facility] [place] [address] 07/21/20 Segun Merrill MD [address] [facility] [place] [phone] (Work) documented as of this encounter
--- OUTSIDE RECORDS SUMMARY | 2021-02-21 13:34 | XMS REPORT | Encounter Summary ---
Author Author [facility] Organization [facility] Address Unknown Phone Unavailable Care Team Providers Care Seafood Clerk Name Role Phone Evan Sierra MD PCP Ashley Merrill MD Unavailable [phone] Reason for Visit * Reason Comments Follow Up Encounter Details Care Team Description Date Type Department Jovany Choi MD [address] [place] [address] Bilateral malignant neoplasm of breast i n female, estrogen receptor positive, unspecified site of breast (HCC) (Primary Dx) 01/13/2021 Office Visit Oncology: [address] 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 documented as of this encounter Last Filed Vital Signs Reading Time Taken Comments Vital Sign 131/79 01/13/2021 11:24 AM CDT Blood Pressure 104 01/13/2021 11:24 AM CDT Pulse 36.3 C (97.3 F) 01/13/2021 11:24 AM CDT Temperature 16 01/13/2021 11:24 AM CDT Respiratory Rate 100% 01/13/2021 11:24 AM CDT Oxygen Saturation - - Inhaled Oxygen Concentration 44.4 kg (97 lb 12.8 oz) 01/13/2021 11:24 AM CDT Weight 152.4 cm (5') 01/13/2021 11:24 AM CDT Height 19.1 01/13/2021 11:24 AM CDT Body Mass Index documented in this encounter Functional Status Date of Assessment Functional Status Response 06/13/2020 Does the patient have a hearing impairment: No 06/13/2020 Does the patient have a visual impairment: Yes documented as of this encounter Progress Notes * Jovany Choi MD - 01/13/2021 11:30 AM CDT Images from the original note were not included. Name: Amy Lobato : 1960 AGE: 60 y. o. DATE OF SERVICE: 01/13/2021 Subjective: Reason for Visit: Follow Up Amy Lobato is a 60 y.o. female. Cancer Staging Malignant neoplasm of overlapping sites of both breasts in female, estrogen rece ptor positive (HCC) Staging form: Breast, AJCC 8th Edition - Clinical stage from 07/12/2020: Stage IV (cT1c, cN1, pM1, ER+, PA+, HER2-) - Si gned by Ratna Ashraf APRN-BOBBIN COLLECTOR on 07/12/2020 History of Present Illness Amy Lobato is a 60-year-old postmenopausal female who was diagnosed with a lef t breast cancer in October 2017 and received treatment in [place], [place]. She u nderwent bilateral mastectomy and left sided sentinel lymph node biopsy on 2017. Tumor size was 1.3 cm, 1 out of 7 lymph nodes was positive. ER was 95%, PA 0%, HER-2 1+ by IHC. MammaPrint score [...] d. She is currently taking anastrozole and izfm-rxz-hurnwop pain medicines and tramadol with inadequate pain control. She has recently moved to [facility], and wants to receive therapy here. No family history of breast cancer. Brother had colon cancer. Another brother had neuroendocrine carcinoma. She underwent a CT-guided biopsy of left iliac bone. This showed metastatic car cinoma consistent with mammary origin. ER was 16%, PA 0%, HER-2 1+ by IHC. Bon e scan showed findings compatible with multifocal scattered osseous metastatic d isease. CT of the chest abdomen and pelvis showed multifocal focal osseous meta stasis. Also multifocal hepatic metastatic disease. Liver biopsy from 07/07/2020 showed metastatic carcinoma consistent with breast primary ER 99%, PA 0%, HER2 1 + IHC, Ki67 42%. PRESENT THERAPY: Faslodex monthly (07/15/2020) Verzenio 150mg BID (07/16/2020). Xg sean every 4 weeks. Ms. Lobato is here today for results of her scans. Review of Systems Constitutional: Positive for fatigue. Eyes: Positive for photophobia and discharge. Respiratory: Positive for shortness of breath. Gastrointestinal: Positive for diarrhea and nausea. Musculoskeletal: Positive for back pain. Neurological: Positive for weakness. Psychiatric/Behavioral: Positive for sleep disturbance. No Known Allergies Objective: abemaciclib (VERZENIO) 150 mg tablet Take one tablet by mouth twice daily. duloxetine DR (CYMBALTA) 30 mg capsule Take one capsule by mouth daily. gabapentin (NEURONTIN) 600 mg tablet Take one tablet by mouth every 8 hours. Indications: neuropathic pain (Patient taking differently: Take 600 mg by mouth every 8 hours. Taper off starting 01/06/21: 300 mg 3x day x 3 days, then 300 mg 2x a day x 3 days, then 300 mg at bedtime for three days. THEN STOP Indication s: neuropathic pain) loperamide (IMODIUM A-D) 2 mg capsule Take [...] pills) nica ry night at bedtime. Vitals: 01/13/21 1124 BP: 131/79 BP Source: Arm, Right Upper Patient Position: Sitting Pulse: 104 Resp: 16 Temp: 36.3 C (97.3 F) TempSrc: Temporal SpO2: 100% Weight: 44.4 kg (97 lb 12.8 oz) Height: 152.4 cm (60") PainSc: Eight Body mass index is 19.1 kg/m. Pain Score: Eight Pain Loc: Leg Fatigue Scale: 0-None Pain [...] diff Lab Results Component Value Date/Time WBC 2.2 (L) 01/13/2021 08:15 AM RBC 3.47 (L) 01/13/2021 08:15 AM HGB 12.4 01/13/2021 08:15 AM HCT 35.1 (L) 01/13/2021 08:15 AM MCV 101.1 (H) 01/13/2021 08:15 AM MCH 35.6 (H) 01/13/2021 08:15 AM MCHC 35.2 01/13/2021 08:15 AM RDW 14.1 01/13/2021 08:15 AM PLTCT 193 01/13/2021 08:15 AM MPV 6.9 (L) 01/13/2021 08:15 AM Lab Results Component Value Date/Time NEUT 61 01/13/2021 08:15 AM ANC 1.40 (L) 01/13/2021 08:15 AM LYMA 23 (L) 01/13/2021 08:15 AM ALC 0.50 (L) 01/13/2021 08:15 AM SANDEEP 13 (H) 01/13/2021 08:15 AM AMC 0.30 01/13/2021 08:15 AM EOSA 1 01/13/2021 08:15 AM AEC 0.00 01/13/2021 08:15 AM BASA 2 01/13/2021 08:15 AM ABC 0.00 01/13/2021 08:15 AM Comprehensive Metabolic Profile Lab Results Component Value Date/Time NA 133 (L) 01/13/2021 08:15 AM K 4.5 01/13/2021 08:15 AM CL 96 (L) 01/13/2021 08:15 AM CO2 26 01/13/2021 08:15 AM GAP 11 01/13/2021 08:15 AM BUN 9 01/13/2021 08:15 AM CR 1.0 01/13/2021 08:22 AM CR 1.02 (H) 01/13/2021 08:15 AM GLU 112 (H) 01/13/2021 08:15 AM GLU 102 (H) 08/19/2020 01:49 PM Lab Results Component Value Date/Time CA 9.4 01/13/2021 08:15 AM ALBUMIN 4.4 01/13/2021 08:15 AM TOTPROT 7.3 01/13/2021 08:15 AM ALKPHOS 162 (H) 01/13/2021 08:15 AM AST 46 (H) 01/13/2021 08:15 AM ALT 13 01/13/2021 08:15 AM TOTBILI 1.0 01/13/2021 08:15 AM GFR 55 (L) 01/13/2021 08:15 AM GFRAA >60 01/13/2021 08:15 AM None of the abnormal lab results [...] or ascites. 3. Progressive osseous metastatic disease. Assessment and Plan: 1. Amy is a [...] carcinoma consistent with breast primary ER 99%, PA 0%, HER2 1+ IHC, Ki67 42%. We recommended Faslodex and Verzenio; sta rted 07/15/2020. 3. Results of scans from 01/13/2021 explained. She was told that there was progr ession and we will stop Faslodex and Verzenio. We are recommending a clinical tr patrick [id number]. She would be randomized to Enhertu or Xeloda. She was told the side effects and signed the consent. 4. 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 5. Bone mets; she will continue Xgeva every 4 weeks. She was told to take Calciu m and Vitamin D. 6. Pain; continue MS Contin and oxycodone. [facility]. 7. Diarrhea; continue Imodium as needed. 8. RTC in 2 weeks to start treatment. My collaborating MD Dr Jovany Choi. For up to date information on the COVID-19 virus, visit the CDC website. https:/ /www.cdc.gov/coronavirus General supportive care during cold and flu season and infection prevention reminders: o Wash hands often with soap and water for at least 20 seconds o Cover your mouth and nose o Social distancing: try to maintain 6 feet between you and other people o Stay home if sick and symptoms mild or manageable - If you must be around people wear a mask If you are having symptoms of a lower respiratory infection (cough, shortnes s of breath) and/or fever AND either traveled in last 30 days (internationally o r to region of exposure) OR known exposure to patient with COVID19: o Call your primary care provider for questions or health needs. - Tell your doctor about your recent travel and your symptoms o In a medical emergency, call 911 or go to the nearest emergency room. Ratna Ashraf APRN-BOBBIN COLLECTOR ATTESTATION Patient ws seen with SHARRI Arevalo. I conducted the history, review o f systems, physical exam, assessment and plan myself. I made and discussed the treatment plan with the patient who asked appropriate questions that were answer ed. Patient understood the discussion and agreed to proceed with the plan. Thi s note accurately and completely reflects my work and decisions made by me. Staff name: Jovany Choi MD Date: 01/24/2021 documented in this encounter Plan of Treatment Not on filedocumented as of this encounter Visit Diagnoses Diagnosis Bilateral malignant neoplasm of breast in female, estrogen receptor positive, unspecified site of breast (HCC) - Primary documented in this encounter Discontinued Medications Start Date End Date Medication Sig Discontinue Reason 12/16/2020 01/13/2021 gabapentin (NEURONTIN) Take one 600 mg tabletIndications: tablet by neuropathic pain mouth every 8 hours. Indications: neuropathic pain documented as of this encounter Additional Health Concerns Noted Time Assessment 01/13/2021 11:23 AM CDT A fall risk assessment has been complet ed for the patient documented as of this encounter Care Teams Start Date End Date Seafood Clerk Relationship Specialty 06/07/20 Evan Sierra MD PCP - [address] [address] 07/21/20 Segun Merrill MD [address] [place] [address] documented as of this encounter
--- OUTSIDE RECORDS SUMMARY | 2021-02-21 13:34 | XMS REPORT | Encounter Summary ---
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 [place] [phone] Referral ID Status Reason Start Date Expiration Visits Vi sits Date Requested Authorized [id number] Closed 07/12/2020 07/12/2021 99 99 Encounter Details Care Team Description Date Type Department Jovany Choi MD [address] [place] [address] 01/13/2021 Hospital Oncology: [place] [address] 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 No pertinent changes since last assessment. documented in this encounter Plan of Treatment Not on filedocumented as of this encounter Visit Diagnoses Diagnosis Malignant neoplasm of overlapping sites of both breasts in female, estrogen receptor positive (HCC) - Primary documented in this encounter Administered Medications Action Date Dose Rate Site Medication Order MAR Action 01/13/2021 9:35 AM CDT 120 mg Arm, Rig ht denosumab (XGEVA) injection 120 mg Given 120 mg, Subcutaneous, ONCE, 1 dose, On Sat01/13/21 at 0936, Allow vial to com e to room temperature prior to administration. NOTE: This is a HIGH ALERT Medication. 01/13/2021 9:37 AM CDT 500 mg Gluteal, Left fulvestrant (FASLODEX) syringe 500 mg Given 500 mg, Intramuscular, ONCE, 1 dose, On Sat01/13/21 at 0937, For IM use only. Administer as two 5 mL injections slowl y over 1-2 minutes, one in each buttock. NURSING: Administration required by chemotherapy credentialed nurse when ordered for a cancer indication NOTE: This is a HIGH ALERT Medication. documented in this encounter Additional Health Concerns Noted Time Assessment 01/13/2021 11:23 AM CDT A fall risk assessment has been complet ed for the patient documented as of this encounter Care Teams Start Date End Date Field Clerk Relationship Specialty 06/07/20 Evan Sierra MD PCP - General [address] [place] [address] 07/21/20 Segun Merrill MD [address] [place] [address] documented as of this encounter
--- OUTSIDE RECORDS SUMMARY | 2021-02-21 13:34 | XMS REPORT | Encounter Summary ---
Author Author [facility] Organization [facility] Address Unknown Phone Unavailable Care Team Providers Care Physician Anesthesiologist Name Role Phone Evan Sierra MD PCP Ashley Merrill MD Unavailable [phone] Encounter Details Care Team Description Date Type Department Jovany Choi MD [address] [place] [address] 01/13/2021 Hospital Imaging, [facility]: [place] [facility] [address] [facility]. 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 * ECG-SCAN (01/13/2021 12:00 AM CDT) Narrative 01/13/2021 12:00 AM CDT Ordered by an unspecified provider. * ECG-SCAN (01/13/2021 12:00 AM CDT) Narrative 01/13/2021 12:00 AM CDT Ordered by an unspecified provider. documented in this encounter Visit Diagnoses Not on filedocumented in this encounter Additional Health Concerns Noted Time Assessment 01/13/2021 11:23 AM CDT A fall risk assessment has been complet ed for the patient documented as of this encounter Care Teams Start Date End Date Physician Anesthesiologist Relationship Specialty 06/07/20 vEan Sierra MD PCP - General [facility] [place] [address] 07/21/20 Segun Merrill MD [address] [place] [address] documented as of this encounter
--- OUTSIDE RECORDS SUMMARY | 2021-02-21 13:34 | XMS REPORT | Encounter Summary ---
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 [place] [address] documented as of this encounter
[2021-02-21] MEDS ORDERED: ONDANSETRON 4 MG/2 ML (SDV) Z0FRAN IVP ONE (14:00)
[2021-02-21] MEDS ORDERED: fentaNYL INJ 100 MCG/2 ML AMP IVP ONE (14:00)
--- NOTE | 2021-02-21 14:08 | Diagnostic Imaging Report ---
Indication: Fall. TIME OF EXAM: 1:39 PM AP view of pelvis and 2 views left hip were obtained. The femoral acetabular alignment is normal. Joint space well maintained. There is some cortical interruption at the femoral head neck junction laterally suggestive of a fracture. There are areas of sclerosis identified in the bony pelvis as well as the proximal femora bilaterally. 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 The rami appear intact. IMPRESSION: There are findings suggestive of a subcapital left hip fracture. 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 Dictated by: Dictated on workstation # [id number]
--- NOTE | 2021-02-21 14:59 | ED General ---
General Stated Complaint: FALL History of Present Illness Date Seen by Provider: Feb 21, 2021 Time Seen by Provider: 14:55 Initial Comments Patient presenting to emergency department for evaluation of left hip pain status post mechanical fall she says she tripped over her feet and landed on her left hip. She was not able to bear weight but she says that she does not have any other areas of pain or trauma including no head neck chest abdomen back or other extremity pain. She does have a chronic neuropathy with numbness in her legs but she says it is not changed. 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 She is getting chemotherapy at this time and is following at [facility] with her oncologist being Dr. Vizcaino. She is in no acute distress with normal vital signs. Allergies and Home Medications Allergies Coded Allergies: No Known Drug Allergies (Unverified , 02/21/21) Patient Home Medication List Home Medication List Reviewed: Yes Review of Systems Review of Systems Constitutional: no symptoms reported EENTM: no symptoms reported Respiratory: no symptoms reported Cardiovascular: no symptoms reported Gastrointestinal: no symptoms reported Musculoskeletal: back pain, joint pain Skin: no symptoms reported Psychiatric/Neurological: No Symptoms Reported All Other Systems Reviewed Negative Unless Noted: Yes Physical Exam Vital Signs Capillary Refill : Height, Weight, BMI Height: '" Weight: lbs. oz. kg; BMI Method: General Appearance: No Apparent Distress, WD/WN HEENT: PERRL/EOMI Neck: Supple Respiratory: Lungs Clear, No Respiratory Distress Cardiovascular: Regular Rate, Rhythm Gastrointestinal: Non Tender, Soft Back: Normal Inspection, No Vertebral Tenderness Extremity: Normal Capillary Refill, Other (Left hip is tender to palpation with no obvious deformity or step-off.) Neurologic/Psychiatric: Alert, Oriented x3 Skin: Warm/Dry Progress/Results/Core Measures Suspected Sepsis SIRS Temperature: Pulse: Respiratory Rate: Laboratory Tests 02/21/21 14:30: Blood Pressure / Mean: Laboratory Tests 02/21/21 14:30: Results/Orders Lab Results Laboratory Tests Test 02/21/21 14:30 Range/Units My Orders Orders - JONATHON RAMSAY DO Cbc With Automated Diff (02/21/21 13:31) Comprehensive Metabolic Panel (02/21/21 13:31) Partial Thromboplastin Time (02/21/21 13:31) Protime With Inr (02/21/21 13:31) Pelvis With Left Hip 2-3 View (02/21/21 13:31) Ondansetron Injection (Zofran Injectio (02/21/21 14:00) Fentanyl Inj (Sublimaze Injection) (02/21/21 14:00) Vital Signs/I&O Capillary Refill : Progress Note : Progress Note Patient has findings of a left subcapital hip fracture. I spoke to the orthopedic surgeon on-call at [facility], Dr. Meade and he reviewed the films and recommended transfer to [facility] given the metastatic disease to her bone I spoke to the transfer center at [facility] and they agreed to accept the patient. She was accepted by Dr. Luis A Delatorre. Departure Impression Primary Impression: Closed left hip fracture Qualified Codes: S72.002A - Fracture of unspecified part of neck of left femur, initial encounter for closed fracture Additional Impressions: Breast cancer metastasized to bone Qualified Codes: C50.919 - Malignant neoplasm of unspecified site of unspecified female breast; C79.51 - Secondary malignant neoplasm of bone Breast cancer metastasized to liver Qualified Codes: C50.919 - Malignant neoplasm of unspecified site of unspecified female breast; C78.7 - Secondary malignant neoplasm of liver and intrahepatic bile duct Disposition: 02 XFER SHT-TRM HOSP Condition: Stable Transfer Transfer Reason: Exceeds level of care Transfer Facility: [facility] Method of Transfer: EMS JONATHON RAMSAY DO Feb 21, 2021 14:59
[2021-02-21 15:01] VITALS: BP 129/68
[2021-02-21 15:03] LABS: PROTHROMBIN TIME PATIENT 13.3 SEC (12.2-14.7)
[2021-02-21 15:06] LABS: BASOPHILS % (AUTO) 1 % (0-10); EOSINOPHILS % (AUTO) 1 % (0-10); HEMATOCRIT 32 % (35-52); HEMOGLOBIN 10.5 g/dL (11.5-16.0); LYMPHOCYTES # (AUTO) 0.7 X 10^3 (1.0-4.0); LYMPHOCYTES % (AUTO) 11 % (12-44); MEAN CORPUSCULAR HEMOGLOBIN 34 pg (25-34); MEAN CORPUSCULAR HGB CONC 33 g/dL (32-36); MEAN CORPUSCULAR VOLUME 101 fL (80-99); MEAN PLATELET VOLUME 8.8 fL (9.0-12.2); MONOCYTES % (AUTO) 10 % (0-12); NEUTROPHILS % (AUTO) 77 % (42-75); PLATELET COUNT 420 10^3/uL (130-400); WHITE BLOOD COUNT 6.4 10^3/uL (4.3-11.0)
[2021-02-21 15:07] LABS: MONOCYTES # (AUTO) 0.6 X 10^3 (0.0-1.0)
[2021-02-21 15:21] LABS: POTASSIUM 4.3 MMOL/L (3.6-5.0)
[2021-02-21 15:24] LABS: CALCIUM 8.8 MG/DL (8.5-10.1); CREATININE SERUM 0.54 MG/DL (0.60-1.30)
[2021-02-21 15:25] LABS: ALBUMIN 3.6 GM/DL (3.2-4.5); BILIRUBIN,TOTAL 0.3 MG/DL (0.1-1.0); TOTAL PROTEIN 6.6 GM/DL (6.4-8.2)
[2021-02-21] MEDS ORDERED: morphine INJ 10 MG/ML 1ML (SYR OR VIAL) IVP STA ×2 (15:35→16:35)
[2021-02-21] MEDS ORDERED: FLUORESCEIN (FLUOR-I-STRIPS) 1 MG STRP OU ONE (17:45)
[2021-02-21] MEDS ORDERED: TETRACAINE 0.5% OPHTH SOLN 4 ML BTL (SINGLE DOSE ONLY) OU ONE (17:45)
== END 2021-02-21 18:12 | disposition short-term general hospital (02) ==
LOC: ER FS 13:27
DX: C79.51 Secondary malignant neoplasm of bone (principal); C78.7 Secondary malignant neoplasm of liver and intrahepatic bile duct; S72.012A Unspecified intracapsular fracture of left femur, initial encounter for closed fracture; W01.0XXA Fall on same level from slipping, tripping and stumbling without subsequent striking against object, initial encounter
CPT/HCPCS: 36415; 73502; 80053; 85025; 85610; 85730